=== PATIENT | female | born 1985 | race Caucasian/White ===

== ENCOUNTER 2020-02-23 22:53 | Emergency (ER) | payer BC ==
--- OUTSIDE RECORDS SUMMARY | 2020-02-23 22:55 | XMS REPORT | Clinical Summary ---
:1985 Author Organization [facility] Address [address] [place] [address] Care Team Providers Name Role Phone Angelita Gilbert MD Primary Care Provider Allergies Active Allergy Reactions Severity Noted Date Comments No Known Drug Allergies Other (See Comments) 6 Medications Medication Sig Dispensed Refills Start Date End Date Status acyclovir (ZOVIRAX) 400 TAKE ONE TABLET 60 tablet 1 03/21/2016 Active MG tablet BY MOUTH TWICE A DAY levomefolate calcium Take 7.5 mg by 30 tablet 2 10/12/2016 Active (L-METHYLFOLATE) 7.5 mg mouth daily. tabletIndications: Dysthymia Active Problems Problem Noted Date Anxiety 06/10/2015 Generalized anxiety disorder 06/10/2015 Herpes simplex virus (HSV) infection 06/10/2015 Irregular menstrual cycle 06/10/2015 Paresthesia 06/10/2015 Medical History Medical History Date Comments Anxiety Skin abnormality Family History Medical History Relation Name Comments Anxiety disorder Father Depression Father Diabetes Father Anxiety disorder Mother Depression Mother Relation Name Status Comments Father Mother Social History Tobacco Use Types Packs/Day Years Used Date Current Every Day Smoker Cigarettes Tobacco Cessation: Ready to Quit: No; Co unseling Given: Yes Comments: The patient started smoking at age 18 Alcohol Use Drinks/Week oz/Week Comments Yes Social Drinker Sex Assigned at Date Recorded Not on file Last Filed Vital Signs Not on file Plan of Treatment Health Maintenance Due Date Last Done Comments CERVICAL CANCER SCREENING 11/19/2007 INFLUENZA VACCINE 11/30/2019 Results Not on fileafter 02/22/2019
[2020-02-23 23:41] LABS: Absolute Lymphocytes (CBC) 2.9 K/uL (0.7-4.9); Basophils % 0.6 % (0-1.3); Hematocrit 34.2 % (36.0-45.0); Lymphocytes % 31.6 % (15.3-44.8); MPV 9.3 fL (7.6-11.3); RBC Red Blood Cell Count 3.88 M/uL (3.86-4.86)
[2020-02-23] MEDS ORDERED: ONDANSETRON 4 MG/2 ML VIAL ONE (23:47)
[2020-02-23] MEDS ORDERED: MAGNES/ALUMIN/SIMET 30ML UCUP ONE (23:47)
[2020-02-23] MEDS ORDERED: PANTOPRAZOLE 40 MG INJ ONE (23:47)
[2020-02-23] MEDS ORDERED: LIDOCAINE VISCOUS 2% SOLN 15 ML UDC ONE (23:48)
[2020-02-23] MEDS ORDERED: NA CHLORIDE 0.9% 1,000 ML ONE (23:48)
[2020-02-23 23:59] LABS: ALT/SGPT 19 U/L (12-78); AST/SGOT 14 U/L (15-37); Albumin 3.6 g/dL (3.4-5.0); Alkaline Phosphatase 43 U/L (45-117); BUN Blood Urea Nitrogen 12 mg/dL (7-18); Bicarbonate 26 mmol/L (21-32); Bilirubin Direct < 0.1 mg/dL (0-0.2); Bilirubin Total 0.3 mg/dL (0.2-1.0); Glucose Level 90 mg/dL (74-106); Lipase 68 U/L (73-393); Potassium 3.4 mmol/L (3.5-5.1); Protein, Total 7.3 g/dL (6.4-8.2); Sodium Level 143 mmol/L (136-145)
[2020-02-24] MEDS ORDERED: MORPHINE 2 MG/ML SYR ONE ×2 (00:26→01:00)
[2020-02-24 00:36] LABS: Urine Blood 2+ (NEG); Urine Glucose NEGATIVE (NEG); Urine Protein NEGATIVE (NEG); Urine Specific Gravity 1.015 (1.005-1.030)
[2020-02-24 01:21] LABS: Barbiturates NEGATIVE (NEGATIVE); Benzodiazepines NEGATIVE (NEGATIVE); Cocaine NEGATIVE (NEGATIVE); METHAMPHETAM NEGATIVE (NEGATIVE); Methadone NEGATIVE (NEGATIVE); Opiates NEGATIVE (NEGATIVE); Phencyclidine NEGATIVE (NEGATIVE); THC Cannibis NEGATIVE (NEGATIVE)
--- NOTE | 2020-02-24 01:59 | EDPHYS ---
Physician Documentation [facility] Name: Debra Elizondo Age: 34 yrs Sex: Female : 1985 Arrival Date: 02/23/2020 Time: 22:54 Bed 13 Private MD: ED Physician Abdoulaye Verde HPI: 02/22 23:10 This 34 yrs old Female presents to ER via Ambulatory with complaints of cp Abdominal Pain. 23:10 The patient presents with abdominal pain mid abdomen. Onset: The symptoms/episode cp began/occurred 2 day(s) ago. The symptoms radiate to chest. Associated signs and symptoms: Pertinent positives: nausea, Pertinent negatives: diarrhea, dysuria, fever, vomiting, vomiting blood. The symptoms are described as burning. Severity of pain: in the emergency department the pain is unchanged despite home interventions. The patient has experienced a previous episode, last month, seen at [facility]. Historical: - Allergies: 23:03 No Known Allergies; sg - Home Meds: 23:03 None [Active]; sg - PMHx: 23:03 None; sg - PSHx: 23:03 LEEP (oop electrosurgical excision); sg - Immunization history:: Adult Immunizations up to date. - Social history:: Smoking status: Patient reports the use of cigarette tobacco products. ROS: 23:15 Constitutional: Negative for body aches, chills, fever, poor PO intake. cp 23:15 Eyes: Negative for injury, pain, redness, and discharge. cp 23:15 ENT: Negative for ear pain, sore throat, difficulty swallowing, difficulty handling secretions. 23:15 Cardiovascular: Positive for radiating pain from abdomen, Negative for palpitations. 23:15 Respiratory: Negative for cough, shortness of breath, wheezing. 23:15 Abdomen/GI: Positive for abdominal pain, nausea, Negative for vomiting, diarrhea, constipation, anorexia, hematemesis. 23:15 Back: Negative for radiated pain. 23:15 : Negative for urinary symptoms. 23:15 Neuro: Negative for altered mental status, headache, weakness. 23:15 All other systems are negative. Exam: 23:20 Constitutional: The patient appears in no acute distress, alert, awake, non-toxic, well cp developed, well nourished, uncomfortable. 23:20 Head/Face: Normocephalic, atraumatic. cp 23:20 Eyes: Periorbital structures: appear normal, Conjunctiva: normal, no exudate, no injection, Sclera: no appreciated abnormality, Lids and lashes: appear normal, bilaterally. 23:20 ENT: External ear(s): are unremarkable, Nose: is normal, Mouth: Lips: moist, Oral mucosa: moist, Posterior pharynx: Airway: no evidence of obstruction, patent. 23:20 Chest/axilla: Inspection: normal. 23:20 Cardiovascular: Rate: tachycardic, Rhythm: regular. 23:20 Respiratory: the patient does not display signs of respiratory distress, Respirations: normal, no use of accessory muscles, no retractions, labored breathing, is not present, Breath sounds: are clear throughout, no decreased breath sounds. 23:20 Abdomen/GI: Inspection: abdomen appears normal, Bowel sounds: active, all quadrants, Palpation: soft, in all quadrants, mild abdominal tenderness, in all quadrants, rebound tenderness, is not appreciated, voluntary guarding, is not appreciated, involuntary guarding, is not appreciated. 23:20 Back: CVA tenderness, is absent. Vital Signs: 22:59 Pulse 108; Resp 20; Pulse Ox 98% ; Weight 63.5 kg (R); Height 5 ft. 4 in. (162.56 cm) sg (R); Pain 10/10; 02/23 00:07 BP 141 / 100; Pulse 79; Resp 16; Pulse Ox 100% on R/A; jb4 01:00 BP 125 / 98; Pulse 66; Resp 16; Pulse Ox 100% on R/A; jb4 01:45 BP 126 / 97; Pulse 65; Resp 16; Pulse Ox 100% on R/A; Pain 2/10; jb4 02/22 22:59 Body Mass Index 24.03 (63.50 kg, 162.56 cm) sg MDM: 02/22 23:02 Patient medically screened. cp 02/23 00:00 Differential diagnosis: cholecystitis, Cholelithiasis, gastritis, pancreatitis, Peptic cp Ulcer Disease, Perf. Duodenal Ulcer, Perf. Gastric Ulcer, Ureterolithiasis, urinary tract infection. 00:46 Data reviewed: vital signs, nurses notes, lab test result(s). Transition of care: After cp a detail discussion of the patient's case, care is transferred to Abdoulaye Verde MD. 02/22 23:06 Order name: Basic Metabolic Panel; Complete Time: 00:02 cp 02/23 00:40 Interpretation: Normal except: K 3.4; CL 111. cp 02/22 23:06 Order name: CBC with Diff; Complete Time: 00:02 cp 02/23 00:41 Interpretation: Normal except: HGB 11.5; HCT 34.2. cp 02/22 23:06 Order name: Hepatic Function; Complete Time: 00:02 cp 02/22 23:06 Order name: Lipase; Complete Time: 00:02 cp 02/23 00:40 Interpretation: LIP 68; Reviewed. cp 02/23 00:24 Order name: Urine Dipstick--Ancillary (enter results); Complete Time: 00:40 mw2 02/23 00:40 Interpretation: Normal except: UBLD 2+. cp 02/23 00:24 Order name: Urine --Ancillary (enter results); Complete Time: 00:40 mw2 02/23 00:08 Order name: CT Abd/Pelvis - IV Contrast Only cp 02/23 00:46 Order name: UDS; Complete Time: 01:23 cp 02/22 22:56 Order name: Urine Dipstick-Ancillary (obtain specimen); Complete Time: 23:30 cp 02/22 22:56 Order name: Urine Test (obtain specimen); Complete Time: 23:30 cp 02/22 23:06 Order name: IV Saline Lock; Complete Time: 23:31 cp 02/22 23:06 Order name: Labs collected and sent; Complete Time: 23:31 cp 02/23 00:46 Order name: EKG - Nurse/Tech; Complete Time: 01:08 cp Administered Medications: Discontinued: NS 0.9% 1000 ml IV at 1 bolus Per protocol; 1000 mL bolus 02/22 23:50 Drug: NS 0.9% 1000 ml Route: IV; Rate: 1 bolus; Site: right antecubital; [facility] 02/23 02:10 Follow up: Response: No adverse reaction; IV Status: Order to discontinue infusion 02/22 23:50 Drug: Zofran (Ondansetron) 4 mg Route: IVP; Site: right antecubital; 02/23 00:20 Follow up: Response: No adverse reaction [facility] 02/22 23:54 Drug: ProTONIX 40 mg Route: IVP; Site: right antecubital; jb4 02/23 00:20 Follow up: Response: No adverse reaction jb4 02/22 23:55 Drug: GI Cocktail without - (Maalox Suspension 30 ml, Lidocaine Liquid 2 % 15 jb4 ml) Route: PO; 02/23 00:25 Follow up: Response: No adverse reaction; No change in condition jb4 00:22 Drug: morphine 2 mg Route: IVP; Site: right antecubital; jb4 00:50 Drug: morphine 2 mg Route: IVP; Site: right antecubital; jb4 01:08 Follow up: Response: No adverse reaction; Pain is decreased; RASS: Alert and Calm (0) 4 Disposition: 04:20 Co-signature as Attending Physician, Abdoulaye Verde MD. mh7 Disposition: 02/24/20 01:59 Discharged to Home. Impression: Abdominal Pain, Vomiting. - Condition is Stable. - Discharge Instructions: Nausea and Vomiting, Adult, [id number], Abdominal Pain, Adult, Morm-[id number]-[id number], Clear Liquid Diet, [id number]-[id number]. - Prescriptions for Zofran ODT 4 mg Oral tablet,disintegrating - place 1 tablet by TRANSLINGUAL route every 8 hours As needed; 10 tablet. Bentyl 20 mg Oral Tablet - take 1 tablet by ORAL route every 6 hours As needed; 20 tablet. Pepcid 20 mg Oral Tablet - take 1 tablet by ORAL route every 12 hours for 5 days; 10 tablet. - Medication Reconciliation Form, Thank You Letter, Antibiotic Education, Prescription Opioid Use form. - Follow up: Private Physician; When: 1 - 2 days; Reason: Worsening of condition, Recheck today's complaints, Continuance of care, Re-evaluation by your physician. - Problem is new. - Symptoms have improved. Signatures: Dispatcher [employer] EDMS Andrés Cantu RN RN sg Page, Corey, PA PA cp Bryson, James, RN RN [facility] Abdoulaye Verde MD MD mh7 Corrections: (The following items were deleted from the chart) 02:10 01:59 02/24/2020 01:59 Discharged to Home. Impression: Abdominal Pain; Vomiting. jb4 Condition is Stable. Forms are Medication Reconciliation Form, Thank You Letter, Antibiotic Education, Prescription Opioid Use. Follow up: Private Physician; When: 1 - 2 days; Reason: Worsening of condition, Recheck today's complaints, Continuance of care, Re-evaluation by your physician. Problem is new. Symptoms have improved. mh7
--- NOTE | 2020-02-24 01:59 | ER ---
Nurse's Notes [facility] Name: Debra Elizondo Age: 34 yrs Sex: Female : 1985 Arrival Date: 02/23/2020 Time: 22:54 Bed 13 Private MD: Diagnosis: Abdominal Pain;Vomiting Presentation: 02/22 22:59 Chief complaint: Patient states: Reports epigastric pain described as pressure and sg burning sensation that radiates into the lower chest. pt states had similar episode several weeks ago, was seen at [place] [facility], obs overnight and improved was dc to home. pt states trying several OTC medications such as xantac,pepto/and gas x with no relief. pt denies N/V/D/Fever, states pain worsens with standing upright, nothing has relieved the pain. Coronavirus screen: Client denies travel out of the [place] in the last 14 days. At this time, the client does not indicate any symptoms associated with coronavirus-19. Ebola Screen: Patient negative for fever greater than or equal to 101.5 degrees Fahrenheit, and additional compatible Ebola Virus Disease symptoms Patient denies exposure to infectious person. Patient denies travel to an Ebola-affected area in the 21 days before illness onset. No symptoms or risks identified at this time. Initial Sepsis Screen: Does the patient meet any 2 criteria? No. Patient's initial sepsis screen is negative. Does the patient have a suspected source of infection? No. Patient's initial sepsis screen is negative. Risk Assessment: Do you want to hurt yourself or someone else? Patient reports no desire to harm self or others. Onset of symptoms was February 22, 2020. Care prior to arrival: None. Transition of care: patient was not received from another setting of care. 22:59 Acuity: FREDA 3 sg 22:59 Method Of Arrival: Ambulatory sg Historical: - Allergies: 23:03 No Known Allergies; sg - Home Meds: 23:03 None [Active]; sg - PMHx: 23:03 None; sg - PSHx: 23:03 LEEP (oop electrosurgical excision); sg - Immunization history:: Adult Immunizations up to date. - Social history:: Smoking status: Patient reports the use of cigarette tobacco products. Screenin:00 Abuse screen: Denies threats or abuse. Nutritional screening: No deficits noted. jb4 Tuberculosis screening: No symptoms or risk factors identified. Fall Risk None identified. Assessment: 23:00 General: Appears in no apparent distress. uncomfortable, Behavior is calm, cooperative, jb4 appropriate for age. Pain: Complains of pain in epigastric area Pain radiates to chest and neck Pain currently is 10 out of 10 on a pain scale. Quality of pain is described as burning. Neuro: Level of Consciousness is awake, alert, obeys commands, Oriented to person, place, time, situation. Cardiovascular: Patient's skin is warm and dry. Respiratory: Airway is patent Respiratory effort is even, unlabored, Respiratory pattern is regular, symmetrical. GI: Abdomen is flat, non-distended. : No signs and/or symptoms were reported regarding the genitourinary system. EENT: No signs and/or symptoms were reported regarding the EENT system. Derm: Skin is intact, Skin is pink, warm \T\ dry. Musculoskeletal: Circulation, motion, and sensation intact. Range of motion: intact in all extremities. 02/23 00:00 Reassessment: Patient appears in no apparent distress at this time. Patient and/or jb4 family updated on plan of care and expected duration. Pain level reassessed. Patient is alert, oriented x 3, equal unlabored respirations, skin warm/dry/pink. 01:00 Reassessment: Patient appears in no apparent distress at this time. Patient and/or jb4 family updated on plan of care and expected duration. Pain level reassessed. Patient is alert, oriented x 3, equal unlabored respirations, skin warm/dry/pink. 01:51 Reassessment: Patient appears in no apparent distress at this time. Patient and/or jb4 family updated on plan of care and expected duration. Pain level reassessed. Patient is alert, oriented x 3, equal unlabored respirations, skin warm/dry/pink. Vital Signs: 02/22 22:59 Pulse 108; Resp 20; Pulse Ox 98% ; Weight 63.5 kg (R); Height 5 ft. 4 in. (162.56 cm) sg (R); Pain 02/07; 02/23 00:07 BP 141 / 100; Pulse 79; Resp 16; Pulse Ox 100% on R/A; jb4 01:00 BP 125 / 98; Pulse 66; Resp 16; Pulse Ox 100% on R/A; jb4 01:45 BP 126 / 97; Pulse 65; Resp 16; Pulse Ox 100% on R/A; Pain 2/10; jb4 02/22 22:59 Body Mass Index 24.03 (63.50 kg, 162.56 cm) ED Course: 02/22 22:54 Patient arrived in ED. cl3 22:56 Raúl Escamilla PA is PHCP. cp 22:56 Abdoulaye Verde MD is Attending Physician. cp 22:59 Arm band placed on. sg 23:01 Triage completed. sg 23:13 Lane Lora, ARELI is Primary Nurse. jb4 23:28 Inserted saline lock: 20 gauge in right antecubital area, using aseptic technique. jp3 Blood collected. 23:28 Initial lab(s) drawn, by me, sent to lab. Patient maintains SpO2 saturation greater jp3 than 95% on room air. 23:31 Bed in low position. Call light in reach. Side rails up X 1. Warm blanket given. Verbal jp3 reassurance given. Pulse ox on. NIBP on. 02/23 00:51 CT Abd/Pelvis - IV Contrast Only In Process Unspecified. EDMS 02:09 No provider procedures requiring assistance completed. Patient did not have IV access jb4 during this emergency room visit. Administered Medications: Discontinued: NS 0.9% 1000 ml IV at 1 bolus Per protocol; 1000 mL bolus 02/22 23:50 Drug: NS 0.9% 1000 ml Route: IV; Rate: 1 bolus; Site: right antecubital; jb4 02/23 02:10 Follow up: Response: No adverse reaction; IV Status: Order to discontinue infusion jb4 02/22 23:50 Drug: Zofran (Ondansetron) 4 mg Route: IVP; Site: right antecubital; jb4 02/23 00:20 Follow up: Response: No adverse reaction jb4 02/22 23:54 Drug: ProTONIX 40 mg Route: IVP; Site: right antecubital; jb4 02/23 00:20 Follow up: Response: No adverse reaction jb4 02/22 23:55 Drug: GI Cocktail without - (Maalox Suspension 30 ml, Lidocaine Liquid 2 % 15 jb4 ml) Route: PO; 02/23 00:25 Follow up: Response: No adverse reaction; No change in condition jb4 00:22 Drug: morphine 2 mg Route: IVP; Site: right antecubital; jb4 00:50 Drug: morphine 2 mg Route: IVP; Site: right antecubital; jb4 01:08 Follow up: Response: No adverse reaction; Pain is decreased; RASS: Alert and Calm (0) jb4 Outcome: 01:59 Discharge ordered by . carrol 02:09 Discharged to home ambulatory, with family. jb4 02:09 Condition: stable 02:09 Discharge instructions given to patient, Instructed on discharge instructions, follow up and referral plans. medication usage, Demonstrated understanding of instructions, follow-up care, medications, Prescriptions given X 3. 02:10 Patient left the ED. jb4 Signatures: Dispatcher [employer] EDMS Andrés Cantu, RN RN Raúl Love PA PA cp Bryson, James, RN RN jb4 Deny Escobar jp3 Prieto Davison cl3 Abdoulaye Verde MD MD mh7
[2020-02-24 02:19] VITALS: O2SAT 100
[2020-02-24 02:22] VITALS: BP 126/97
--- NOTE | 2020-02-24 12:22 | RAD REPORT ---
EXAM DESCRIPTION: CT Abdomen and Pelvis With Intravenous Contrast CLINICAL HISTORY: The patient is 34 years old and is Female; ABD PAIN TECHNIQUE: Axial computed tomography images of the abdomen and pelvis with intravenous contrast. S agittal and coronal reformatted images were created and reviewed. This CT exam was performed using one or more of the following dose reduction techniques: automated exposure control, adjustment of t he mA and/or kV according to patient size, and/or use of iterative reconstruction technique. COMPARISON: No relevant prior studies available. FINDINGS: LUNG BASES: Unremarkable. No mass. No consolidation. ABDOMEN: LIVER: The liver is diffusely fatty. GALLBLADDER AND BILE DUCTS: The gallbladder is contracted. PANCREAS: No ductal dilation. No mass. SPLEEN: Unremarkable. ADRENALS: Unremarkable. No mass. KIDNEYS AND URETERS: Unremarkable. The kidneys enhance symmetrically. No obstructing renal or ur eteral calculus is seen. No hydronephrosis or hydroureter. No perinephric fluid or stranding. STOMACH AND BOWEL: The stomach is not well distended. The small bowel is normal in caliber. Stoo l is present throughout the colon. There is no mucosal thickening or evidence of bowel obstruction. PELVIS: APPENDIX: The appendix is normal in caliber without surrounding inflammation. BLADDER: Unremarkable. No mass. REPRODUCTIVE: Unremarkable as visualized. A tampon is in place. ABDOMEN and PELVIS: INTRAPERITONEAL SPACE: Unremarkable. No free air. No significant fluid collection. BONES/JOINTS: No acute fracture. SOFT TISSUES: The soft tissues are normal. VASCULATURE: Unremarkable. No abdominal aortic aneurysm. LYMPH NODES: Unremarkable. No enlarged lymph nodes. IMPRESSION: No acute findings on this contrasted CT of the abdomen and pelvis to explain the patient 's symptoms. Electronically signed by: Heike Alaniz MD 02/24/2020 1:08 AM CDT Due to temporary technical issues with the PACS/Fluency reporting system, reports are being signed by the in house radiologist without review as a courtesy to ensure prompt reporting. The interpreting r adiologist is fully responsible for the content of the report.
--- NOTE | 2020-02-25 10:10 | EKG ---
Test Date: 2020-02-24 Test Time: 00:57:38 Pick Up Operator: DANI MEASUREMENT RESULTS: Intervals: Rate: 62 NE: 170 QRSD: 84 QT: 400 QTc: 406 [place]: P: 55 NE: 170 QRS: 77 T: 62 INTERPRETIVE STATEMENTS: Normal sinus rhythm Normal ECG Compared to ECG 05/21/2015 19:50:07 Sinus arrhythmia no longer present Electronically Signed On 02-25-20 10:06:55 CDT by Steve Heart
== END 2020-02-24 02:10 | disposition home or self-care (01) ==
LOC: ER 22:53
DX: R11.10 Vomiting, unspecified (principal); F17.210 Nicotine dependence, cigarettes, uncomplicated
CPT/HCPCS: 96361; 93005; 85025; 80048; 36415; 81025; 80076; 80307 ×8; 81003; 83690; 74177; 96375; 96374; 99284; Q9967; C9113; J2270 ×2; J7030; J2405

== ENCOUNTER 2021-01-28 19:10 | Emergency (ER) | payer BC ==
[2021-01-28 20:01] LABS: Urine Blood 1+ (Negative); Urine Glucose Negative (Negative); Urine Protein Negative (Negative); Urine Specific Gravity 1.015 (1.005-1.030); Urine pH 5.5 (5.0-7.0)
[2021-01-28 20:25] LABS: Urine Specific Gravity/Preg 1.015 (1.005-1.030)
[2021-01-28 20:36] LABS: Absolute Lymphocytes (CBC) 2.8 K/uL (0.7-4.9); Basophils % 0.6 % (0-1.3); Hematocrit 37.4 % (36.0-45.0); Lymphocytes % 26.1 % (15.3-44.8); MPV 8.7 fL (7.6-11.3); RBC Red Blood Cell Count 4.04 M/uL (3.86-4.86)
[2021-01-28] MEDS ORDERED: ONDANSETRON 4 MG/2 ML VIAL ONE (20:43)
[2021-01-28] MEDS ORDERED: MORPHINE 4 MG/ML SYR ONE (20:43)
[2021-01-28] MEDS ORDERED: NA CHLORIDE 0.9% 1,000 ML ONE (20:43)
[2021-01-28] MEDS ORDERED: MAGNES/ALUMIN/SIMET 30ML UCUP ONE (20:43)
[2021-01-28] MEDS ORDERED: LIDOCAINE VISCOUS 2% SOLN 15 ML UDC ONE (20:44)
[2021-01-28] MEDS ORDERED: FAMOTIDINE 20 MG/2 ML VIAL IV ONE (20:44)
--- NOTE | 2021-01-28 20:47 | RAD REPORT ---
EXAM DESCRIPTION: US - Abdomen Exam Limited - 01/28/2021 8:32 pm CLINICAL HISTORY: Abdominal pain. COMPARISON: None. FINDINGS: The gallbladder wall is not thickened. A gallstone is not seen. The biliary tree is normal caliber. Mild fatty liver IMPRESSION: Unremarkable gallbladder ultrasound. Mild fatty liver
--- NOTE | 2021-01-28 20:54 | RAD REPORT ---
EXAM DESCRIPTION: CT - Abdomen Pelvis W Contrast - 01/28/2021 8:41 pm CLINICAL HISTORY: Abdominal pain COMPARISON: 2019 TECHNIQUE: Computed axial tomography of the abdomen pelvis was obtained. 100 cc Isovue-300 was admin istered intravenously. Oral contrast was not requested which limits evaluation of bowel. All CT scans are performed using dose optimization technique as appropriate and may include automated exposure control or mA/KV adjustment according to patient size. FINDINGS: Mild fatty liver. Low-density area within the left lobe is too small to characterize but p robably is benign Spleen, pancreas, adrenal and kidneys appear unremarkable. There is no evidence of diverticulitis. Normal appendix Tampon within the vagina IMPRESSION: No acute abnormality is displayed.
[2021-01-28 21:03] LABS: ALT/SGPT 33 U/L (12-78); AST/SGOT 19 U/L (15-37); Albumin 3.8 g/dL (3.4-5.0); Alkaline Phosphatase 42 U/L (45-117); BUN Blood Urea Nitrogen 12 mg/dL (7-18); Bicarbonate 27 mmol/L (21-32); Bilirubin Direct < 0.1 mg/dL (0-0.2); Bilirubin Total 0.2 mg/dL (0.2-1.0); Glucose Level 91 mg/dL (74-106); Lipase 101 U/L (73-393); Protein, Total 7.5 g/dL (6.4-8.2); Sodium Level 142 mmol/L (136-145)
--- NOTE | 2021-01-28 22:00 | ER ---
Nurse's Notes [facility] Name: Debra Elizondo Age: 35 yrs Sex: Female : 1985 Arrival Date: 01/28/2021 Time: 19:20 Bed DIS2 Private MD: Diagnosis: Upper abdominal pain, unspecified Presentation: 01/28 19:23 Chief complaint: Patient states: Pain in Abdomen, back and chest began yesterday. Pt vg1 denies NVD. Pt PCP, Dr Castro office, prescribed Pantoprazole and Famotidine today. Pt states medication is not working. Coronavirus screen: Vaccine status: Patient reports being unvaccinated. Ebola Screen: Patient negative for fever greater than or equal to 101.5 degrees Fahrenheit, and additional compatible Ebola Virus Disease symptoms. Initial Sepsis Screen: Does the patient meet any 2 criteria? No. Patient's initial sepsis screen is negative. Does the patient have a suspected source of infection? No. Patient's initial sepsis screen is negative. Risk Assessment: Do you want to hurt yourself or someone else? Patient reports no desire to harm self or others. Onset of symptoms was January 27, 2021. 19:23 Method Of Arrival: Ambulatory vg1 19:23 Acuity: FREDA 3 vg1 Triage Assessment: 19:29 General: Appears in no apparent distress. uncomfortable, Behavior is calm, cooperative. vg1 Pain: Complains of pain in epigastric area, right upper quadrant and left upper quadrant and back. 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 - Social history:: Smoking status: Patient reports the use of cigarette tobacco products, smokes one-half pack cigarettes per day. - Family history:: not pertinent. Screenin:16 Abuse screen: Denies threats or abuse. Denies injuries from another. Nutritional kg screening: No deficits noted. Tuberculosis screening: No symptoms or risk factors identified. Fall Risk None identified. Assessment: 19:40 General: Appears uncomfortable, Behavior is calm, cooperative, appropriate for age, kg quiet. Pain: Complains of pain in epigastric area, right upper quadrant and left upper quadrant Pain currently is 10 out of 10 on a pain scale. at worst was 10 out of 10 on a pain scale. level that patient reports is acceptable is 5 out of 10 on a pain scale. Quality of pain is described as aching, crampy, sharp, squeezing. Neuro: No deficits noted. Cardiovascular: No deficits noted. Respiratory: No deficits noted. GI: Reports upper abdominal pain, nausea. : No deficits noted. EENT: No deficits noted. Derm: No deficits noted. Musculoskeletal: No deficits noted. Vital Signs: 19:23 BP 146 / 91; Pulse 65; Resp 16; Temp 97.3; Pulse Ox 100% ; Weight 72.57 kg; Height 5 vg1 ft. 4 in. (162.56 cm); Pain 6/10; 22:28 BP 137 / 83; Pulse 79; Resp 20; Pulse Ox 98% on R/A; kg 19:23 Body Mass Index 27.46 (72.57 kg, 162.56 cm) vg1 ED Course: 19:20 Patient arrived in ED. cf2 19:26 Triage completed. vg1 19:29 Arm band placed on. vg1 19:32 Marnie Dougherty MD is Attending Physician. ma2 20:10 Inserted saline lock: 20 gauge in left antecubital area, using aseptic technique. Blood kg collected. 20:13 Stacy Ruelas, RN is Primary Nurse. kg 20:14 Basic Metabolic Panel Sent. kg 20:14 CBC with Diff Sent. kg 20:14 Hepatic Function Sent. kg 20:14 Lipase Sent. kg 20:14 Urine --Ancillary (enter results) Sent. kg 20:29 US Abdomen Limited In Process Unspecified. EDMS 20:40 CT Abd/Pelvis - IV Contrast Only In Process Unspecified. EDMS 21:16 Patient has correct armband on for positive identification. kg 21:59 Nataliya Neville MD is Referral Physician. ma2 22:28 IV discontinued, intact, bleeding controlled, No redness/swelling at site. Pressure kg dressing applied. 22:29 No provider procedures requiring assistance completed. kg Administered Medications: 20:31 Drug: morphine 4 mg Route: IVP; Site: left antecubital; kg 22:17 Follow up: Response: No adverse reaction; Marked relief of symptoms kg 20:32 Drug: NS 0.9% 1000 ml Route: IV; Rate: 1 bolus; Site: left antecubital; kg 22:30 Follow up: IV Status: Completed infusion; IV Intake: 1000ml kg 22:30 Follow up: Response: No adverse reaction kg 20:32 Drug: GI Cocktail without - (Maalox Suspension 30 ml, Lidocaine Liquid 2 % 15 kg ml) Route: PO; 22:18 Follow up: Response: No adverse reaction kg 20:35 Drug: Zofran (Ondansetron) 4 mg Route: IVP; Site: left antecubital; kg 22:18 Follow up: Response: No adverse reaction kg 20:37 Drug: Pepcid (famotidine) 20 mg Route: IVP; Site: left antecubital; kg 22:18 Follow up: Response: No adverse reaction kg 21:42 Drug: Dilaudid (HYDROmorphone) 1 mg Route: IVP; Site: left antecubital; kg 22:18 Follow up: Response: No adverse reaction; Marked relief of symptoms kg Intake: 22:30 IV: 1000ml; Total: 1000ml. kg Outcome: 21:59 Discharge ordered by . arash 22:29 Discharged to home ambulatory. kg 22:29 Condition: improved 22:29 Discharge instructions given to patient, Instructed on discharge instructions, follow up and referral plans. Demonstrated understanding of instructions, Prescriptions given X 1. 22:30 Patient left the ED. kg Signatures: Dispatcher [employer] EDMS Marnie Dougherty MD MD ma2 Lo Leyva 2 Cherelle Bruce, RN RN vg1 Stacy Ruelas RN RN kg Corrections: (The following items were deleted from the chart) 21:16 20:10 Inserted saline lock: 20 gauge in left antecubital area, using aseptic technique. kg kg
--- NOTE | 2021-01-28 22:00 | EDPHYS ---
Physician Documentation [facility] Name: Debra Elizondo Age: 35 yrs Sex: Female : 1985 Arrival Date: 01/28/2021 Time: 19:20 Bed DIS2 Private MD: ED Physician Marnie Dougherty HPI: 01/28 21:58 This 35 yrs old Female presents to ER via Ambulatory with complaints of ma2 Abdominal Pain. 21:58 The patient presents with abdominal pain in the epigastric area. Onset: The ma2 symptoms/episode began/occurred gradually, 1 week(s) ago. The symptoms do not radiate. Associated signs and symptoms: Pertinent negatives: blood in stools, constipation, dysuria, fever, vaginal discharge, vomiting blood. The symptoms are described as burning. Severity of pain: At its worst the pain was moderate in the emergency department the pain has improved. The patient has experienced similar episodes in the past, a few times. 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 - Social history:: Smoking status: Patient reports the use of cigarette tobacco products, smokes one-half pack cigarettes per day. - Family history:: not pertinent. ROS: 21:58 Constitutional: Negative for fever, chills, and weight loss. ma2 21:58 All other systems are negative. Exam: 21:58 Constitutional: This is a well developed, well nourished patient who is awake, alert, ma2 and in no acute distress. Head/Face: Normocephalic, atraumatic. Eyes: Pupils equal round and reactive to light, extra-ocular motions intact. Lids and lashes normal. Conjunctiva and sclera are non-icteric and not injected. Cornea within normal limits. Periorbital areas with no swelling, redness, or edema. ENT: Nares patent. No nasal discharge, no septal abnormalities noted. Tympanic membranes are normal and external auditory canals are clear. Oropharynx with no redness, swelling, or masses, exudates, or evidence of obstruction, uvula midline. Mucous membranes moist. Neck: Trachea midline, no thyromegaly or masses palpated, and no cervical lymphadenopathy. Supple, full range of motion without nuchal rigidity, or vertebral point tenderness. No Meningismus. Chest/axilla: Normal chest wall appearance and motion. Nontender with no deformity. No lesions are appreciated. Cardiovascular: Regular rate and rhythm with a normal S1 and S2. No gallops, murmurs, or rubs. Normal PMI, no JVD. No pulse deficits. Respiratory: Lungs have equal breath sounds bilaterally, clear to auscultation and percussion. No rales, rhonchi or wheezes noted. No increased work of breathing, no retractions or nasal flaring. Abdomen/GI: Soft, non-tender, with normal bowel sounds. No distension or tympany. No guarding or rebound. No evidence of tenderness throughout. Back: No spinal tenderness. No costovertebral tenderness. Full range of motion. Skin: Warm, dry with normal turgor. Normal color with no rashes, no lesions, and no evidence of cellulitis. MS/ Extremity: Pulses equal, no cyanosis. Neurovascular intact. Full, normal range of motion. Neuro: Awake and alert, GCS 15, oriented to person, place, time, and situation. Cranial nerves II-XII grossly intact. Motor strength 5/5 in all extremities. Sensory grossly intact. Cerebellar exam normal. Normal gait. Vital Signs: 19:23 BP 146 / 91; Pulse 65; Resp 16; Temp 97.3; Pulse Ox 100% ; Weight 72.57 kg; Height 5 vg1 ft. 4 in. (162.56 cm); Pain 6/10; 22:28 BP 137 / 83; Pulse 79; Resp 20; Pulse Ox 98% on R/A; kg 19:23 Body Mass Index 27.46 (72.57 kg, 162.56 cm) vg1 MDM: 19:33 Patient medically screened. ma2 21:58 Differential diagnosis: gastritis, gastroesophageal reflux disease, Hepatitis, Herpes ma2 Zoster, Irritable bowel syndrome. Data reviewed: vital signs, nurses notes. Counseling: I had a detailed discussion with the patient and/or guardian regarding: the historical points, exam findings, and any diagnostic results supporting the discharge/admit diagnosis, the presence of at least one elevated blood pressure reading (>120/80) during this emergency department visit, the need for outpatient follow up. Response to treatment: the patient's symptoms have resolved after treatment. 01/28 19:34 Order name: Basic Metabolic Panel [facility] 01/28 19:34 Order name: CBC with Diff [facility] 01/28 19:34 Order name: Hepatic Function [facility] 01/28 19:34 Order name: Lipase [facility] 01/28 19:35 Order name: Basic Metabolic Panel; Complete Time: 21:32 [facility] 01/28 19:35 Order name: CBC with Automated Diff; Complete Time: 21:32 [facility] 01/28 19:35 Order name: Liver (Hepatic) Function; Complete Time: 21:32 [facility] 01/28 19:35 Order name: Lipase; Complete Time: 21:32 [facility] 01/28 20:01 Order name: Urine Dipstick-Ancillary; Complete Time: 21:32 [facility] 01/28 20:03 Order name: Urine --Ancillary (enter results); Complete Time: 21:32 [facility] 01/28 20:07 Order name: CT Abd/Pelvis - IV Contrast Only; Complete Time: 21:32 [facility] 01/28 20:07 Order name: US Abdomen Limited; Complete Time: 21:32 [facility] 01/28 19:34 Order name: IV Saline Lock; Complete Time: 20:14 [facility] 01/28 19:34 Order name: Labs collected and sent; Complete Time: 20:14 [facility] 01/28 19:34 Order name: Urine Dipstick-Ancillary (obtain specimen); Complete Time: 20:13 [facility] 01/28 19:34 Order name: Urine Test (obtain specimen); Complete Time: 20:13 ma2 Administered Medications: 20:31 Drug: morphine 4 mg Route: IVP; Site: left antecubital; kg 22:17 Follow up: Response: No adverse reaction; Marked relief of symptoms kg 20:32 Drug: NS 0.9% 1000 ml Route: IV; Rate: 1 bolus; Site: left antecubital; kg 22:30 Follow up: IV Status: Completed infusion; IV Intake: 1000ml kg 22:30 Follow up: Response: No adverse reaction kg 20:32 Drug: GI Cocktail without - (Maalox Suspension 30 ml, Lidocaine Liquid 2 % 15 kg ml) Route: PO; 22:18 Follow up: Response: No adverse reaction kg 20:35 Drug: Zofran (Ondansetron) 4 mg Route: IVP; Site: left antecubital; kg 22:18 Follow up: Response: No adverse reaction kg 20:37 Drug: Pepcid (famotidine) 20 mg Route: IVP; Site: left antecubital; kg 22:18 Follow up: Response: No adverse reaction kg 21:42 Drug: Dilaudid (HYDROmorphone) 1 mg Route: IVP; Site: left antecubital; kg 22:18 Follow up: Response: No adverse reaction; Marked relief of symptoms kg Disposition Summary: 01/28/21 21:59 Discharge Ordered Location: Home ma2 Condition: Stable ma2 Diagnosis - Upper abdominal pain, unspecified ma2 Followup: ma2 - With: Nataliya Neville MD - When: Tomorrow - Reason: Continuance of care Discharge Instructions: - Discharge Summary Sheet ma2 - Abdominal Pain, Adult ma2 Forms: - Medication Reconciliation Form ma2 - Thank You Letter ma2 - Antibiotic Education ma2 - Prescription Opioid Use ma2 Prescriptions: - Diclofenac Sodium 75 mg Oral Tablet Sustained Release - take 1 tablet by ORAL route 2 times per day; 30 tablet; Refills: 0, Product ma2 Selection Permitted Signatures: Dispatcher [employer] Marnie Eugene MD MD ma2 Cherelle Bruce, RN RN vg1 Stacy Ruelas RN RN kg
[2021-01-28] MEDS ORDERED: HYDROMORPHONE HCL 1 MG/ML INJ ONE (22:10)
[2021-01-28 22:34] VITALS: TEMP 97.3
[2021-01-28 22:35] VITALS: BP 137/83; O2SAT 98
== END 2021-01-28 22:30 | disposition home or self-care (01) ==
LOC: ER 19:10
DX: R10.13 Epigastric pain (principal); K21.9 Gastro-esophageal reflux disease without esophagitis; F17.210 Nicotine dependence, cigarettes, uncomplicated
CPT/HCPCS: 96361; 85025; 80048; 36415; 81025; 82565; 80076; 81003; 83690; 74177; 76705; 96375; 96374; 99284; Q9967; J1170; J7030; J2405

== ENCOUNTER 2021-07-20 21:22 | Emergency (ER) | payer BC ==
--- OUTSIDE RECORDS SUMMARY | 2021-07-20 21:26 | XMS REPORT | Continuity of Care Document ---
:1985 Author Organization [facility] t Address [address] [place] [address] Care Team Providers Name Role Phone RADIOLOGY Attending Clinician Unavailable Physician, Primary or Family Admitting Clinician Unavailabl e Payers Payer Name Policy Type Policy Number Effective Date Expiration Date S ource Problems This patient has no known problems. Allergies, Adverse Reactions, Alerts Allergy Allergy Status Severity Reaction(s) Onset Inactive Treating Comm ents Source Name Type Date Date Clinician No Known DA [facility] No Known DA Active [facility] NO KNOWN Drug Active [facility] Medications This patient has no known medications. Procedures This patient has no known procedures. Encounters Start End Encounter Admission Attending Care Care Encounter Source Date/Time Date/Time Type Type Clinicians Facility Department ID 2020-07-13 Inpatient [facility] [id number] [facility] 12:37:00 [id number] [facility] 2020-05-11 2020-05-11 Outpatient R RADIOLOGY [facility] [id number] [facility] 00:00:00 00:00:00 [id number] [facility] 2020-05-06 2020-05-06 Outpatient R RADIOLOGY [facility] [id number] [facility] 09:00:00 09:00:00 [id number] [facility] Results Test Description Test Time Test Comments Results Result [facility] e Comments - XR CHEST 1 V 2020-07-13 13:34:00 [facility] 1985 Sex: F Name: MIKE GREGORIO [facility] : 1985 Age/S: 34 / F [id number] Unit #: [id number] Loc: [place] [address] Phys: Baldemar Diaz MD Acct: [id number] Dis Date: Status: REG ER PHONE #: [phone] Exam Date: 07/13/2020 1320 FAX #: Reason: CHEST PAIN EXAMS: CPT: [id number] XR CHEST 1 V 48546 Fluoro Time: DAP (Gy m2): Air Kerma (mGy): EXAM: - XR CHEST 1 V Location code:C3 HISTORY: Chest pain COMPARISON: None available time of interpretation. FINDINGS: Frontal view of the chest is submitted. Heart size and vascularity are within normal limits. The lungs are clear of focal consolidation. No effusion or evidence of pneumothorax.. No acute osseous pathology. IMPRESSION 1. No radiographic evidence of acute cardiopulmonary process. at 1334 Reported and signed by: Suzette Iverson M.D. CC: Baldemar Diaz MD PAGE 1 Signed Report Name: MIKE GREGORIO [facility] : 1985 Age/S: 34 / F [id number] Unit #: [id number] Loc: [place] [address] Phys: Baldemar Diaz MD Acct: [id number] Dis Date: Status: REG ER PHONE #: [phone] Exam Date: 07/13/2020 1320 FAX #: Reason: CHEST PAIN EXAMS: CPT: [id number] XR CHEST 1 V 50905 Fluoro Time: DAP (Gy m2): Air Kerma (mGy): <Continued> Technologist: Bobo Pulliam RT(R)(CT) Trnscb Date/Time: 07/13/2020 (1313) [id number] Orig Print D/T: S: 07/13/2020 (1844) PAGE 2 Signed Report
[2021-07-20 22:08] LABS: Urine Blood 3+ (Negative); Urine Glucose Negative (Negative); Urine Protein Negative (Negative); Urine Specific Gravity >=1.030 (1.005-1.030); Urine pH 5.5 (5.0-7.0)
[2021-07-20 22:22] LABS: Urine Specific Gravity/Preg >1.030 (1.005-1.030)
--- NOTE | 2021-07-20 23:48 | ER ---
Nurse's Notes [facility] Name: Debra Elizondo Age: 35 yrs Sex: Female : 1985 Arrival Date: 07/20/2021 Time: 21:27 Bed 20 Private MD: Diagnosis: Abnormal uterine and vaginal bleeding, unspecified Presentation: 07/20 21:41 Chief complaint: Patient states: "I've been on my period for 3 days, its very heavy to ab2 the point I have to wear a super tampon and a pad at the same time. For the past 2 days I have had this feeling that I cant even get the tampon in fully as if something is in there stopping it. I did a self exam and there is something hard in there." Pt c/o low back pain, abdominal pain and nausea as well. Coronavirus screen: Vaccine status: Patient reports being unvaccinated. Client denies travel out of the [place] in the last 14 days. At this time, the client does not indicate any symptoms associated with coronavirus-19. Ebola Screen: Patient negative for fever greater than or equal to 101.5 degrees Fahrenheit, and additional compatible Ebola Virus Disease symptoms Patient denies exposure to infectious person. Patient denies travel to an Ebola-affected area in the 21 days before illness onset. No symptoms or risks identified at this time. Initial Sepsis Screen: Does the patient meet any 2 criteria? No. Patient's initial sepsis screen is negative. Does the patient have a suspected source of infection? No. Patient's initial sepsis screen is negative. Risk Assessment: Do you want to hurt yourself or someone else? Patient reports no desire to harm self or others. Onset of symptoms is unknown. 21:41 Method Of Arrival: Ambulatory ab2 21:41 Acuity: FREDA 3 ab2 Triage Assessment: 21:46 General: Appears in no apparent distress. uncomfortable, Behavior is calm, cooperative, ab2 appropriate for age. Pain: Complains of pain in back, abdomen and pelvis. : Reports vaginal bleeding that is with clots, heavy flow. 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 - Social history:: Smoking status: Patient reports the use of cigarette tobacco products, smokes one-half pack cigarettes per day. Screenin:22 Abuse screen: Denies threats or abuse. Denies injuries from another. Nutritional kd3 screening: No deficits noted. Tuberculosis screening: No symptoms or risk factors identified. Fall Risk None identified. Assessment: 22:21 General: Appears in no apparent distress. Behavior is calm, cooperative, appropriate kd3 for age. Pain: Complains of pain in pelvis and abdomen and back. Respiratory: Airway is patent Trachea midline Respiratory effort is even, unlabored. : Genitalia appear normal. Vital Signs: 21:41 BP 142 / 96; Pulse 88; Resp 16; Temp 97.2(TE); Pulse Ox 98% on R/A; Weight 74.84 kg; ab2 Height 5 ft. 4 in. (162.56 cm); Pain 5/10; 22:21 BP 117 / 76; Pulse 84; Resp 16; Pulse Ox 98% on R/A; kd3 21:41 Body Mass Index 28.32 (74.84 kg, 162.56 cm) ab2 ED Course: 21:27 Patient arrived in ED. ja2 21:45 Triage completed. ab2 21:46 Arm band placed on left wrist. ab2 22:03 Praneeth Underwood PA is PHCP. jr8 22:03 Raúl Cervantes MD is Attending Physician. jr8 22:20 Mirta De La Rosa, ARELI is Primary Nurse. kd3 22:23 Patient has correct armband on for positive identification. Placed in gown. kd3 23:39 US Transvaginal Study (Probe) In Process Unspecified. EDMS 23:45 Fariba King MD is Referral Physician. jr8 07/21 00:43 No provider procedures requiring assistance completed. IV discontinued. kd3 Administered Medications: No medications were administered Outcome: 07/20 23:47 Discharge ordered by . jr8 07/21 00:43 Discharged to home ambulatory. kd3 Condition: stable Discharge instructions given to patient, Instructed on discharge instructions, follow up and referral plans. Demonstrated understanding of instructions, follow-up care. 00:44 Patient left the ED. kd3 Signatures: Dispatcher [employer] EDMT Praneeth Underwood PA PA jr8 Laura Yusuf Kyli, RN RN kd3 Felipe Horan2 Corrections: (The following items were deleted from the chart) 07/20 22:24 22:21 BP 177 / 76; Pulse 84bpm; Resp 16bpm; Pulse Ox 98% RA; kd3 kd3
--- NOTE | 2021-07-20 23:48 | EDPHYS ---
Physician Documentation [facility] Name: Debra Elizondo Age: 35 yrs Sex: Female : 1985 Arrival Date: 07/20/2021 Time: 21:27 Bed 20 Private MD: ED Physician Raúl Cervantes HPI: 07/20 23:38 This 35 yrs old Female presents to ER via Ambulatory with complaints of Vaginal jr8 Bleeding, Low Back Pain. 23:38 The patient has not experienced similar symptoms in the past. The patient has not jr8 recently seen a physician. This is a 35-year-old female that presented to the emergency room with complaints of increased vaginal bleeding and sensation of protruding anatomy to the vaginal vault. Patient stated that her menstrual cycle has been heavier than normal and when she tried to insert a tampon the other day felt that she was having resistance that she had never felt before. Did a digital exam on herself and felt that something was protruding downward. Came to the emergency room for further evaluation at that time.. 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 - Social history:: Smoking status: Patient reports the use of cigarette tobacco products, smokes one-half pack cigarettes per day. ROS: 23:38 Eyes: Negative for injury, pain, redness, and discharge, ENT: Negative for injury, jr8 pain, and discharge, Neck: Negative for injury, pain, and swelling, Cardiovascular: Negative for chest pain, palpitations, and edema, Respiratory: Negative for shortness of breath, cough, wheezing, and pleuritic chest pain, Abdomen/GI: Negative for abdominal pain, nausea, vomiting, diarrhea, and constipation, Back: Negative for injury and pain, MS/Extremity: Negative for injury and deformity, Skin: Negative for injury, rash, and discoloration, Neuro: Negative for headache, weakness, numbness, tingling, and seizure. 23:38 : Positive for vaginal bleeding. Exam: 23:38 Constitutional: This is a well developed, well nourished patient who is awake, alert, jr8 and in no acute distress. Cardiovascular: Regular rate and rhythm with a normal S1 and S2. No gallops, murmurs, or rubs. Normal PMI, no JVD. No pulse deficits. Respiratory: Lungs have equal breath sounds bilaterally, clear to auscultation and percussion. No rales, rhonchi or wheezes noted. No increased work of breathing, no retractions or nasal flaring. Abdomen/GI: Soft, non-tender, with normal bowel sounds. No distension or tympany. No guarding or rebound. No evidence of tenderness throughout. Back: No spinal tenderness. No costovertebral tenderness. Full range of motion. Skin: Warm, dry with normal turgor. Normal color with no rashes, no lesions, and no evidence of cellulitis. MS/ Extremity: Pulses equal, no cyanosis. Neurovascular intact. Full, normal range of motion. Neuro: Awake and alert, GCS 15, oriented to person, place, time, and situation. Cranial nerves II-XII grossly intact. Motor strength 5/5 in all extremities. Sensory grossly intact. 23:38 : Pelvic Exam: External exam: is normal, Speculum exam: scant bleeding, os that is closed, bimanual exam reveals no cervical motion tenderness, no protrusion of bladder or cervix noted , the nurse was present for the exam. Vital Signs: 21:41 BP 142 / 96; Pulse 88; Resp 16; Temp 97.2(TE); Pulse Ox 98% on R/A; Weight 74.84 kg; ab2 Height 5 ft. 4 in. (162.56 cm); Pain 5/10; 22:21 BP 117 / 76; Pulse 84; Resp 16; Pulse Ox 98% on R/A; kd3 21:41 Body Mass Index 28.32 (74.84 kg, 162.56 cm) ab2 MDM: 22:03 Patient medically screened. [facility] 23:38 Data reviewed: vital signs, nurses notes, lab test result(s), radiologic studies, jr8 ultrasound. Data interpreted: Pulse oximetry: on room air is 98 %. Interpretation: normal. Counseling: I had a detailed discussion with the patient and/or guardian regarding: the historical points, exam findings, and any diagnostic results supporting the discharge/admit diagnosis, lab results, radiology results, the need for outpatient follow up, an OB/Gyne specialist, to return to the emergency department if symptoms worsen or persist or if there are any questions or concerns that arise at home. 23:47 ED course: Discussed with patient that she only has scant vaginal bleeding at this jr8 time. Would not put her on any control to help cydney vaginal bleeding at this time. Also discussed with her that there was no direct visualization or feeling of a protruding bladder, vaginal vault or cervix or rectum into the vaginal canal. Would recommend further evaluation by cancellation clerk which she has been referred to. If she were to acutely get worse come back for further evaluation. Patient good plan at this time.. 07/20 22:08 Order name: Urine Dipstick-Ancillary; Complete Time: 22:20 EDMS 07/20 22:10 Order name: Urine --Ancillary (enter results); Complete Time: 22:56 mw2 07/20 22:04 Order name: Pelvic Exam Setup; Complete Time: 22:20 jr8 07/20 22:10 Order name: Urine Dipstick-Ancillary (obtain specimen); Complete Time: 22:10 mw2 07/20 22:10 Order name: Urine Test (obtain specimen); Complete Time: 22:10 mw2 07/20 22:19 Order name: US Transvaginal Study (Probe) jr8 Administered Medications: No medications were administered Disposition: 07/21 07:11 Co-signature as Attending Physician, Raúl Cervantes MD I agree with the assessment and trisha plan of care. Disposition Summary: 07/20/21 23:47 Discharge Ordered Location: Home jr8 Problem: new jr8 Symptoms: have improved jr8 Condition: Stable jr8 Diagnosis - Abnormal uterine and vaginal bleeding, unspecified jr8 Followup: jr8 - With: Fariba King MD - When: 5 - 6 days - Reason: Recheck today's complaints, Continuance of care, Re-evaluation by your physician Discharge Instructions: - Discharge Summary Sheet jr8 - Abnormal Uterine Bleeding jr8 Forms: - Medication Reconciliation Form jr8 - Thank You Letter jr8 - Antibiotic Education jr8 - Prescription Opioid Use jr8 Signatures: Dispatcher [employer] Raúl Spence MD MD cha Roszak, Josh, PA PA jr8 Cassie Arellano mw2 Mirta De La Rosa, ARELI RN kd3 Felipe Horan 2
[2021-07-21 02:59] VITALS: TEMP 97.2; O2SAT 98
[2021-07-21 03:04] VITALS: BP 117/76
--- NOTE | 2021-07-21 13:47 | RAD REPORT ---
EXAM DESCRIPTION: Transvaginal Study Probe RadLex: US PELVIS TRANSVAGINAL CLINICAL HISTORY: Pelvic pain. COMPARISON: None. TECHNIQUE: Real-time grayscale and color Doppler images of the pelvis were obtained utilizing transv aginal technique. FINDINGS: Uterus: 4.1 x 5.6 x 7.5 cm. Endometrium measures 0.6 cm in thickness. Unremarkable appea maribeth of the cervix. Right ovary: 3 x 3.3 x 2 cm (volume 10.3 mL). Normal arterial flow. No concerning lesions. Left ovary: 2.9 x 2 x 2 cm (volume 6.1 mL). Normal arterial flow. No concerning lesions. Left ovari an dominant follicle measures 1.7 cm (No follow-up imaging is recommended. Reference: Radiology 2019 Nov;293(2):[id number]). Cul-de-sac: No free fluid identified. IMPRESSION: Normal pelvic ultrasound. Electronically signed by: Prabha Magana MD 07/20/2021 11:59 PM CDT Due to temporary technical issues with the PACS/Fluency reporting system, reports are being signed by the in house radiologist without review as a courtesy to ensure prompt reporting. The interpreting r adiologist is fully responsible for the content of the report.
== END 2021-07-21 00:44 | disposition home or self-care (01) ==
LOC: ER 21:22
DX: N93.9 Abnormal uterine and vaginal bleeding, unspecified (principal); M54.50 Low back pain, unspecified; F17.210 Nicotine dependence, cigarettes, uncomplicated
CPT/HCPCS: 76830; 81003; 81025; 99283

== ENCOUNTER 2021-11-26 16:35 | Emergency (ER) | payer BC ==
[2021-11-26 17:17] LABS: Urine Blood 3+ (Negative); Urine Glucose Negative (Negative); Urine Protein Negative (Negative); Urine pH 5.5 (5.0-7.0)
[2021-11-26 18:21] LABS: Absolute Lymphocytes (CBC) 2.8 K/uL (0.7-4.9); Hematocrit 37.5 % (36.0-45.0); Lymphocytes % 22.8 % (15.3-44.8); MPV 8.8 fL (7.6-11.3); RBC Red Blood Cell Count 4.08 M/uL (3.86-4.86)
--- NOTE | 2021-11-26 18:40 | RAD REPORT ---
EXAM DESCRIPTION: US - Transvaginal OB - 11/26/2021 5:48 pm CLINICAL HISTORY: Abd cramping, COMPARISON: No comparisons FINDINGS: A single gestational sac is seen within the uterus. The shape of the sac is within normal limits for gestational age. Within the sac is a single pole with crown-rump length of 3.6 cm, c orrelating to estimated gestational age of 10 weeks 2 days. Estimated date of delivery is 06/22/2022. Heart rate is 164 BPM. The placenta is not yet developed due to early gestational age. The maternal adnexa and ovaries are within normal limits. Normal Doppler blood flow was demonstrated to both ovaries. IMPRESSION: Single live early intrauterine gestation with estimated gestational age of 10 weeks and 2 days, DEMARIO 06/22/2022.
[2021-11-26 19:02] LABS: Potassium 3.4 mmol/L (3.5-5.1)
--- NOTE | 2021-11-26 19:09 | ER ---
Nurse's Notes [facility] Name: Debra Elizondo Age: 36 yrs Sex: Female : 1985 Arrival Date: 11/26/2021 Time: 16:37 Bed DIS5 Private MD: Diagnosis: Threatened Presentation: 11/26 16:58 Chief complaint: Patient states: is approx 9 weeks and has been spotting and iw cramping all day today. Coronavirus screen: At this time, the client does not indicate any symptoms associated with coronavirus-19. Ebola Screen: Patient negative for fever greater than or equal to 101.5 degrees Fahrenheit, and additional compatible Ebola Virus Disease symptoms Patient denies exposure to infectious person. Patient denies travel to an Ebola-affected area in the 21 days before illness onset. No symptoms or risks identified at this time. Initial Sepsis Screen: Does the patient meet any 2 criteria? No. Patient's initial sepsis screen is negative. Does the patient have a suspected source of infection? No. Patient's initial sepsis screen is negative. Risk Assessment: Do you want to hurt yourself or someone else? Patient reports no desire to harm self or others. Onset of symptoms was November 26, 2021. 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 rg4 16:50 Shelby Anthony FNP-C is PHCP. kb 16:50 Raúl Cervantes MD is Attending Physician. kb 16:59 Triage completed. iw 16:59 Arm band placed on. iw 17:50 US Transvaginal Ob In Process Unspecified. EDMS 18:04 Karla Caro, ARELI is Primary Nurse. iw 18:21 Inserted saline lock: 20 gauge in right antecubital area, using aseptic technique. mb7 Blood collected. 18:24 Quantitative Hcg Sent. mb7 18:24 Abo/rh Typing Sent. mb7 18:24 Basic Metabolic Panel Sent. mb7 19:04 Primary Nurse role handed off by Karla Caro RN 19:04 Urine Microscopic Only Sent. mb7 19:14 Karla Caro, RN is Primary Nurse. iw Administered Medications: No medications were administered Outcome: 19:08 Discharge ordered by . kb 19:14 Patient left the ED. iw Signatures: Dispatcher [employer] EDMS Shelby Anthony, HEAD OF ENGLISH-C HEAD OF ENGLISH-Ckb Karla Caro, RN RN Kymberly Godinez rg4 Senait Polanco Mary mb7 Corrections: (The following items were deleted from the chart) 16:59 16:58 Pulse 81bpm; Resp 16bpm; Pulse Ox 100% RA; Temp 97.4F; iw iw
--- NOTE | 2021-11-26 19:09 | EDPHYS ---
Physician Documentation [facility] Name: Debra Elizondo Age: 36 yrs Sex: Female : 1985 Arrival Date: 11/26/2021 Time: 16:37 Bed DIS5 Private MD: OCTAVIO Physician Raúl Cervantes HPI: 11/26 17:53 This 36 yrs old Female presents to ER via Ambulatory with complaints of Vaginal kb Bleeding, + Preg <12wks. 17:53 The patient presents to the emergency department with abdominal pain, of the right kb lower quadrant and left lower quadrant, that started this morning, described as crampy, vaginal bleeding, described as spotting. The estimated gestational age is 9 weeks. course: care: none, Leakage of Fluid: none appreciated, Ultrasound: the patient has not had an ultrasound, Risk/complications: no obvious risks or complications are appreciated. Previous pregnancies: in previous pregnancies patient has had. Associated signs and symptoms: Pertinent positives: abdominal pain, dysuria, vaginal bleeding. The patient has not experienced similar symptoms in the past. The patient has not recently seen a physician. 18:20 Patient reports lower abdominal cramping and spotting that began this morning. Reports kb she is 9 weeks . Also reports burning with urination.. 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 kb 17:53 Abdomen/GI: Positive for abdominal cramps, Negative for abdominal pain, nausea, vomiting, and diarrhea. 17:53 : Positive for burning with urination, vaginal bleeding. 17:53 All other systems are negative. kb Exam: 17:53 Constitutional: This is a well developed, well nourished patient who is awake, alert, kb and in no acute distress. Head/Face: Normocephalic, atraumatic. ENT: Moist Mucous membranes Cardiovascular: Regular rate and rhythm with a normal S1 and S2. No gallops, murmurs, or rubs. No pulse deficits. Respiratory: Respirations even and unlabored. No increased work of breathing. Talking in full sentences Skin: Warm, dry with normal turgor. Normal color. MS/ Extremity: Pulses equal, no cyanosis. Neurovascular intact. Full, normal range of motion. Neuro: Awake and alert, GCS 15, oriented to person, place, time, and situation. Moves all extremities. Normal gait. Psych: Awake, alert, with orientation to person, place and time. Behavior, mood, and affect are within normal limits. 17:53 Abdomen/GI: Inspection: abdomen appears normal, Bowel sounds: normal, Palpation: soft, in all quadrants, mild abdominal tenderness, in the right lower quadrant and left lower quadrant. Vital Signs: 16:58 BP 125 / 81; Pulse 81; Resp 16; Temp 97.4; Pulse Ox 100% on R/A; iw MDM: 17:02 Patient medically screened. kb 17:54 Data reviewed: vital signs, nurses notes. Data interpreted: Pulse oximetry: on room air kb is 100 %. Interpretation: normal. 19:07 Counseling: I had a detailed discussion with the patient and/or guardian regarding: the kb historical points, exam findings, and any diagnostic results supporting the discharge/admit diagnosis, lab results, radiology results, the need for outpatient follow up, an OB/Gyne specialist, to return to the emergency department if symptoms worsen or persist or if there are any questions or concerns that arise at home. 11/26 17:02 Order name: Abo/rh Typing; Complete Time: 19:01 kb 11/26 17:02 Order name: Basic Metabolic Panel; Complete Time: 19:07 kb 11/26 17:02 Order name: CBC with Diff; Complete Time: 18:25 kb 11/26 17:02 Order name: Quantitative Hcg; Complete Time: 19:07 kb 11/26 17:02 Order name: Urine Microscopic Only kb 11/26 17:18 Order name: Urine Dipstick-Ancillary; Complete Time: 17:21 EDMS 11/26 17:02 Order name: IV Saline Lock; Complete Time: 18:05 kb 11/26 17:02 Order name: Labs collected and sent; Complete Time: 18:24 kb 11/26 17:02 Order name: NPO; Complete Time: 18:05 kb 11/26 17:02 Order name: Urine Dipstick-Ancillary (obtain specimen); Complete Time: 18:05 kb 11/26 17:02 Order name: Urine Test (obtain specimen); Complete Time: 18:05 kb 11/26 17:02 Order name: US Transvaginal Ob; Complete Time: 18:41 kb 11/26 17:24 Order name: Urine --Ancillary (enter results) eb Administered Medications: No medications were administered Disposition Summary: 11/26/21 19:08 Discharge Ordered Location: Home kb Condition: Stable kb Diagnosis - Threatened kb Followup: kb - With: Emergency Department - When: As needed - Reason: Worsening of condition Followup: kb - With: Private Physician - When: 2 - 3 days - Reason: Recheck today's complaints, Continuance of care, Re-evaluation by your physician Discharge Instructions: - Discharge Summary Sheet kb - Threatened Miscarriage, [id number] kb - Vaginal Bleeding During , First Trimester, [id number] kb Forms: - Medication Reconciliation Form kb - Thank You Letter kb - Antibiotic Education kb - Prescription Opioid Use kb Signatures: Dispatcher [employer] Shelby Cobb, ELIGIBILITY TECHNICIAN-C ELIGIBILITY TECHNICIAN-Karla Gar, RN RN iw
[2021-11-26 19:37] VITALS: BP 125/81; TEMP 97.4; O2SAT 100
[2021-11-26 20:05] LABS: Urine Bacteria <20 /HPF (<20)
== END 2021-11-26 19:14 | disposition home or self-care (01) ==
LOC: ER 16:35
DX: O20.0 Threatened abortion (principal); Z3A.09 9 weeks gestation of pregnancy
CPT/HCPCS: 36415; 76817; 80048; 81003; 81015; 81025; 84702; 85025; 86900; 86901; 99283

== ENCOUNTER 2021-12-12 16:22 | Emergency (ER) | payer BC ==
--- OUTSIDE RECORDS SUMMARY | 2021-12-12 16:26 | XMS REPORT | Continuity of Care Document ---
:[address] [facility] t Address [address] [place] [address] Care Team Providers Name Role Phone PCP, PATIENT DOES NOT HAVE A Primary Care Physician Unavaila MAGDA Garcia Attending Clinician Unavailable Pob, Adc Lab Main Attending Clinician Unavailable Magda Barbosa MD Attending Clinician Physician, No Primary or Family Admitting Clinician Unavaila nakul Payers Payer Name Policy Type Policy Number Effective Date Expiration Date S ource Problems Condition Condition Condition Status Onset Resolution Last Treating Co mments Source Name Details Category Date Date Treatment Clinician Date Fatigue, Fatigue, Disease Active 2016-05 Unive rs unspecifie unspecifie 0-23 it y of d type d type 00:00: [place] 00 Medical Branch Generalize Generalize Disease Active U nivers d anxiety d anxiety 9-16 ity of disorder disorder 00:00: [place] 00 Medical Branch Anxiety in Anxiety in Disease Active U nivers 9-16 ity of in first in first 00:00: [place] trimester, trimester, 00 Me dical antepartum antepartum Br anch 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:00: [place]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) 00 Medical infection infection Bran ch Smoker Smoker Disease Active Univers 8-03 ity of 00:00: [place] 00 [facility] Allergies, Adverse Reactions, Alerts Allergy Allergy Status Severity Reaction(s) Onset Inactive Treating Comm ents Source Name Type Date Date Clinician No Known DA Active U [facility] 3[facility]15 [place] [facility] No Known DA Active U [facility] 3-15 [place] 00:[facility]: d 00 [facility] NO KNOWN Drug Active Univers ALLERGIE Class ity of S [facility] Social History Social Habit Start Date Stop Date Quantity Comments Source ASSERTION 2021-10-02 University 00:00:00 [facility] Exposure to 2021-11-26 2021-12-06 Not sure [facility] SARS-CoV-2 (event) 00:00:00 11:01:00 [facility] Cigarettes smoked 2021-11-08 2021-11-08 Univers ity of current (pack per 00:00:00 00:00:00 ) - Reported [place] Cigarette 2021-11-08 2021-11-08 University of pack-years 00:00:00 00:00:00 [facility] Tobacco use and 2021-11-08 2021-11-08 Smokeless Universit y of exposure 00:00:00 00:00:00 tobacco [facility] intake 2021-11-08 2021-11-08 Ex-drinker [facility] 00:00:00 00:00:00 (finding) [facility] History of tobacco 2021-10-17 Cigarette Smoker University of use 00:00:00 [facility] Sex [birth year] At [birth year] Universit y of 00:00:00 00:00:00 [facility] Smoking Status Start Date Stop Date Source Ex-smoker 2021-11-08 00:00:00 2021-11-08 00:00:00 Universi ty [facility] Medications Ordered Filled Start Stop Current Ordering Indication Dosage Frequency Signature Comments Components Source Medication Medication Date Date Medication? Clinician (SIG) Name Name valACYclovi Yes Valtrex Uni vers r (VALTREX) 7-11 500 mg ity of 500 mg 10:04: tablet [place] tablet 02 Take 1 Medical tablet Branch every day by oral route. valACYclovi Yes Valtrex Uni vers r (VALTREX) 7-11 500 mg ity of 500 mg 10:04: tablet [place] tablet 02 Take 1 Medical tablet Branch every day by oral route. valACYclovi Yes Valtrex Uni vers r (VALTREX) 7-11 500 mg ity of 500 mg 10:04: tablet [place] tablet 02 Take 1 Medical tablet Branch every day by oral route. valACYclovi Yes Valtrex Uni vers r (VALTREX) 7-11 500 mg ity of 500 mg 10:04: tablet [place] tablet 02 Take 1 Medical tablet Branch every day by oral route. valACYclovi Yes Valtrex Uni vers r (VALTREX) 7-11 500 mg ity of 500 mg 10:04: tablet [place] tablet 02 Take 1 Medical tablet Branch every day by oral route. valACYclovi Yes Valtrex Uni vers r (VALTREX) 7-11 500 mg ity of 500 mg 10:04: tablet [place] tablet 02 Take 1 Medical tablet Branch every day by oral route. pyridoxine, Yes [id number] 25mg Take 1 Univers VITAMIN 7-11 tablet by ity of B-6, 25 mg 00:00: mouth in [place] as tablet 00 the Medical morning Branch and 1 tablet at noon and 1 tablet in the evening. doxylamine 0 Yes [id number] 25mg Take 1 U nivers 25 mg 7-11 tablet by ity of tablet 00:00: mouth at [place] 00 bedtime. Medical Branch pyridoxine, 0 Yes [id number] 25mg Take 1 Univers VITAMIN 7-11 tablet by ity of B-6, 25 mg 00:00: mouth in [place] as tablet 00 the Medical morning Branch and 1 tablet at noon and 1 tablet in the evening. doxylamine 0 Yes [id number] 25mg Take 1 U nivers 25 mg 7-11 tablet by ity of tablet 00:00: mouth at [place] 00 bedtime. Medical Branch pyridoxine, 0 Yes [id number] 25mg Take 1 Univers VITAMIN 7-11 tablet by ity of B-6, 25 mg 00:00: mouth in [place] tablet 00 the Medical morning Branch and 1 tablet at noon and 1 tablet in the evening. doxylamine 2022-0 Yes [id number] 25mg Take 1 U nivers 25 mg 7-11 tablet by ity of tablet 00:00: mouth at [place] 00 bedtime. Medical Branch pyridoxine, Yes [id number] 25mg Take 1 Univers VITAMIN 7-11 tablet by ity of B-6, 25 mg 00:00: mouth in [place] tablet 00 the Medical morning Branch and 1 tablet at noon and 1 tablet in the evening. doxylamine Yes [id number] 25mg Take 1 U nivers 25 mg 7-11 tablet by ity of tablet 00:00: mouth at [place] 00 bedtime. Medical Branch pyridoxine, Yes [id number] 25mg Take 1 Univers VITAMIN 7-11 tablet by ity of B-6, 25 mg 00:00: mouth in [place] tablet 00 the Medical morning Branch and 1 tablet at noon and 1 tablet in the evening. doxylamine Yes [id number] 25mg Take 1 U nivers 25 mg 7-11 tablet by ity of tablet 00:00: mouth at [place] 00 bedtime. Medical Branch pyridoxine, Yes [id number] 25mg Take 1 Univers VITAMIN 7-11 tablet by ity of B-6, 25 mg 00:00: mouth in [place] tablet 00 the Medical morning Branch and 1 tablet at noon and 1 tablet in the evening. doxylamine Yes [id number] 25mg Take 1 U nivers 25 mg 7-11 tablet by ity of tablet 00:00: mouth at [place] 00 bedtime. Medical Branch valACYclovi 0 2021- Yes [id number] 500mg Take 1 Univers r (VALTREX) 7-11 11-19 tablet by it y of 500 mg 00:00: 04:59 mouth in [place] tablet 00 :00 the Medical morning Branch and 1 tablet in the evening. Do all this for 10 days. valACYclovi 0 2021- Yes [id number] 500mg Take 1 Univers r (VALTREX) 7-11 - tablet by it y of 500 mg 00:00: 04:59 mouth in [place] tablet 00 :00 the Medical morning Branch and 1 tablet in the evening. Do all this for 10 days. Yes Take by Univer s vit,loreto 10-20 mouth. ity of 74/iron/fol 11:34: [place] ic 19 Medical ( Branch VITAMIN 1+1 ORAL) Yes Take by Univer s vit,olreto 6-22 mouth. ity of 74/iron/fol 11:34: [place] ic 19 Medical ( Branch VITAMIN 1+1 ORAL) Yes Take by Univer s vit,loreto 6-22 mouth. ity of 74/iron/fol 11:34: [place] ic 19 Medical ( Branch VITAMIN 1+1 ORAL) Yes Take by Univer s vit,loreto 6-22 mouth. ity of 74/iron/fol 11:34: [place] ic 19 Medical ( Branch VITAMIN 1+1 ORAL) Yes Take by Univer s vit,loreto 6-22 mouth. ity of 74/iron/fol 11:34: [place] ic 19 Medical ( Branch VITAMIN 1+1 ORAL) Yes Take by Univer s vit,loreto 6-22 mouth. ity of 74/iron/fol 11:34: [place] ic 19 Medical ( Branch VITAMIN 1+1 ORAL) Immunizations Ordered Filled Immunization Date Status Comments [facility] e Immunization Name Name TDAP 2013-01-14 Completed University of 00:00:00 [facility] TDAP 2013-01-14 Completed University of 00:00:00 [facility] TDAP 2013-01-14 Completed University of 00:00:00 [facility] TDAP 2013-01-14 Completed University of 00:00:00 [facility] TDAP 2013-01-14 Completed University of 00:00:00 [facility] TDAP 2013-01-14 Completed University of 00:00:00 [facility] HPV 2011-01-25 Completed University of 00:00:00 [facility] HPV 2011-01-25 Completed University of 00:00:00 [facility] Branch HPV 2011-01-25 Completed University of 00:00:00 [facility] HPV 2011-01-25 Completed University of 00:00:00 [facility] HPV 2011-01-25 Completed University of 00:00:00 [facility] HPV 2011-01-25 Completed University of 00:00:00 [facility] Influenza Virus 2010-04-28 Completed Universit y of Vaccine 00:00:00 [facility] Rubella 2010-04-28 Completed University of 00:00:00 [facility] Varicella 2010-04-28 Completed University of (varivax)(chicken 00:00:00 [place] M edical pox) Branch Influenza Virus 2010-04-28 Completed Universit y of Vaccine 00:00:00 [facility] Rubella 2010-04-28 Completed University of 00:00:00 [facility] Varicella 2010-04-28 Completed University of (varivax)(chicken 00:00:00 [place] M edical pox) Branch Influenza Virus 2010-04-28 Completed Universit y of Vaccine 00:00:00 [facility] Rubella 2010-04-28 Completed University of 00:00:00 [facility] Varicella 2010-04-28 Completed University of (varivax)(chicken 00:00:00 [place] M edical pox) [place] Influenza Virus 2010-04-28 Completed Universit y of Vaccine 00:00:00 [facility] Rubella 2010-04-28 Completed University of 00:00:00 [facility] Varicella 2010-04-28 Completed University of (varivax)(chicken 00:00:00 [place] M edical pox) Branch Influenza Virus 2010-04-28 Completed Universit y of Vaccine 00:00:00 [facility] Rubella 2010-04-28 Completed University of 00:00:00 [facility] Varicella 2010-04-28 Completed University of (varivax)(chicken 00:00:00 [facility] edical pox) Branch Influenza Virus 2010-04-28 Completed Universit y of Vaccine 00:00:00 [facility] Rubella 2010-04-28 Completed University of 00:00:00 [facility] Varicella 2010-04-28 Completed University of (varivax)(chicken 00:00:00 [place] M edical pox) Branch Td 2003-01-03 Completed University of 00:00:00 [facility] Td 2003-01-03 Completed University of 00:00:00 [facility] Td 2003-01-03 Completed University of 00:00:00 [facility] Td 2003-01-03 Completed University of 00:00:00 [facility] Td 2003-01-03 Completed University of 00:00:00 [facility] Td 2003-01-03 Completed University of 00:00:00 [facility] Vital Signs Vital Name Observation Time Observation Value Comments Source Systolic blood 2021-12-06 16:35:00 125 mm[Hg] Univer sity of pressure [facility] Diastolic blood 2021-12-06 16:35:00 79 mm[Hg] Unive rsity of pressure [facility] Heart rate 2021-12-06 16:35:00 92 /min Universi ty of [facility] Body temperature 2021-12-06 16:35:00 36.72 [facility] Respiratory rate 2021-12-06 16:35:00 17 /min [facility] Body height 2021-12-06 16:35:00 162.6 cm Universi ty of [place] [facility] [place] Body weight 2021-12-06 16:35:00 75.66 kg Universi ty of [facility] Branch BMI 2021-12-06 16:35:00 28.63 kg/m2 Universi ty of [facility] Body height 2021-11-08 14:49:00 162.6 cm Universi ty of [place] [facility] [place] Body weight 2021-11-08 14:49:00 73.936 kg Universi ty of [facility] BMI 2021-11-08 14:49:00 27.98 kg/m2 Universi ty of [facility] Oxygen saturation in 2021-11-08 14:49:00 99 /min [facility] Arterial blood by [facility] Pulse oximetry Branch Systolic blood 2021-11-08 14:49:00 118 mm[Hg] Univer sity of [facility] Diastolic blood 2021-11-08 14:49:00 83 mm[Hg] [facility] Heart rate 2021-11-08 14:49:00 80 /min Universi ty of [facility] Respiratory rate 2021-11-08 14:49:00 18 /min [facility] Procedures Procedure Date / Time Performed Performing Clinician Sourc e CBC WITH DIFF 2021-12-06 19:19:00 Magda Barbosa o f [facility] POCT URINALYSIS W/O 2021-12-06 16:36:00 Magda Barbosa [facility] of [place] SPECIFIC GRAVITY [facility] <14 WEEKS US 2021-11-08 16:14:25 Magda Barbosa [facility] POCT URINALYSIS 2021-11-08 14:59:00 Magda Barbosa o f [facility] Encounters Start End Encounter Admission Attending Care Care Encounter Source Date/Time Date/Time Type Type Clinicians Facility Department ID 2020-07-13 Inpatient [facility] CL [id number] [facility] 12:37:00 [id number] [facility] 2022-01-04 2022-01-04 Outpatient R MAGDA BARBOSA [facility] [id number] Univers 11:15:00 11:15:00 [id number] ity [facility] 2021-12-06 2021-12-06 Oracle Developer Eliot Adamson Lab Main [facility] 1.2.8 40.114 [id number] Univers 13:15:00 13:30:00 Visit Magda Barbosa [id number] ity of [place] 4[place]2.[place] [id number] [address] 2021-12-06 2021-12-06 Outpatient R [facility] [id number] Univers 12:30:00 12:30:00 [id number] ity of [facility] 2021-12-06 2021-12-06 Outpatient R MAGDA BARBOSA [facility] [id number] Univers 11:15:00 12:05:35 ity [facility] 2021-12-06 2021-12-06 Routine Magda Barbosa [facility] [place] [id number] Univers 11:15:00 12:05:35 [place] [id number] i ty of Visit [place]2.[place] [id number] [address] 2021-11-26 2021-11-26 Outpatient R MAGDA BARBOSA [facility] [id number] Univers 15:00:00 15:00:00 [id number] ity [facility] 2021-11-26 2021-11-26 Telephone Magda Barbosa [facility] [place] 1.2.840.11 [id number] Univers 00:00:00 00:00:00 [place] [id number] it y of [place] [id number] [address] 2021-11-262021-11-26 Telephone Magda Barbosa 1.2.840.114 [id number] Univers 00:00:00 00:00:00 [place] [id number] i ty of [facility] 4.2.[place].2.[place] [id number] Vt dical [address] 2021-11-15 2021-11-15 Telephone Magda Barbosa 1.2.840.11 [id number] Univers 00:00:00 00:00:00 [place] [id number] it y of [place] [id number] [address] 2021-11-08 2021-11-08 Routine Magda Barbosa 1.2.840.114 [id number] Univers 09:30:00 10:17:52 [place] [id number] i ty of Visit [place] [id number] [address] Results Test Description Test Time Test Comments Results Result Comments Source CBC WITH DIFF 2021-12-06 19:44:21 Test Item Value Reference Range Interpretation Comme nts WBC (test code = 6690-2) See_Comment [A utomated message] The system which ge nerated this result transmit eduarda reference range: 4.30 - 1 1.10 10*3/?L. The reference r tra was not used to interpr et this result as normal/abnor mal. RBC (test code = 789-8) See_Comment [Au tomated message] The system which ge nerated this result transmit eduarda reference range: 3.93 - 5 .25 10*6/?L. The reference r tra was not used to interpr et this result as normal/abnor mal. HGB (test code = 718-7) 12.5 g/dL 11.6-15 HCT (test code = 4544-3) 38.5 % 35.7-45.2 MCV (test code = 787-2) 94.8 fL 80.6-95.5 MCH (test code = 785-6) 30.8 pg 25.9-32.8 MCHC (test code = 786-4) 32.5 g/dL 31.6-35.1 RDW-SD (test code = 84541-4) 41.6 fL 39-49.9 RDW-CV (test code = 788-0) 11.9 % 12-15.5 L PLT (test code = 777-3) See_Comment [Au tomated message] The system which ge nerated this result transmit eduarda reference range: 166 - 35 8 10*3/?L. The reference range was not used to interpret th is result as normal/abnormal . MPV (test code = 57604-0) 10.6 fL 9.5-12.9 NRBC/100 WBC (test code = See_Comment [ Automated message] The [id number]) system which ge nerated this result transmit eduarda reference range: 0.0 - 10 .0 /100 WBCs. The reference r tra was not used to interpr et this result as normal/abnor mal. NRBC x10^3 (test code = See_Comment [Au tomated message] The [id number]) system which ge nerated this result transmit eduarda reference range: 10*3/?L. The reference range was not u sed to interpret this result as normal/abnormal . GRAN MAT (NEUT) % (test code 71.4 % = 770-8) IMM GRAN % (test code = 1.10 % 1291999039) LYMPH % (test code = 736-9) 19.1 % MONO % (test code = 5905-5) 7.9 % EOS % (test code = 713-8) 0.1 % BASO % (test code = 706-2) 0.4 % GRAN MAT x10^3(ANC) (test 7.54 10*3/uL 1.88-7.09 H code = 6061250141) IMM GRAN x10^3 (test code = 0.12 10*3/uL 0-0.06 H [id number]) LYMPH x10^3 (test code = 2.02 10*3/uL 1.32-3.29 731-0) MONO x10^3 (test code = 0.84 10*3/uL 0.33-0.92 742-7) EOS x10^3 (test code = 0.03-0.39 L 711-2) BASO x10^3 (test code = 0.04 10*3/uL 0.01-0.07 704-7) Lab Interpretation (test Abnormal code = 17539-3) [facility] URINALYSIS W/O SPECIFIC [id number] 16:36:00 Test Item Value Reference Range Interpretation Comments POCT PH U (test code = 3254) n/a 5-8 POCT U LEUK EST (test code = n/a Negative - Negative 3263) POCT U NIT (test code = 3262) n/a Negative - Negative POCT U PROT (test code = 3259) negative Negative - Negative POCT U GLU (test code = 3256) normal Negative - Negative POCT U KETONE (test code = 3258) n/a Negative - Negative POCT U BLD (test code = 3257) n/a Negative - Negative [facility] URINALYSIS W SPECIFIC [id number] 15:00:00 Test Item Value Reference Range Interpretation Comments POCT U SP GRAV (test code = N/A 1.005-1.025 3255) POCT PH U (test code = N/A 5-8 3254) POCT U LEUK EST (test code N/A Negative - Negative = 3263) POCT U NIT (test code = N/A Negative - Negative 3262) POCT U PROT (test code = Negtaive Negative - Negative 3259) POCT U GLU (test code = Negtaive Negative - Negative 3256) POCT U KETONE (test code = N/A Negative - Negative 3258) POCT U UROBILI (test code = N/A 0.2-1 3260) POCT U BILI (test code = N/A Negative - Negative 3261) POCT U BLD (test code = N/A Negative - Negative 3257) POCT U COLOR (test code = Light Yelllow 3266) POCT U APPEAR (test code = Clear 7) [facility]- XR CHEST 1 [id number] 13:34:00 [facility] 1985 Sex: F Name: MIKE GREGORIO [facility] : 1985 Age/S: 34 / F [id number] Unit #: [id number] Loc: [place] [address] Phys: Baldemar Diaz MD Acct: [id number] Dis Date: Status: REG ER PHONE #: [phone] Exam Date: 07/13/2020 1320 FAX #: Reason: CHEST PAIN EXAMS: CPT: [id number] XR CHEST 1 V 87244 Fluoro Time: DAP (Gy m2): Air Kerma (mGy): EXAM: - XR CHEST 1 V Location code:C3 HISTORY: Chest pain COMPARISON: None available time of interpretation. FINDINGS: Frontal view of the chest is submitted. Heart size and vascularity are within normal limits. The lungs are clear of focal consolidation. No effusion or evidence of pneumothorax.. No acute osseous pathology. IMPRESSION 1. No rad iographic evidence of acute cardiopulmonary process. at 1334 Reported and signed by: Suzette Iverson M.D. CC: Baldemar Diaz MD PAGE 1 Signed Report Name: MIKE GREGORIO [facility] : 1985 Age/S: 34/ F [id number] Unit #: [id number] Loc: [place] [address] Phys: Baldemar Diaz MD Acct:[id number] Dis Date: Status: REG ER PHONE #: [phone] Exam Date: 07/13/2020 1320 FAX #: Reason: CHEST PAIN EXAMS: CPT: [id number] XR CHEST 1 V 32077 Fluoro Time: DAP (Gy m2): Air Kerma (mGy): <Continued> Technologist: Bobo Pulliam RT(R)(CT) Trnflb Date/Time: 07/13/2020 (1869) [id number] Print D/T: S: 07/13/2020 (5190) PAGE 2 Signed Report
[2021-12-12 18:45] LABS: Absolute Lymphocytes (CBC) 2.5 K/uL (0.7-4.9); Hematocrit 38.6 % (36.0-45.0); Lymphocytes % 19.8 % (15.3-44.8); MPV 8.5 fL (7.6-11.3); RBC Red Blood Cell Count 4.24 M/uL (3.86-4.86)
[2021-12-12 18:50] LABS: Urine Blood Trace-intact (Negative); Urine Glucose Negative (Negative); Urine Protein Negative (Negative); Urine pH 5.5 (5.0-7.0)
[2021-12-12 19:11] LABS: Urine Bacteria <20 /HPF (<20); Urine RBC None Seen /HPF (None Seen)
[2021-12-12] MEDS ORDERED: NA CHLORIDE 0.9% 1,000 ML ONE (19:17)
[2021-12-12 19:19] LABS: ALT/SGPT 20 U/L (12-78); AST/SGOT 9 U/L (15-37); Albumin 3.5 g/dL (3.4-5.0); Alkaline Phosphatase 46 U/L (45-117); BUN Blood Urea Nitrogen 9 mg/dL (7-18); Bicarbonate 25 mmol/L (21-32); Bilirubin Total 0.2 mg/dL (0.2-1.0); Glomerular Filtration Rate 128 ml/min (=/>90); Glucose Level 89 mg/dL (74-106); HCG, Quantitative 41564 mIU/mL (1-3); Potassium 3.8 mmol/L (3.5-5.1); Protein, Total 7.8 g/dL (6.4-8.2); Sodium Level 136 mmol/L (136-145)
[2021-12-12 19:20] LABS: Bilirubin Direct < 0.1 mg/dL (0-0.2)
--- NOTE | 2021-12-12 20:51 | ER ---
Nurse's Notes [facility] Name: Debra Elizondo Age: 36 yrs Sex: Female : 1985 Arrival Date: 12/12/2021 Time: 16:24 Bed 15 Private MD: Diagnosis: Headache;Volume depletion, unspecified;12 weeks gestation of Presentation: 12/12 17:38 Chief complaint: Patient states: right-sided headache with photophobia and nausea x2 kb3 days. Coronavirus screen: Vaccine status: Patient reports being unvaccinated. Client denies travel out of the [place] in the last 14 days. At this time, the client does not indicate any symptoms associated with coronavirus-19. Ebola Screen: Patient negative for fever greater than or equal to 101.5 degrees Fahrenheit, and additional compatible Ebola Virus Disease symptoms Patient denies exposure to infectious person. Patient denies travel to an Ebola-affected area in the 21 days before illness onset. No symptoms or risks identified at this time. Initial Sepsis Screen: Does the patient meet any 2 criteria? No. Patient's initial sepsis screen is negative. Does the patient have a suspected source of infection? No. Patient's initial sepsis screen is negative. Risk Assessment: Do you want to hurt yourself or someone else? Patient reports no desire to harm self or others. Onset of symptoms was December 10, 2021 at 15:00. 17:38 Method Of Arrival: Ambulatory kb3 17:38 Acuity: FREDA 3 kb3 Triage Assessment: 17:40 General: Appears in no apparent distress. uncomfortable, Behavior is calm, cooperative. kb3 Pain: Complains of pain in head Pain does not radiate. Pain currently is 8 out of 10 on a pain scale. Quality of pain is described as aching, throbbing, Pain began 2-3 days ago. Is continuous. 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 Last tetanus immunization: unknown. - Social history:: Smoking status: Patient denies any tobacco usage or history of. Patient/guardian denies using alcohol, street drugs. Screenin:31 Abuse screen: Denies threats or abuse. Denies injuries from another. Nutritional hb screening: No deficits noted. Tuberculosis screening: No symptoms or risk factors identified. Fall Risk None identified. Assessment: 18:31 General: Appears in no apparent distress. uncomfortable, Behavior is cooperative, hb crying. Pain: Pain currently is 10 out of 10 on a pain scale. Neuro: Level of Consciousness is awake, alert, obeys commands, Oriented to person, place, time, situation, Reports headache. Cardiovascular: Patient's skin is warm and dry. Respiratory: Respiratory effort is even, unlabored, Respiratory pattern is regular, symmetrical. GI: No signs and/or symptoms were reported involving the gastrointestinal system. : No signs and/or symptoms were reported regarding the genitourinary system. EENT: No signs and/or symptoms were reported regarding the EENT system. Derm: Skin is pink, warm \T\ dry. Musculoskeletal: No signs and/or symptoms reported regarding the musculoskeletal system. 19:12 Reassessment: Patient appears in no apparent distress at this time. Patient and/or hb family updated on plan of care and expected duration. Pain level reassessed. Patient is alert, oriented x 3, equal unlabored respirations, skin warm/dry/pink. 21:00 Reassessment: Patient appears in no apparent distress at this time. Patient and/or hb family updated on plan of care and expected duration. Pain level reassessed. Patient is alert, oriented x 3, equal unlabored respirations, skin warm/dry/pink. Vital Signs: 17:38 BP 133 / 87; Pulse 78; Resp 20; Temp 97.8; Pulse Ox 100% ; Weight 75.3 kg; Height 5 ft. kb3 4 in. (162.56 cm); Pain 8/10; 21:21 BP 128 / 88; Pulse 76; Resp 15; Pulse Ox 99% on R/A; hb 17:38 Body Mass Index 28.49 (75.30 kg, 162.56 cm) kb3 ED Course: 16:24 Patient arrived in ED. rg4 16:48 Bety Barajas FNP-C is [facility]. snw 16:48 Raúl Cervantes MD is Attending Physician. snw 17:40 Triage completed. kb3 17:40 Arm band placed on left wrist. kb3 18:07 Sade Del Castillo, RN is Primary Nurse. hb 18:31 Patient has correct armband on for positive identification. hb 18:34 Initial lab(s) drawn, by me, sent to lab. Inserted saline lock: 20 gauge in right dh3 antecubital area, using aseptic technique. Blood collected. 18:38 Flu Sent. dh3 21:21 No provider procedures requiring assistance completed. IV discontinued, intact, hb bleeding controlled, No redness/swelling at site. Administered Medications: 19:12 Drug: NS 0.9% 1000 ml Route: IV; Rate: 1 bolus; Site: right antecubital; hb Medication: 18:31 VIS not applicable for this client. hb Outcome: 20:51 Discharge ordered by . snw 21:21 Discharged to home ambulatory. hb 21:21 Condition: stable 21:21 Discharge instructions given to patient, Instructed on discharge instructions, follow up and referral plans. medication usage, Demonstrated understanding of instructions, follow-up care, medications. 21:22 Patient left the ED. hb Signatures: Bety Barajas FNP-C DIVISION ORDER ANALYST-Csnw Sade Del Castillo, RN RN Kymberly Arias rg4 Andria Alvarez [facility] Belinda Whaley RN RN kb3
--- NOTE | 2021-12-12 20:51 | EDPHYS ---
Physician Documentation [facility] Name: Debra Elizondo Age: 36 yrs Sex: Female : 1985 Arrival Date: 12/12/2021 Time: 16:24 Bed 15 Private MD: OCTAVIO Physician Raúl Cervantes HPI: 12/12 18:27 This 36 yrs old Female presents to ER via Ambulatory with complaints of Flu Symptoms. snw 18:27 The patient complains of pain to the right eye and right yarsanism. The patient describes snw the headache as pounding. Onset: The symptoms/episode began/occurred last night, while watching a movie, pt states she lost right peripheral vision and then began seeing strobe lights and had headache necessitating sleep. Pt awoke and needed to take tylenol for improvement. Associated signs and symptoms: Pertinent positives: nausea, Photophobia visual field changes. The patient has not experienced similar symptoms in the past. It is unknown whether or not the patient has recently seen a physician. 12 weeks . CHAINER: 17:40 2, Full Term 1, Premature 0, 0, Living 1, LMP 09/12/2021, kb3 Verified, EDC 06/19/2022, Gestational age from LMP: 13 weeks 0 days Historical: - Allergies: 17:40 No Known Allergies; kb3 - Home Meds: 17:40 None [Active]; kb3 - PMHx: 17:40 GERD; kb3 - PSHx: 17:40 None; kb3 - Immunization history:: Adult Immunizations up to date, Client reports having NOT received the Covid vaccine. Last tetanus immunization: unknown. - Social history:: Smoking status: Patient denies any tobacco usage or history of. Patient/guardian denies using alcohol, street drugs. ROS: 18:24 Constitutional: Negative for fever, chills, and weight loss, ENT: Negative for injury, snw pain, and discharge, Neck: Negative for injury, pain, and swelling, Cardiovascular: Negative for chest pain, palpitations, and edema, Respiratory: Negative for shortness of breath, cough, wheezing, and pleuritic chest pain, Abdomen/GI: Negative for abdominal pain, nausea, vomiting, diarrhea, and constipation, Back: Negative for injury and pain, : Negative for injury, bleeding, discharge, and swelling, + 12 weeks MS/Extremity: Negative for injury and deformity, Skin: Negative for injury, rash, and discoloration, Neuro: Negative for weakness, numbness, tingling, and seizure, + headache Psych: Negative for depression, anxiety, suicide ideation, homicidal ideation, and hallucinations. 18:24 Eyes: Positive for blurry vision, visual disturbance, yesterday from right peripheral vision and then pt experienced LINO. Exam: 18:06 Constitutional: This is a well developed, well nourished patient who is awake, alert, snw and in no acute distress. Head/Face: Normocephalic, atraumatic. Eyes: Pupils equal round and reactive to light, extra-ocular motions intact. Lids and lashes normal. Conjunctiva and sclera are non-icteric and not injected. Cornea within normal limits. Periorbital areas with no swelling, redness, or edema. ENT: Nares patent. No nasal discharge, no septal abnormalities noted. Tympanic membranes are normal and external auditory canals are clear. Oropharynx with no redness, swelling, or masses, exudates, or evidence of obstruction, uvula midline. Mucous membranes moist. Neck: Trachea midline, no thyromegaly or masses palpated, and no cervical lymphadenopathy. Supple, full range of motion without nuchal rigidity, or vertebral point tenderness. No Meningismus. Chest/axilla: Normal chest wall appearance and motion. Nontender with no deformity. No lesions are appreciated. Cardiovascular: Regular rate and rhythm with a normal S1 and S2. No gallops, murmurs, or rubs. Normal PMI, no JVD. No pulse deficits. Respiratory: Lungs have equal breath sounds bilaterally, clear to auscultation and percussion. No rales, rhonchi or wheezes noted. No increased work of breathing, no retractions or nasal flaring. Abdomen/GI: Soft, non-tender, with normal bowel sounds. No distension or tympany. No guarding or rebound. No evidence of tenderness throughout. Back: No spinal tenderness. No costovertebral tenderness. Full range of motion. Skin: Warm, dry with normal turgor. Normal color with no rashes, no lesions, and no evidence of cellulitis. MS/ Extremity: Pulses equal, no cyanosis. Neurovascular intact. Full, normal range of motion. Neuro: Awake and alert, GCS 15, oriented to person, place, time, and situation. Cranial nerves II-XII grossly intact. Motor strength 5/5 in all extremities. Sensory grossly intact. Cerebellar exam normal. Normal gait. Psych: Awake, alert, with orientation to person, place and time. Behavior, mood, and affect are within normal limits. Vital Signs: 17:38 BP 133 / 87; Pulse 78; Resp 20; Temp 97.8; Pulse Ox 100% ; Weight 75.3 kg; Height 5 ft. kb3 4 in. (162.56 cm); Pain 8/10; 21:21 BP 128 / 88; Pulse 76; Resp 15; Pulse Ox 99% on R/A; hb 17:38 Body Mass Index 28.49 (75.30 kg, 162.56 cm) kb3 MDM: 17:59 Patient medically screened. trisha 20:21 Data reviewed: vital signs, nurses notes, lab test result(s). Data interpreted: Pulse snw oximetry: on room air is 100 %. Interpretation: normal. Counseling: I had a detailed discussion with the patient and/or guardian regarding: the historical points, exam findings, and any diagnostic results supporting the discharge/admit diagnosis, the presence of at least one elevated blood pressure reading (>120/80) during this emergency department visit, the need for outpatient follow up, to return to the emergency department if symptoms worsen or persist or if there are any questions or concerns that arise at home. Medication response: IVF. Response to treatment: the patient's symptoms have markedly improved after treatment, pain down from 8 to 4. Special discussion: I have referred the patient to see his PCP for further evaluation of high blood pressure. Based on the history and exam findings, there is no indication for further emergent testing or inpatient evaluation. I discussed with the patient/guardian the need to see the OB Gyne specialist for further evaluation of the symptoms. I discussed with the patient/guardian the need to see the primary care provider for further evaluation of the symptoms. 12/12 18:06 Order name: CBC with Diff; Complete Time: 19:00 snw 12/12 18:06 Order name: CMP; Complete Time: 19:28 snw 12/12 18:06 Order name: Urine Microscopic Only; Complete Time: 19:11 snw 12/12 18:06 Order name: HCG-Quantitative; Complete Time: 19:28 snw 12/12 18:06 Order name: SARS-COV-2 RT PCR (Document "Date of Onset" if Symptomatic); Complete Time: snw 19:48 12/12 18:06 Order name: LFT's; Complete Time: 19:28 snw 12/12 18:06 Order name: IV Saline Lock; Complete Time: 18:39 snw 12/12 18:06 Order name: Labs collected and sent; Complete Time: 18:39 snw 12/12 18:06 Order name: Urine Dipstick-Ancillary (obtain specimen); Complete Time: 19:08 snw 12/12 18:11 Order name: Strep; Complete Time: 19:10 ss 12/12 18:11 Order name: Flu; Complete Time: 19:04 ss 12/12 18:50 Order name: Urine Dipstick-Ancillary; Complete Time: 19:00 EDMS 12/12 19:13 Order name: Throat Culture EDMS Administered Medications: 19:12 Drug: NS 0.9% 1000 ml Route: IV; Rate: 1 bolus; Site: right antecubital; hb Disposition Summary: 12/12/21 20:51 Discharge Ordered Location: Home snw Condition: Stable snw Diagnosis - Headache snw - Volume depletion, unspecified snw - 12 weeks gestation of snw Followup: snw - With: Emergency Department - When: As needed - Reason: Worsening of condition Followup: snw - With: Private Physician - When: 1 - 2 days - Reason: Recheck today's complaints, Continuance of care, Re-evaluation by your physician Discharge Instructions: - Discharge Summary Sheet snw - Dehydration, Adult snw - General Headache Without Cause snw - Care snw - Rehydration, Adult snw Forms: - Medication Reconciliation Form snw - Thank You Letter snw - Antibiotic Education snw - Prescription Opioid Use snw Signatures: Dispatcher [employer] EDMS Raúl Cervantes MD MD cha Waters, Shelly, FNP-C WIRE COILER-Csnw Sade Del Castillo, RN RN Belinda Whaley RN RN kb3
[2021-12-12 23:40] VITALS: TEMP 97.8
[2021-12-12 23:42] VITALS: BP 128/88; O2SAT 99
== END 2021-12-12 21:22 | disposition home or self-care (01) ==
LOC: ER 16:22
DX: O99.281 Endocrine, nutritional and metabolic diseases complicating pregnancy, first trimester (principal); E86.9 Volume depletion, unspecified; O26.891 Other specified pregnancy related conditions, first trimester; Z3A.13 13 weeks gestation of pregnancy; Z20.822 Contact with and (suspected) exposure to COVID-19
CPT/HCPCS: 87070; 85025; 36415; 87081; 84702; 82248; 80053; 87804 ×2; U0003; J7030; 81003; 81015; 99283

== ENCOUNTER 2022-04-29 13:50 | Emergency (ER) | payer BC ==
--- OUTSIDE RECORDS SUMMARY | 2022-04-29 14:06 | XMS REPORT | Continuity of Care Document ---
:1985 Author Organization [facility] t Address [address] [place] [address] Care Team Providers Name Role Phone JUJU JOANNE Primary Care Physician Unavailable CAMILA JOY Attending Clinician Unavailable Camila Joy MD Attending Clinician Clinic, [facility] Neurology Resident Attending Clinician Unava ilable Pob, [facility] Main Attending Clinician Unavailable 2, [facility] Attending Clinician Unavailable Natacha Leo MD Attending Clinician Ultrasound, Ang-Mfm Attending Clinician Unavailable Balta Womack MD Attending Clinician [phone] BALTA WOMACK Attending Clinician Unavailable Annie Herrera PA-C Attending Clinician Magda Walton MD Attending Clinician ANNIE HERRERA Attending Clinician Unavailable Pro KELSEY Attending Clinician Unavailable Pro Beebe Attending Clinician MAGDA WALTON Attending Clinician Unavailable Doctor Unassigned, [place] Attending Clinician Unavailable CAMILA JOY Admitting Clinician Unavailable Physician, No Primary or Family Admitting Clinician Unavaila nakul Joy MD, Camila Prieto Admitting Clinician Payers Payer Name Policy Type Policy Number Effective Date Expiration Date Halina bhatt BCBS [facility] - [id number] 2020 00:00:00 OUT OF STATE Problems Condition Condition Condition Status Onset Resolution Last Treating Co mments Source Name Details Category Date Date Treatment Clinician Date Obesity Obesity Disease Active 2021-05 Univers (BMI (BMI 2-02 ity of 30-39.9) 30-39.9) 00:00: [address] High-risk High-risk Disease Active 2021-05 Uni vers , , 0-28 it y of second second 00:00: [place] trimester trimester 00 [facility] Multigravi Multigravi Disease Active 2021-05 U nivers da of da of 0-28 ity of advanced advanced 00:00: [place] maternal maternal 00 Medica l age in age in Branch second second trimester trimester 22 weeks 22 weeks Disease Active 2021-05 Unive rs gestation gestation 0-28 ity of of of 00:00: [place] 00 [facility] Depression Depression Disease Active U nivers affecting affecting 9-07 [place] 00 [facility] trimester, trimester, Br anch antepartum antepartum Fatigue, Fatigue, Disease Active 2016-05 Unive rs unspecifie unspecifie 0-23 it y of d type d type 00:00: [place] [facility] Anxiety Anxiety Disease Active Methodi 2 st 00:00: Hospita 00 l Generalize Generalize Disease Active M ethodi d anxiety d anxiety 2-10 st disorder disorder 00:00: Hospit a 00 l Herpes Herpes Disease Active Methodi simplex simplex 2 st virus virus 00:00: Hospita (HSV) (HSV) 00 l infection infection Irregular Irregular Disease Active Met hodi menstrual menstrual 2-10 st cycle cycle 00:00: Hospita 00 l Paresthesi Paresthesi Disease Active M ethodi a a 2-10 st 00:00: Hospita 00 l Generalize Generalize Disease Active U nivers d anxiety d anxiety 9-16 ity of disorder disorder 00:00: [address] Anxiety in Anxiety in Disease Active U nivers , , 9-16 it y of antepartum antepartum [place] , third 00 Medical trimester trimester Bran ch 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:00: [place]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) 00 Medical infection infection Bran ch Smoker Smoker Disease Active Univers 8-03 ity of 00:00: [address] [place] [address] Allergies, Adverse Reactions, Alerts Allergy Allergy Status Severity Reaction(s) Onset Inactive Treating Comm ents Source Name Type Date Date Clinician No Known DA Active [facility] [place] [facility] No Known DA Active [facility] [place] [facility] No Known Propensi Active Other (See [place] thodi Drug ty to Comments) 2-10 st Allergie adverse 00:00: Hospita s reaction 00 l s to drug NO KNOWN Drug Active Univers ALLERGIE Class ity of S [facility] Family History Family Member Diagnosis Comments Start Date Stop Date Source Natural father Anxiety disorder [facility] Natural father Depression [facility] Natural father Diabetes [facility] Natural mother Anxiety disorder [facility] Natural mother Depression [facility] Social History Social Habit Start Date Stop Date Quantity Comments Source ASSERTION 2021-10-02 University of 00:00:00 [facility] Exposure to 2022-04-05 2022-04-15 Not sure [facility] SARS-CoV-2 (event) 00:00:00 09:19:00 [facility] Cigarettes smoked 2021-11-08 2021-11-08 Univers ity of current (pack per 00:00:00 00:00:00 [facility] ) - Reported Branch Cigarette 2021-11-08 2021-11-08 University of pack-years 00:00:00 00:00:00 [facility] Tobacco use and 2021-11-08 2021-11-08 Smokeless Universit y of exposure 00:00:00 00:00:00 tobacco non-user [facility] dical Tina History of tobacco 2021-10-17 Cigarette Smoker University of use 00:00:00 [facility] Alcohol intake 2016-10-12 2016-10-12 Current drinker [facility] 00:00:00 00:00:00 of alcohol Hospital (finding) Tobacco Comment 2015-08-03 2015-08-03 The patient Jose Enrique sommers 00:00:00 00:00:00 started smoking Hospital at age 18 Alcohol Comment 2015-08-03 2015-08-03 Social Drinker [facility] 00:00:00 00:00:00 Hospital Sex Assigned At [birth year] [facility] 00:00:00 00:00:00 Hospital Smoking Status Start Date Stop Date Source Ex-smoker 2021-11-08 00:00:00 2021-11-08 00:00:00 [facility] Smokes tobacco daily 2016-10-12 00:00:00 [facility] Medications Ordered Filled Start Stop Current Ordering Indication Dosage Frequency Signature Comments Components Source Medication Medication Date Date Medication? Clinician (SIG) Name Name ALPRAZolam 2021-05- No 1 tablet Un dolores 0.25 mg 2-30 12-30 ity of tablet 01:40: 00:00 [place] 29 :00 Medical Branch glyBURIDE 2021-05 Yes [id number] 1.25mg Take 1 Univers 1.25 mg 2-29 tablet by ity of tablet 00:00: mouth in [place] 00 the Medical morning Branch and 1 tablet in the evening. Take with meals. fluconazole 2021-05- No [id number] 150mg Take 1 Univers 150 mg 2-29 12-30 tablet by ity of tablet 00:00: 05:59 [place] 00 :00 now for 1 Medical dose. Branch Blood-Gluco 2021-05 Yes [id number] Use as Univers se Meter 2-16 directed ity of (ACCU-CHEK 00:00: [place] GUIDE 00 Medical GLUCOSE Branch METER) Misc lancets 33 2021-05 Yes [id number] Use as U nivers gauge Misc 2-16 directed ity o f 00:00: [place] 00 Medical Branch blood sugar 2021-05 Yes [id number] Use as Univers diagnostic 2-16 directed ity o f (ACCU-CHEK 00:00: [place] GUIDE TEST 00 Medical STRIPS) Branch strip Blood-Gluco 2021-05 Yes [id number] Use as Univers se Meter 2-16 directed ity of (ACCU-CHEK 00:00: [place] GUIDE 00 Medical GLUCOSE Branch METER) Misc lancets 33 2021-05 Yes [id number] Use as U nivers gauge Misc 2-16 directed ity o f 00:00: [place] 00 Medical Branch blood sugar 2021-05 Yes [id number] Use as Univers diagnostic 2-16 directed ity o f (ACCU-CHEK 00:00: [place] GUIDE TEST 00 Medical STRIPS) Branch strip Blood-Gluco 2021-05 Yes [id number] Use as Univers se Meter 2-16 directed ity of (ACCU-CHEK 00:00: [place] GUIDE 00 Medical GLUCOSE Branch METER) Misc lancets 33 2021-05 Yes [id number] Use as U nivers gauge Misc 2-16 directed ity o f 00:00: [place] 00 Medical Branch blood sugar 2021-05 Yes [id number] Use as Univers diagnostic 2-16 directed ity o f (ACCU-CHEK 00:00: [place] GUIDE TEST 00 Medical STRIPS) Branch strip Blood-Gluco 2021-05 Yes [id number] Use as Univers se Meter 2-16 directed ity of (ACCU-CHEK 00:00: [place] GUIDE 00 Medical GLUCOSE Branch METER) Misc lancets 2021-05 Yes [id number] Use as U nivers gauge Misc 2-16 directed ity o f 00:00: [place] 00 Medical Branch blood sugar 2021-05 Yes [id number] Use as Univers diagnostic 2-16 directed ity o f (ACCU-CHEK 00:00: [place] GUIDE TEST 00 Medical STRIPS) Branch strip Blood-Gluco 2021-05 Yes [id number] Use as Univers se Meter 2-16 directed ity of (ACCU-CHEK 00:00: [place] GUIDE 00 Medical GLUCOSE Branch METER) Misc lancets 33 2021-05 Yes [id number] Use as U nivers gauge Misc 2-16 directed ity o f 00:00: [place] 00 Medical Branch blood sugar 2021-05 Yes [id number] Use as Univers diagnostic 2-16 directed ity o f (ACCU-CHEK 00:00: [place] GUIDE TEST 00 Medical STRIPS) Branch strip butalbital- 2021-05 Yes 1{tbl} 1 tablet, Univers acetaminoph 2-07 Oral, ity of en-caff 23:43: Q4HPRN, [place] (ESGIC) 27 Starting Medical 50-325-40 on Wed Branch mg tablet 1 04/06/22 at tablet 1743, Until Discontinu ed, Routine, Pain (scale 1-3), Pain (scale 4-6) 2021-05 Yes Take by Univer s vit,loreto 2-07 mouth. ity of 74/iron/fol 18:57: [place] [address] Medical ( Branch VITAMIN 1+1 ORAL) ALPRAZolam 2021-05 Yes 1 tablet Uni vers 0.25 mg 2-07 ity of tablet 18:57: [address] 2021-05 Yes Take by Univer s vit,loreto 2-07 mouth. ity of 74/iron/fol 18:57: [place] [address] Medical ( Branch VITAMIN 1+1 ORAL) ALPRAZolam 2021-05 Yes 1 tablet Uni vers 0.25 mg 2-07 ity of tablet 18:57: [address] 2021-05 Yes Take by [employer] vit,loreto 2-07 mouth. ity of 74/iron/fol 18:57: [place] [address] Medical ( Branch VITAMIN 1+1 ORAL) ALPRAZolam 2021-05 Yes 1 tablet Uni vers 0.25 mg 2-07 ity of tablet 18:57: [address] 2021-05 Yes Take by [employer] vit,loreto 2-07 mouth. ity of 74/iron/fol 18:57: [place] [address] Medical ( Branch VITAMIN 1+1 ORAL) 2021-05 Yes Take by [employer] vit,loreto 2-07 mouth. ity of 74/iron/fol 18:57: [place] [address] Medical ( Branch VITAMIN 1+1 ORAL) ALPRAZolam 2021-05 Yes 1 tablet Uni vers 0.25 mg 2-07 ity of tablet 18:57: [address] 2021-05 Yes Take by [employer] vit,loreto 2-07 mouth. ity of 74/iron/fol 18:57: [place] [address] Medical ( Branch VITAMIN 1+1 ORAL) ALPRAZolam 2021-05 Yes 1 tablet Uni vers 0.25 mg 2-07 ity of tablet 18:57: [address] 2021-05 Yes Take by Univer s vit,loreto 2-07 mouth. ity of 74/iron/fol 18:57: [place] ic 21 Medical ( Branch VITAMIN 1+1 ORAL) ALPRAZolam 2021-05 Yes 1 tablet Uni vers 0.25 mg 2-07 ity of tablet 18:57: [address] Branch fluconazole 2021-05- No 150mg 150 mg, U nivers (DIFLUCAN) 05-30 Oral, ity of tablet 150 23:15: 22:48 ONCE, 1 [place] as mg 00 :00 dose, On [facility] 03/30/22 at 1715, JUICE
Re ason for Anti-Infec tive: Documented Infection< br>Documen eduarda Infection Site: Other
O ther site: Vaginal
Duration of Therapy: Other (see Comments) metroNIDAZO 2021-05- No 500mg 500 mg, U nivers LE (FLAGYL) 05-30 Oral, ity of tablet 500 23:15: 22:39 ONCE, 1 [place] as mg 00 :00 dose, On [facility] 03/30/22 at 1715, Routine
Reason for Anti-Infec tive: Documented Infection< br>Documen eduarda Infection Site: Other
O ther site: Vagina
Duration of Therapy: 7 days iopamidol 2021-05- No [id number] 70mL 70 mL, U nivers (ISOVUE 05-30 Intravenou ity o f 370-500 mL) 21:45: 21:45 s, ONCE, 1 [place] injection 00 :00 dose, On Medica l 70 mL [facility] 03/30/22 at 1545, Routine 2021-05 Yes Take by [employer] vit,loreto 1-30 mouth. ity of 74/iron/fol 17:00: [address] ( Branch VITAMIN 1+1 ORAL) ALPRAZolam 2021-05 Yes 1 tablet Uni vers 0.25 mg -30 ity of tablet 17:00: [address] 2021-05 Yes Take by [employer] vit,loreto 1-30 mouth. ity of 74/iron/fol 17:00: [address] ( Branch VITAMIN 1+1 ORAL) ALPRAZolam 2021-05 Yes 1 tablet Uni vers 0.25 mg -30 ity of tablet 17:00: [address] 2021-05 Yes Take by Univer s vit,loreto 1-30 mouth. ity of 74/iron/fol 17:00: [place] [address] Medical ( Branch VITAMIN 1+1 ORAL) ALPRAZolam 2021-05 Yes 1 tablet Uni vers 0.25 mg 1-30 ity of tablet 17:00: [address] 2021-05 Yes Take by Univer s vit,loreto 1-30 mouth. ity of 74/iron/fol 17:00: [place] [address] Medical ( Branch VITAMIN 1+1 ORAL) ALPRAZolam 2021-05 Yes 1 tablet Uni vers 0.25 mg 1-30 ity of tablet 17:00: [address] 2021-05 Yes Take by Univer s vit,loreto 1-30 mouth. ity of 74/iron/fol 17:00: [place] [address] Medical ( Branch VITAMIN 1+1 ORAL) ALPRAZolam 2021-05 Yes 1 tablet Uni vers 0.25 mg 1-30 ity of tablet 17:00: [address] 2021-05 Yes Take by Univer s vit,loreto 1-30 mouth. ity of 74/iron/fol 17:00: [place] [address] Medical ( Branch VITAMIN 1+1 ORAL) ALPRAZolam 2021-05 Yes 1 tablet Uni vers 0.25 mg 1-30 ity of tablet 17:00: [address] 2021-05 Yes Take by Univer s vit,loreto 1-30 mouth. ity of 74/iron/fol 17:00: [address] ( Branch VITAMIN 1+1 ORAL) ALPRAZolam 2021-05 Yes 1 tablet Uni vers 0.25 mg 1-30 ity of tablet 17:00: [address] 2021-05 Yes Take by Univer s vit,loreto 1-30 mouth. ity of 74/iron/fol 17:00: [place] [address] Medical ( Branch VITAMIN 1+1 ORAL) ALPRAZolam 2021-05 Yes 1 tablet Uni vers 0.25 mg 1-30 ity of tablet 17:00: [address] 2021-05 Yes Take by Univer s vit,loreto 1-30 mouth. ity of 74/iron/fol 17:00: [place] [address] Medical ( Branch VITAMIN 1+1 ORAL) ALPRAZolam 2021-05 Yes 1 tablet Uni vers 0.25 mg 1-30 ity of tablet 17:00: [place] [address] Medical Branch 2021-05 Yes Take by [employer] vit,loreto 1-30 mouth. ity of 74/iron/fol 17:00: [facility] [place] [facility] 14 Medical ( Branch VITAMIN 1+1 ORAL) ALPRAZolam 2021-05 Yes 1 tablet Uni vers 0.25 mg 1-30 ity of tablet 17:00: [place] [address] Medical Branch metroNIDAZO 2021-05 Yes [id number] 500mg Take 1 Univers LE 500 mg 1-30 tablet by ity o f tablet 00:00: mouth [place] 00 every 12 Medical (twelve) Branch hours. metroNIDAZO 2021-05 Yes [id number] 500mg Take 1 Univers LE 500 mg 1-30 tablet by ity o f tablet 00:00: mouth [place] 00 every 12 Medical (twelve) Branch hours. metroNIDAZO 2021-05 Yes [id number] 500mg Take 1 Univers LE 500 mg 1-30 tablet by ity o f tablet 00:00: mouth [place] 00 every 12 Medical (twelve) Branch hours. metroNIDAZO 2021-05 Yes [id number] 500mg Take 1 Univers LE 500 mg 1-30 tablet by ity o f tablet 00:00: mouth [place] 00 every 12 Medical (twelve) Branch hours. metroNIDAZO 2021-05 Yes [id number] 500mg Take 1 Univers LE 500 mg 1-30 tablet by ity o f tablet 00:00: mouth [place] 00 every 12 Medical (twelve) Branch hours. metroNIDAZO 2021-05 Yes [id number] 500mg Take 1 Univers LE 500 mg 1-30 tablet by ity o f tablet 00:00: mouth [place] 00 every 12 Medical (twelve) Branch hours. metroNIDAZO 2021-05 Yes [id number] 500mg Take 1 Univers LE 500 mg 1-30 tablet by ity o f tablet 00:00: mouth [place] 00 every 12 Medical (twelve) Branch hours. metroNIDAZO 2021-05 Yes [id number] 500mg Take 1 Univers LE 500 mg 1-30 tablet by ity o f tablet 00:00: mouth [place] 00 every 12 Medical (twelve) Branch hours. metroNIDAZO 2021-05 Yes [id number] 500mg Take 1 Univers LE 500 mg 1-30 tablet by ity o f tablet 00:00: mouth [place] 00 every 12 Medical (twelve) Branch hours. metroNIDAZO 2021-05 Yes [id number] 500mg Take 1 Univers LE 500 mg 1-30 tablet by ity o f tablet 00:00: mouth [place] 00 every 12 Medical (twelve) Branch hours. metroNIDAZO 2021-05 Yes [id number] 500mg Take 1 Univers LE 500 mg 1-30 tablet by ity o f tablet 00:00: mouth [place] 00 every 12 Medical (twelve) Branch hours. metroNIDAZO 2021-05 Yes [id number] 500mg Take 1 Univers LE 500 mg 1-30 tablet by ity o f tablet 00:00: mouth [place] 00 every 12 Medical (twelve) Branch hours. metroNIDAZO 2021-05 Yes [id number] 500mg Take 1 Univers LE 500 mg 1-30 tablet by ity o f tablet 00:00: mouth [place] 00 every 12 Medical (twelve) Branch hours. metroNIDAZO 2021-05 Yes [id number] 500mg Take 1 Univers LE 500 mg 1-30 tablet by ity o f tablet 00:00: mouth [place] 00 every 12 Medical (twelve) Branch hours. metroNIDAZO 2021-05 Yes [id number] 500mg Take 1 Univers LE 500 mg 1-30 tablet by ity o f tablet 00:00: mouth [place] 00 every 12 Medical (twelve) Branch hours. metroNIDAZO 2021-05 Yes [id number] 500mg Take 1 Univers LE 500 mg 1-30 tablet by ity o f tablet 00:00: mouth [place] 00 every 12 Medical (twelve) Branch hours. metroNIDAZO 2021-05- No [id number] 500mg Take 1 Univers LE 500 mg 1-30 12-29 tablet by ity of tablet 00:00: 00:00 mouth [place] 00 :00 every 12 Medical (twelve) Branch hours. butalbital- 2021-05- No 1{tbl} 1 tablet, Univers acetaminoph 0-18 10-18 Oral, ity of en-caff 23:45: 22:57 ONCE, 1 [place] (ESGIC) 00 :00 dose, On Medical 50-325-40 Tue Branch mg tablet 1 02/15/22 tablet at 1845, Routine 2021-05 Yes Take by Univer s vit,loreto 0-18 mouth. ity of 74/iron/fol 18:40: [place] [address] Medical ( Branch VITAMIN 1+1 ORAL) ALPRAZolam 2021-05 Yes 1 tablet Uni vers 0.25 mg 0-18 ity of tablet 18:40: [address] 2021-05 Yes Take by Univer s vit,loreto 0-18 mouth. ity of 74/iron/fol 18:40: [place] [address] Medical ( Branch VITAMIN 1+1 ORAL) ALPRAZolam 2021-05 Yes 1 tablet Uni vers 0.25 mg 0-18 ity of tablet 18:40: [address] 2021-05 Yes [facility] mouth. ity of 74/iron/fol 18:40: [place] [address] Medical ( Branch VITAMIN 1+1 ORAL) ALPRAZolam 2021-05 Yes 1 tablet Uni vers 0.25 mg 0-18 ity of tablet 18:40: [address] 2021-05 Yes [facility] 0-18 mouth. ity of 74/iron/fol 18:40: [place] [address] Medical ( Branch VITAMIN 1+1 ORAL) ALPRAZolam 2021-05 Yes 1 tablet Uni vers 0.25 mg 0-18 ity of tablet 18:40: [address] 2021-05 Yes [facility] 0-18 mouth. ity of 74/iron/fol 15:47: [place] [address] Medical ( Branch VITAMIN 1+1 ORAL) ALPRAZolam 2021-05 Yes 1 tablet Uni vers 0.25 mg 0-18 ity of tablet 15:47: [address] 2021-05 Yes [facility] 0-18 mouth. ity of 74/iron/fol 15:47: [place] [address] Medical ( Branch VITAMIN 1+1 ORAL) ALPRAZolam 2021-05 Yes 1 tablet Uni vers 0.25 mg 0-18 ity of tablet 15:47: [address] valACYclovi 2021-05- No Valtrex Un dolores r 500 mg 0-05 10-05 500 mg ity of tablet 10:47: 00:00 tablet [place] 09 :00 Take 1 Medical tablet Branch every day by oral route. valACYclovi 2021- No [id number] 1g Take 1 Univers r (VALTREX) 01-13 tablet by it y of 1 gram 00:00: 04:59 mouth in [place] tablet 00 :00 the Medical morning Branch and 1 tablet at noon and 1 tablet in the evening. Do all this for 7 days. valACYclovi 2021- No [id number] 1g Take 1 Univers r (VALTREX) 01-13 tablet by it y of 1 gram 00:00: 04:59 mouth in [place] tablet 00 :00 the Medical morning Branch and 1 tablet at noon and 1 tablet in the evening. Do all this for 7 days. oxyCODONE-a 2021- No [id number] 1{tbl} Take 1 U nivers cetaminophe 01-13 tablet by it y of n 00:00: 04:59 mouth [place] (PERCOCET) 00 :00 every 6 Medica l 5-325 mg (six) Branch per tablet hours as needed for Pain (scale 7-10) for up to 7 days. Indication s: acute pain valACYclovi 2021- No [id number] 1g Take 1 Univers r (VALTREX) 01-13 tablet by it y of 1 gram 00:00: 04:59 mouth in [place] tablet 00 :00 the Medical morning Branch and 1 tablet at noon and 1 tablet in the evening. Do all this for 7 days. oxyCODONE-a 2021- No [id number] 1{tbl} Take 1 U nivers cetaminophe 01-13 tablet by it y of n 00:00: 04:59 mouth [place] (PERCOCET) 00 :00 every 6 Medica l 5-325 mg (six) Branch per tablet hours as needed for Pain (scale 7-10) for up to 7 days. Indication s: acute pain ondansetron No 4mg 4 mg, Slow Univers (ZOFRAN 01-05 IV Push, ity of (PF)) 22:45: 22:04 ONCE, 1 [place] injection 4 00 :00 dose, On Medi loreto mg 01/05/22 Branch at 1745, JUICE NaCl 0.9% No 1000mL at 999 Uni vers (NS) bolus 01-05 09-07 mL/hr, ity of infusion 21:30: 21:38 1,000 mL, Power as 1,000 mL 00 :00 IV Medical Infusion, Branch ONCE, 1 dose, On Mon01/05/22 at 1630, STAT ondansetron 2021-0 Yes [id number] 4mg Take 1 Univers 4 mg 9-07 tablet by ity of disintegrat 00:00: mouth [place] ing tablet 00 every 8 Medica l (eight) Branch hours as needed for Nausea and Vomiting (N/V). ondansetron 2021-0 Yes [id number] 4mg Take 1 Univers 4 mg 9-07 tablet by ity of disintegrat 00:00: mouth [place] ing tablet 00 every 8 Medica l (eight) Branch hours as needed for Nausea and Vomiting (N/V). ondansetron 2021-0 Yes [id number] 4mg Take 1 Univers 4 mg 9-07 tablet by ity of disintegrat 00:00: mouth [place] ing tablet 00 every 8 Medica l (eight) Branch hours as needed for Nausea and Vomiting (N/V). ondansetron 2021-0 Yes [id number] 4mg Take 1 Univers 4 mg 9-07 tablet by ity of disintegrat 00:00: mouth [place] ing tablet 00 every 8 Medica l (eight) Branch hours as needed for Nausea and Vomiting (N/V). ondansetron 2021-0 Yes [id number] 4mg Take 1 Univers 4 mg 9-07 tablet by ity of disintegrat 00:00: mouth [place] ing tablet 00 every 8 Medica l (eight) Branch hours as needed for Nausea and Vomiting (N/V). ondansetron 2021-0 Yes [id number] 4mg Take 1 Univers 4 mg 9-07 tablet by ity of disintegrat 00:00: mouth [place] ing tablet 00 every 8 Medica l (eight) Branch hours as needed for Nausea and Vomiting (N/V). ondansetron 2021-0 Yes [id number] 4mg Take 1 Univers 4 mg 9-07 tablet by ity of disintegrat 00:00: mouth [place] ing tablet 00 every 8 Medica l (eight) Branch hours as needed for Nausea and Vomiting (N/V). ondansetron 2-0 Yes [id number] 4mg Take 1 Univers 4 mg 9-07 tablet by ity of disintegrat 00:00: mouth [place] ing tablet 00 every 8 Medica l (eight) Branch hours as needed for Nausea and Vomiting (N/V). ondansetron 2-0 Yes [id number] 4mg Take 1 Univers 4 mg 9-07 tablet by ity of disintegrat 00:00: mouth [place] ing tablet 00 every 8 Medica l (eight) Branch hours as needed for Nausea and Vomiting (N/V). ondansetron 2021-0 Yes [id number] 4mg Take 1 Univers 4 mg 9-07 tablet by ity of disintegrat 00:00: mouth [place] ing tablet 00 every 8 Medica l (eight) Branch hours as needed for Nausea and Vomiting (N/V). ondansetron 2021-0 Yes [id number] 4mg Take 1 Univers 4 mg 9-07 tablet by ity of disintegrat 00:00: mouth [place] ing tablet 00 every 8 Medica l (eight) Branch hours as needed for Nausea and Vomiting (N/V). ondansetron 2021-0 Yes [id number] 4mg Take 1 Univers 4 mg 9-07 tablet by ity of disintegrat 00:00: mouth [place] ing tablet 00 every 8 Medica l (eight) Branch hours as needed for Nausea and Vomiting (N/V). ondansetron 2021-0 Yes [id number] 4mg Take 1 Univers 4 mg 9-07 tablet by ity of disintegrat 00:00: mouth [place] ing tablet 00 every 8 Medica l (eight) Branch hours as needed for Nausea and Vomiting (N/V). ondansetron 2-0 Yes [id number] 4mg Take 1 Univers 4 mg 9-07 tablet by ity of disintegrat 00:00: mouth [place] ing tablet 00 every 8 Medica l (eight) Branch hours as needed for Nausea and Vomiting (N/V). ondansetron 2-0 Yes [id number] 4mg Take 1 Univers 4 mg 9-07 tablet by ity of disintegrat 00:00: mouth [place] ing tablet 00 every 8 Medica l (eight) Branch hours as needed for Nausea and Vomiting (N/V). ondansetron 2-0 Yes [id number] 4mg Take 1 Univers 4 mg 9-07 tablet by ity of disintegrat 00:00: mouth [place] ing tablet 00 every 8 Medica l (eight) Branch hours as needed for Nausea and Vomiting (N/V). ondansetron 2-0 Yes [id number] 4mg Take 1 Univers 4 mg 9-07 tablet by ity of disintegrat 00:00: mouth [place] ing tablet 00 every 8 Medica l (eight) Branch hours as needed for Nausea and Vomiting (N/V). ondansetron 2021-0 Yes [id number] 4mg Take 1 Univers 4 mg 9-07 tablet by ity of disintegrat 00:00: mouth [place] ing tablet 00 every 8 Medica l (eight) Branch hours as needed for Nausea and Vomiting (N/V). ondansetron 2021-0 Yes [id number] 4mg Take 1 Univers 4 mg 9-07 tablet by ity of disintegrat 00:00: mouth [place] ing tablet 00 every 8 Medica l (eight) Branch hours as needed for Nausea and Vomiting (N/V). ondansetron 2021-0 Yes [id number] 4mg Take 1 Univers 4 mg 9-07 tablet by ity of disintegrat 00:00: mouth [place] ing tablet 00 every 8 Medica l (eight) Branch hours as needed for Nausea and Vomiting (N/V). ondansetron 2021-0 Yes [id number] 4mg Take 1 Univers 4 mg 9-07 tablet by ity of disintegrat 00:00: mouth [place] ing tablet 00 every 8 Medica l (eight) Branch hours as needed for Nausea and Vomiting (N/V). ondansetron 2021-0 Yes [id number] 4mg Take 1 Univers 4 mg 9-07 tablet by ity of disintegrat 00:00: mouth [place] ing tablet 00 every 8 Medica l (eight) Branch hours as needed for Nausea and Vomiting (N/V). ondansetron 2-0 Yes [id number] 4mg Take 1 Univers 4 mg 9-07 tablet by ity of disintegrat 00:00: mouth [place] ing tablet 00 every 8 Medica l (eight) Branch hours as needed for Nausea and Vomiting (N/V). ondansetron 2-0 Yes [id number] 4mg Take 1 [facility] 4 mg 9-07 tablet by ity of disintegrat 00:00: mouth [place] ing tablet 00 every 8 Medica l (eight) Branch hours as needed for Nausea and Vomiting (N/V). ondansetron 2-0 Yes [id number] 4mg Take 1 [facility] 4 mg 9-07 tablet by ity of disintegrat 00:00: mouth [place] ing tablet 00 every 8 Medica l (eight) Branch hours as needed for Nausea and Vomiting (N/V). ondansetron 2-0 Yes [id number] 4mg Take 1 [facility] 4 mg 9-07 tablet by ity of disintegrat 00:00: mouth [place] ing tablet 00 every 8 Medica l (eight) Branch hours as needed for Nausea and Vomiting (N/V). ondansetron 2021-0 Yes [id number] 4mg Take 1 [facility] 4 mg 9-07 tablet by ity of disintegrat 00:00: mouth [place] ing tablet 00 every 8 Medica l (eight) Branch hours as needed for Nausea and Vomiting (N/V). ondansetron 2021-0 Yes [id number] 4mg Take 1 [facility] 4 mg 9-07 tablet by ity of disintegrat 00:00: mouth [place] ing tablet 00 every 8 Medica l (eight) Branch hours as needed for Nausea and Vomiting (N/V). ondansetron 2021-0 Yes [id number] 4mg Take 1 [facility] 4 mg 9-07 tablet by ity of disintegrat 00:00: mouth [place] ing tablet 00 every 8 Medica l (eight) Branch hours as needed for Nausea and Vomiting (N/V). ondansetron 2021-0 Yes [id number] 4mg Take 1 [facility] 4 mg 9-07 tablet by ity of disintegrat 00:00: mouth [place] ing tablet 00 every 8 Medica l (eight) Branch hours as needed for Nausea and Vomiting (N/V). ondansetron 2-0 Yes [id number] 4mg Take 1 [facility] 4 mg 9-07 tablet by ity of disintegrat 00:00: mouth [place] ing tablet 00 every 8 Medica l (eight) Branch hours as needed for Nausea and Vomiting (N/V). ondansetron 2-0 Yes [id number] 4mg Take 1 [facility] 4 mg 9-07 tablet by ity of disintegrat 00:00: mouth [place] ing tablet 00 every 8 Medica l (eight) Branch hours as needed for Nausea and Vomiting (N/V). ondansetron 2021- No [id number] 4mg Take 1 [facility] 4 mg 9-07 12-30 tablet by ity of disintegrat 00:00: 00:00 [place] tablet 00 :00 every 8 Medica l (eight) Branch hours as needed for Nausea and Vomiting (N/V). valACYclovi Yes Valtrex [facility] vers r 500 mg 9-06 500 mg ity of tablet 11:53: tablet [place] 37 Take 1 Medical tablet Branch every day by oral route. valACYclovi Yes Valtrex [facility] vers r 500 mg 9-06 500 mg ity of tablet 11:53: tablet [place] 37 Take 1 Medical tablet Branch every day by oral route. ALPRAZolam Yes 1 tablet Uni vers 0.25 mg 9-06 ity of tablet 11:53: [address] valACYclovi Yes Valtrex [facility] vers r 500 mg 9-06 500 mg ity of tablet 11:53: tablet [place] 37 Take 1 Medical tablet Branch every day by oral route. ALPRAZolam Yes 1 tablet Uni vers 0.25 mg 9-06 ity of tablet 11:53: [address] valACYclovi Yes Valtrex [facility] vers r 500 mg 9-06 500 mg ity of tablet 11:53: tablet [place] 37 Take 1 Medical tablet Branch every day by oral route. ALPRAZolam Yes 1 tablet Uni vers 0.25 mg 9-06 ity of tablet 11:53: [address] valACYclovi Yes Valtrex [facility] vers r 500 mg 9-06 500 mg ity of tablet 11:53: tablet [place] 37 Take 1 Medical tablet Branch every day by oral route. ALPRAZolam Yes 1 tablet Uni vers 0.25 mg 9-06 ity of tablet 11:53: [address] valACYclovi Yes Valtrex [facility] vers r 500 mg 9-06 500 mg ity of tablet 11:53: tablet [place] 37 Take 1 Medical tablet Branch every day by oral route. ALPRAZolam Yes 1 tablet Uni vers 0.25 mg 9-06 ity of tablet 11:53: [address] valACYclovi Yes Valtrex [facility] vers r 500 mg 9-06 500 mg ity of tablet 11:53: tablet [place] 37 Take 1 Medical tablet Branch every day by oral route. ALPRAZolam Yes 1 tablet Uni vers 0.25 mg 9-06 ity of tablet 11:53: [address] valACYclovi Yes Valtrex [facility] vers r 500 mg 9-06 500 mg ity of tablet 11:53: tablet [place] 37 Take 1 Medical tablet Branch every day by oral route. ALPRAZolam Yes 1 tablet Uni vers 0.25 mg 9-06 ity of tablet 11:53: [address] valACYclovi Yes Valtrex [facility] vers r 500 mg 9-06 500 mg ity of tablet 11:53: tablet [place] 37 Take 1 Medical tablet Branch every day by oral route. ALPRAZolam Yes 1 tablet Uni vers 0.25 mg 9-06 ity of tablet 11:53: [address] valACYclovi Yes Valtrex [facility] vers r 500 mg 9-06 500 mg ity of tablet 11:53: tablet [place] 37 Take 1 Medical tablet Branch every day by oral route. ALPRAZolam Yes 1 tablet [facility] vers 0.25 mg 9-06 ity of tablet 11:53: [address] ALPRAZolam Yes 1 tablet Uni vers 0.25 mg 9-06 ity of tablet 11:53: [address] ALPRAZolam Yes 1 tablet [facility] vers 0.25 mg 9-06 ity of tablet 11:53: [address] ALPRAZolam 2021- Yes 1 tablet Uni vers 0.25 mg 9-06 ity of tablet 11:53: [address] metoclopram 2021-0 Yes [id number] 5mg Take 1 [facility] nick HCl 5 8-15 tablet by ity o f mg tablet 00:00: mouth [place] 00 every 6 Medical (six) Branch hours as needed (headache) . diphenhydrA 2021-0 Yes [id number] 25mg Take 1 [facility] MINE 25 mg 8-15 tablet by ity of tablet 00:00: mouth [place] 00 every 6 Medical (six) Branch hours as needed (take with reglan for headache). metoclopram 2022-0 Yes [id number] 5mg Take 1 [facility] nick HCl 5 8-15 tablet by ity o f mg tablet 00:00: mouth [place] 00 every 6 Medical (six) Branch hours as needed (headache) . diphenhydrA 2022-0 Yes [id number] 25mg Take 1 [facility] MINE 25 mg 8-15 tablet by ity of tablet 00:00: mouth [place] 00 every 6 Medical (six) Branch hours as needed (take with reglan for headache). metoclopram 2022-0 Yes [id number] 5mg Take 1 [facility] nick HCl 5 8-15 tablet by ity o f mg tablet 00:00: mouth [place] 00 every 6 Medical (six) Branch hours as needed (headache) . diphenhydrA 2022-0 Yes [id number] 25mg Take 1 [facility] MINE 25 mg 8-15 tablet by ity of tablet 00:00: mouth [place] 00 every 6 Medical (six) Branch hours as needed (take with reglan for headache). metoclopram 2022-0 Yes [id number] 5mg Take 1 [facility] nick HCl 5 8-15 tablet by ity o f mg tablet 00:00: mouth [place] 00 every 6 Medical (six) Branch hours as needed (headache) . diphenhydrA 2022-0 Yes [id number] 25mg Take 1 [facility] MINE 25 mg 8-15 tablet by ity of tablet 00:00: mouth [place] 00 every 6 Medical (six) Branch hours as needed (take with reglan for headache). metoclopram 2022-0 Yes [id number] 5mg Take 1 [facility] nick HCl 5 8-15 tablet by ity o f mg tablet 00:00: mouth [place] 00 every 6 Medical (six) Branch hours as needed (headache) . diphenhydrA 2022-0 Yes [id number] 25mg Take 1 [facility] MINE 25 mg 8-15 tablet by ity of tablet 00:00: mouth [place] 00 every 6 Medical (six) Branch hours as needed (take with reglan for headache). metoclopram 2022-0 Yes [id number] 5mg Take 1 [facility] nick HCl 5 8-15 tablet by ity o f mg tablet 00:00: mouth [place] 00 every 6 Medical (six) Branch hours as needed (headache) . diphenhydrA 2022-0 Yes [id number] 25mg Take 1 [facility] MINE 25 mg 8-15 tablet by ity of tablet 00:00: mouth [place] 00 every 6 Medical (six) Branch hours as needed (take with reglan for headache). metoclopram 2022-0 Yes [id number] 5mg Take 1 [facility] nick HCl 5 8-15 tablet by ity o f mg tablet 00:00: mouth [place] 00 every 6 Medical (six) Branch hours as needed (headache) . diphenhydrA 2022-0 Yes [id number] 25mg Take 1 [facility] MINE 25 mg 8-15 tablet by ity of tablet 00:00: mouth [place] 00 every 6 Medical (six) Branch hours as needed (take with reglan for headache). metoclopram 2022-0 Yes [id number] 5mg Take 1 [facility] nick HCl 5 8-15 tablet by ity o f mg tablet 00:00: mouth [place] 00 every 6 Medical (six) Branch hours as needed (headache) . diphenhydrA 2022-0 Yes [id number] 25mg Take 1 [facility] MINE 25 mg 8-15 tablet by ity of tablet 00:00: mouth [place] 00 every 6 Medical (six) Branch hours as needed (take with reglan for headache). metoclopram 2022-0 Yes [id number] 5mg Take 1 [facility] nick HCl 5 8-15 tablet by ity o f mg tablet 00:00: mouth [place] 00 every 6 Medical (six) Branch hours as needed (headache) . diphenhydrA 2022-0 Yes [id number] 25mg Take 1 [facility] MINE 25 mg 8-15 tablet by ity of tablet 00:00: mouth [place] 00 every 6 Medical (six) Branch hours as needed (take with reglan for headache). metoclopram 2022-0 Yes [id number] 5mg Take 1 [facility] nick HCl 5 8-15 tablet by ity o f mg tablet 00:00: mouth [place] 00 every 6 Medical (six) Branch hours as needed (headache) . diphenhydrA 2022-0 Yes [id number] 25mg Take 1 [facility] MINE 25 mg 8-15 tablet by ity of tablet 00:00: mouth [place] 00 every 6 Medical (six) Branch hours as needed (take with reglan for headache). metoclopram 2022-0 Yes [id number] 5mg Take 1 [facility] nick HCl 5 8-15 tablet by ity o f mg tablet 00:00: mouth [place] 00 every 6 Medical (six) Branch hours as needed (headache) . diphenhydrA 2022-0 Yes [id number] 25mg Take 1 [facility] MINE 25 mg 8-15 tablet by ity of tablet 00:00: mouth [place] 00 every 6 Medical (six) Branch hours as needed (take with reglan for headache). metoclopram 2022-0 Yes [id number] 5mg Take 1 [facility] nick HCl 5 8-15 tablet by ity o f mg tablet 00:00: mouth [place] 00 every 6 Medical (six) Branch hours as needed (headache) . diphenhydrA 2022-0 Yes [id number] 25mg Take 1 [facility] MINE 25 mg 8-15 tablet by ity of tablet 00:00: mouth [place] 00 every 6 Medical (six) Branch hours as needed (take with reglan for headache). metoclopram 2022-0 Yes [id number] 5mg Take 1 [facility] nick HCl 5 8-15 tablet by ity o f mg tablet 00:00: mouth [place] 00 every 6 Medical (six) Branch hours as needed (headache) . diphenhydrA 2022-0 Yes [id number] 25mg Take 1 [facility] MINE 25 mg 8-15 tablet by ity of tablet 00:00: mouth [place] 00 every 6 Medical (six) Branch hours as needed (take with reglan for headache). metoclopram 2022-0 Yes [id number] 5mg Take 1 [facility] nick HCl 5 8-15 tablet by ity o f mg tablet 00:00: mouth [place] 00 every 6 Medical (six) Branch hours as needed (headache) . diphenhydrA 2022-0 Yes [id number] 25mg Take 1 [facility] MINE 25 mg 8-15 tablet by ity of tablet 00:00: mouth [place] 00 every 6 Medical (six) Branch hours as needed (take with reglan for headache). metoclopram 2022-0 Yes [id number] 5mg Take 1 [facility] nick HCl 5 8-15 tablet by ity o f mg tablet 00:00: mouth [place] 00 every 6 Medical (six) Branch hours as needed (headache) . diphenhydrA 2022-0 Yes [id number] 25mg Take 1 [facility] MINE 25 mg 8-15 tablet by ity of tablet 00:00: mouth [place] 00 every 6 Medical (six) Branch hours as needed (take with reglan for headache). metoclopram 2022-0 Yes [id number] 5mg Take 1 [facility] nick HCl 5 8-15 tablet by ity o f mg tablet 00:00: mouth [place] 00 every 6 Medical (six) Branch hours as needed (headache) . diphenhydrA 2022-0 Yes [id number] 25mg Take 1 [facility] MINE 25 mg 8-15 tablet by ity of tablet 00:00: mouth [place] 00 every 6 Medical (six) Branch hours as needed (take with reglan for headache). metoclopram 2022-0 Yes [id number] 5mg Take 1 [facility] nick HCl 5 8-15 tablet by ity o f mg tablet 00:00: mouth [place] 00 every 6 Medical (six) Branch hours as needed (headache) . diphenhydrA 2022-0 Yes [id number] 25mg Take 1 [facility] MINE 25 mg 8-15 tablet by ity of tablet 00:00: mouth [place] 00 every 6 Medical (six) Branch hours as needed (take with reglan for headache). metoclopram 2022-0 Yes [id number] 5mg Take 1 [facility] nick HCl 5 8-15 tablet by ity o f mg tablet 00:00: mouth [place] 00 every 6 Medical (six) Branch hours as needed (headache) . diphenhydrA 2022-0 Yes [id number] 25mg Take 1 [facility] MINE 25 mg 8-15 tablet by ity of tablet 00:00: mouth [place] 00 every 6 Medical (six) Branch hours as needed (take with reglan for headache). metoclopram 2022-0 Yes [id number] 5mg Take 1 [facility] nick HCl 5 8-15 tablet by ity o f mg tablet 00:00: mouth [place] 00 every 6 Medical (six) Branch hours as needed (headache) . diphenhydrA 2022-0 Yes [id number] 25mg Take 1 [facility] MINE 25 mg 8-15 tablet by ity of tablet 00:00: mouth [place] 00 every 6 Medical (six) Branch hours as needed (take with reglan for headache). metoclopram 2022-0 Yes [id number] 5mg Take 1 [facility] nick HCl 5 8-15 tablet by ity o f mg tablet 00:00: mouth [place] 00 every 6 Medical (six) Branch hours as needed (headache) . diphenhydrA 2022-0 Yes [id number] 25mg Take 1 [facility] MINE 25 mg 8-15 tablet by ity of tablet 00:00: mouth [place] 00 every 6 Medical (six) Branch hours as needed (take with reglan for headache). metoclopram 2022-0 Yes [id number] 5mg Take 1 [facility] nick HCl 5 8-15 tablet by ity o f mg tablet 00:00: mouth [place] 00 every 6 Medical (six) Branch hours as needed (headache) . diphenhydrA 2022-0 Yes [id number] 25mg Take 1 [facility] MINE 25 mg 8-15 tablet by ity of tablet 00:00: mouth [place] 00 every 6 Medical (six) Branch hours as needed (take with reglan for headache). metoclopram 2022-0 Yes [id number] 5mg Take 1 [facility] nick HCl 5 8-15 tablet by ity o f mg tablet 00:00: mouth [place] 00 every 6 Medical (six) Branch hours as needed (headache) . diphenhydrA 2022-0 Yes [id number] 25mg Take 1 [facility] MINE 25 mg 8-15 tablet by ity of tablet 00:00: mouth [place] 00 every 6 Medical (six) Branch hours as needed (take with reglan for headache). metoclopram 2022-0 Yes [id number] 5mg Take 1 [facility] nick HCl 5 8-15 tablet by ity o f mg tablet 00:00: mouth [place] 00 every 6 Medical (six) Branch hours as needed (headache) . diphenhydrA 2022-0 Yes [id number] 25mg Take 1 [facility] MINE 25 mg 8-15 tablet by ity of tablet 00:00: mouth [place] 00 every 6 Medical (six) Branch hours as needed (take with reglan for headache). metoclopram 2022-0 Yes [id number] 5mg Take 1 [facility] nick HCl 5 8-15 tablet by ity o f mg tablet 00:00: mouth [place] 00 every 6 Medical (six) Branch hours as needed (headache) . diphenhydrA 2022-0 Yes [id number] 25mg Take 1 [facility] MINE 25 mg 8-15 tablet by ity of tablet 00:00: mouth [place] 00 every 6 Medical (six) Branch hours as needed (take with reglan for headache). metoclopram 2022-0 Yes [id number] 5mg Take 1 [facility] nick HCl 5 8-15 tablet by ity o f mg tablet 00:00: mouth [place] 00 every 6 Medical (six) Branch hours as needed (headache) . diphenhydrA 2022-0 Yes [id number] 25mg Take 1 [facility] MINE 25 mg 8-15 tablet by ity of tablet 00:00: mouth [place] 00 every 6 Medical (six) Branch hours as needed (take with reglan for headache). metoclopram 2022-0 Yes [id number] 5mg Take 1 [facility] nick HCl 5 8-15 tablet by ity o f mg tablet 00:00: mouth [place] 00 every 6 Medical (six) Branch hours as needed (headache) . diphenhydrA 2022-0 Yes [id number] 25mg Take 1 [facility] MINE 25 mg 8-15 tablet by ity of tablet 00:00: mouth [place] 00 every 6 Medical (six) Branch hours as needed (take with reglan for headache). metoclopram 2022-0 Yes [id number] 5mg Take 1 [facility] nick HCl 5 8-15 tablet by ity o f mg tablet 00:00: mouth [place] 00 every 6 Medical (six) Branch hours as needed (headache) . diphenhydrA 2022-0 Yes [id number] 25mg Take 1 [facility] MINE 25 mg 8-15 tablet by ity of tablet 00:00: mouth [place] 00 every 6 Medical (six) Branch hours as needed (take with reglan for headache). metoclopram 2022-0 Yes [id number] 5mg Take 1 [facility] nick HCl 5 8-15 tablet by ity o f mg tablet 00:00: mouth [place] 00 every 6 Medical (six) Branch hours as needed (headache) . diphenhydrA 2022-0 Yes [id number] 25mg Take 1 [facility] MINE 25 mg 8-15 tablet by ity of tablet 00:00: mouth [place] 00 every 6 Medical (six) Branch hours as needed (take with reglan for headache). metoclopram 2022-0 Yes [id number] 5mg Take 1 [facility] nick HCl 5 8-15 tablet by ity o f mg tablet 00:00: mouth [place] 00 every 6 Medical (six) Branch hours as needed (headache) . diphenhydrA 2022-0 Yes [id number] 25mg Take 1 [facility] MINE 25 mg 8-15 tablet by ity of tablet 00:00: mouth [place] 00 every 6 Medical (six) Branch hours as needed (take with reglan for headache). metoclopram 2022-0 Yes [id number] 5mg Take 1 [facility] nick HCl 5 8-15 tablet by ity o f mg tablet 00:00: mouth [place] 00 every 6 Medical (six) Branch hours as needed (headache) . diphenhydrA 2022-0 Yes [id number] 25mg Take 1 [facility] MINE 25 mg 8-15 tablet by ity of tablet 00:00: mouth [place] 00 every 6 Medical (six) Branch hours as needed (take with reglan for headache). metoclopram 2022-0 Yes [id number] 5mg Take 1 [facility] nick HCl 5 8-15 tablet by ity o f mg tablet 00:00: mouth [place] 00 every 6 Medical (six) Branch hours as needed (headache) . diphenhydrA 2022-0 Yes [id number] 25mg Take 1 [facility] MINE 25 mg 8-15 tablet by ity of tablet 00:00: mouth [place] 00 every 6 Medical (six) Branch hours as needed (take with reglan for headache). metoclopram 2022-0 Yes [id number] 5mg Take 1 [facility] nick HCl 5 8-15 tablet by ity o f mg tablet 00:00: mouth [place] 00 every 6 Medical (six) Branch hours as needed (headache) . diphenhydrA 2022-0 Yes [id number] 25mg Take 1 [facility] MINE 25 mg 8-15 tablet by ity of tablet 00:00: mouth [place] 00 every 6 Medical (six) Branch hours as needed (take with reglan for headache). metoclopram 2022-0 Yes [id number] 5mg Take 1 [facility] nick HCl 5 8-15 tablet by ity o f mg tablet 00:00: mouth [place] 00 every 6 Medical (six) Branch hours as needed (headache) . diphenhydrA 2022-0 Yes [id number] 25mg Take 1 [facility] MINE 25 mg 8-15 tablet by ity of tablet 00:00: mouth [place] 00 every 6 Medical (six) Branch hours as needed (take with reglan for headache). metoclopram 2022-0 Yes [id number] 5mg Take 1 [facility] nick HCl 5 8-15 tablet by ity o f mg tablet 00:00: mouth [place] 00 every 6 Medical (six) Branch hours as needed (headache) . diphenhydrA 2021-0 Yes [id number] 25mg Take 1 [facility] MINE 25 mg 8-15 tablet by ity of tablet 00:00: mouth [place] 00 every 6 Medical (six) Branch hours as needed (take with reglan for headache). metoclopram 2021-0 Yes [id number] 5mg Take 1 [facility] nick HCl 5 8-15 tablet by ity o f mg tablet 00:00: mouth [place] 00 every 6 Medical (six) Branch hours as needed (headache) . diphenhydrA 2021-0 Yes [id number] 25mg Take 1 [facility] MINE 25 mg 8-15 tablet by ity of tablet 00:00: mouth [place] 00 every 6 Medical (six) Branch hours as needed (take with reglan for headache). metoclopram 2021-0 2- No [id number] 5mg Take 1 [facility] nick HCl 5 8-15 12-30 tablet by ity of mg tablet 00:00: 00:00 mouth [place] 00 :00 every 6 Medical (six) Branch hours as needed (headache) . diphenhydrA 0 2- No [id number] 25mg Take 1 [facility] MINE 25 mg 8-15 12-30 tablet by ity of tablet 00:00: 00:00 mouth [place] 00 :00 every 6 Medical (six) Branch hours as needed (take with reglan for headache). valACYclovi Yes Valtrex Uni vers r (VALTREX) [...] Branch every day by oral route. valACYclovi 0 Yes Valtrex Uni vers r (VALTREX) 7-11 500 mg ity of 500 mg 10:04: tablet [place] tablet 02 Take 1 Medical tablet Branch every day by oral route. valACYclovi Yes Valtrex Uni vers r (VALTREX) 7-11 500 mg ity of 500 mg 10:04: tablet [place] tablet 02 Take 1 Medical tablet Branch every day by oral route. pyridoxine, Yes [id number] 25mg Take 1 [facility] VITAMIN 7-11 tablet by ity of B-6, 25 mg 00:00: mouth [place] tablet 00 the Medical morning Branch and 1 tablet at noon and 1 tablet in the evening. doxylamine Yes [id number] 25mg Take 1 U nivers 25 mg 7-11 tablet by ity of tablet 00:00: mouth at [place] 00 bedtime. Medical Branch pyridoxine, Yes [id number] 25mg Take 1 [facility] VITAMIN 7-11 tablet by ity of B-6, 25 mg 00:00: mouth [place] tablet 00 the Medical morning Branch and 1 tablet at noon and 1 tablet in the evening. doxylamine Yes [id number] 25mg Take 1 [facility] nivers 25 mg 7-11 tablet by ity of tablet 00:00: mouth at [place] 00 bedtime. Medical Branch pyridoxine, Yes [id number] 25mg Take 1 [facility] VITAMIN 7-11 tablet by ity of B-6, 25 mg 00:00: mouth [place] tablet 00 the Medical morning Branch and 1 tablet at noon and 1 tablet in the evening. doxylamine 0 Yes [id number] 25mg Take 1 [facility] nivers 25 mg 7-11 tablet by ity of tablet 00:00: mouth at [place] 00 bedtime. Medical Branch pyridoxine, Yes [id number] 25mg Take 1 [facility] VITAMIN 7-11 tablet by ity of B-6, 25 mg 00:00: mouth [place] tablet 00 the Medical morning Branch and 1 tablet at noon and 1 tablet in the evening. doxylamine 0 Yes [id number] 25mg Take 1 [facility] nivers 25 mg 7-11 tablet by ity of tablet 00:00: mouth at [place] 00 bedtime. Medical Branch pyridoxine, Yes [id number] 25mg Take 1 [facility] VITAMIN 7-11 tablet by ity of B-6, 25 mg 00:00: mouth [place] tablet 00 the Medical morning Branch and 1 tablet at noon and 1 tablet in the evening. doxylamine Yes [id number] 25mg Take 1 [facility] nivers 25 mg 7-11 tablet by ity of tablet 00:00: mouth at [place] 00 bedtime. Medical Branch pyridoxine, Yes [id number] 25mg Take 1 [facility] VITAMIN 7-11 tablet by ity of B-6, 25 mg 00:00: mouth [place] tablet 00 the Medical morning Branch and 1 tablet at noon and 1 tablet in the evening. doxylamine Yes [id number] 25mg Take 1 [facility] nivers 25 mg 7-11 tablet by ity of tablet 00:00: mouth at [place] 00 bedtime. Medical Branch pyridoxine, Yes [id number] 25mg Take 1 [facility] VITAMIN 7-11 tablet by ity of B-6, 25 mg 00:00: mouth [place] tablet 00 the Medical morning Branch and 1 tablet at noon and 1 tablet in the evening. doxylamine Yes [id number] 25mg Take 1 [facility] nivers 25 mg 7-11 tablet by ity of tablet 00:00: mouth at [place] 00 bedtime. Medical Branch pyridoxine, 2021- No [id number] 25mg Take 1 [facility] VITAMIN 7-11 - tablet by ity of B-6, 25 mg 00:00: 00:00 mouth in [place] tablet 00 :00 the Medical morning Branch and 1 tablet at noon and 1 tablet in the evening. doxylamine 2021- No [id number] 25mg Take 1 [facility] 25 mg 7-11 - tablet by ity of tablet 00:00: 00:00 mouth at [place] 00 :00 bedtime. Medical Branch valACYclovi 2021- No [id number] 500mg Take 1 [facility] r (VALTREX) 7-11 - tablet by it y of 500 mg 00:00: 04:59 mouth in [place] tablet 00 :00 the Medical morning Branch and 1 tablet in the evening. Do all this for 10 days. valACYclovi 0 2021- No [id number] 500mg Take 1 [facility] r (VALTREX) 11-08 tablet by it y of 500 mg 00:00: 04:59 mouth in [place] tablet 00 :00 the Medical morning Branch and 1 tablet in the evening. Do all this for 10 days. 0 Yes Take by [facility] s vit,[place] 6-22 mouth. ity of 74/iron/fol 11:34: [facility] [place] [facility] 19 Medical ( Branch VITAMIN 1+1 ORAL) Yes Take by Univer s vit,[place] 6-22 mouth. ity of 74/iron/fol 11:34: [facility] [place] [facility] 19 Medical ( Branch VITAMIN 1+1 ORAL) Yes Take by Univer s vit,[place] 6-22 mouth. ity of 74/iron/fol 11:34: [facility] [place] [facility] 19 Medical ( Branch VITAMIN 1+1 ORAL) Yes Take by Univer s vit,[place] 6-22 mouth. ity of 74/iron/fol 11:34: [place] [address] Medical ( Branch VITAMIN 1+1 ORAL) Yes Take by Univer s vit,[place] 6-22 mouth. ity of 74/iron/fol 11:34: [place] [address] Medical ( Branch VITAMIN 1+1 ORAL) Yes Take by Univer s vit,[place] 6-22 mouth. ity of 74/iron/fol 11:34: [facility] [place] [facility] 19 Medical ( Branch VITAMIN 1+1 ORAL) Yes Take by Univer s vit,[place] 6-22 mouth. ity of 74/iron/fol 11:34: [facility] [place] [facility] 19 Medical ( Branch VITAMIN 1+1 ORAL) Yes Take by Univer s vit,[place] 6-22 mouth. ity of 74/iron/fol 11:34: [facility] [place] [facility] 19 Medical ( Branch VITAMIN 1+1 ORAL) Yes Take by Univer s vit,[place] 6-22 mouth. ity of 74/iron/fol 11:34: [facility] [place] [facility] 19 Medical ( Branch VITAMIN 1+1 ORAL) 0 Yes Take by Univer s vit,[place] 6-22 mouth. ity of 74/iron/fol 11:34: [place] [address] Medical ( Branch VITAMIN 1+1 ORAL) Yes Take by Univer s vit,[place] 6-22 mouth. ity of 74/iron/fol 11:34: [place] [address] Medical ( Branch VITAMIN 1+1 ORAL) Yes Take by Univer s vit,[place] 6-22 mouth. ity of 74/iron/fol 11:34: [place] [address] Medical ( Branch VITAMIN 1+1 ORAL) Yes Take by [facility]iver s vit,[place] 6-22 mouth. ity of 74/iron/fol 11:34: [place] [address] Medical ( Branch VITAMIN 1+1 ORAL) Yes Take by Univer s vit,[place] 6-22 mouth. ity of 74/iron/fol 11:34: [place] [address] Medical ( Branch VITAMIN 1+1 ORAL) Yes Take by [facility]iver s vit,[place] 6-22 mouth. ity of 74/iron/fol 11:34: [place] [address] Medical ( Branch VITAMIN 1+1 ORAL) Yes Take by [facility] vit,[place] 6-22 mouth. ity of 74/iron/fol 11:34: [place] [address] Medical ( Branch VITAMIN 1+1 ORAL) Yes Take by [facility]iver s vit,[place] 6-22 mouth. ity of 74/iron/fol 11:34: [place] [address] Medical ( Branch VITAMIN 1+1 ORAL) Yes Take by [facility]iver [facility] vit,[place] 6-22 mouth. ity of 74/iron/fol 11:34: [place] [address] Medical ( Branch VITAMIN 1+1 ORAL) Yes Take by [facility]iver s vit,[place] 6-22 mouth. ity of 74/iron/fol 11:34: [place] [address] Medical ( Branch VITAMIN 1+1 ORAL) Yes Take by Univer s vit,[place] 6-22 mouth. ity of 74/iron/fol 11:34: [place] [id number] [facility] ( Branch VITAMIN 1+1 ORAL) levomefolat 2017-0 Yes [id number] 7.5mg QD Take 7.5 Methodi e calcium 6-[address] (L-METHYLFO 00:00: mouth Hospi ta LATE) 7.5 00 daily. l mg tablet acyclovir 2015-05 Yes TAKE ONE Meth manuel (ZOVIRAX) 1-[address] 400 MG 00:00: [facility] 00 TWICE A l DAY Immunizations Ordered Filled Immunization Date Status Comments Sourc e Immunization Name Name [facility] 2022-04-15 Completed [facility] 00:00:00 [facility] 2022-04-15 Completed [facility] 00:00:00 [facility] 2022-04-15 Completed [facility] 00:00:00 [facility] 2022-04-15 Completed [facility] 00:00:00 [facility] 2022-04-15 Completed [facility] 00:00:00 [facility] 2013-01-14 Completed [facility] 00:00:00 [facility] 2013-01-14 Completed [facility] 00:00:00 [facility] 2013-01-14 Completed [facility] 00:00:00 [facility] 2013-01-14 Completed [facility] 00:00:00 [facility] 2013-01-14 Completed [facility] 00:00:00 [facility] 2013-01-14 Completed [facility] 00:00:00 [facility] 2013-01-14 Completed [facility] 00:00:00 [facility] 2013-01-14 Completed [facility] 00:00:00 [facility] 2013-01-14 Completed [facility] 00:00:00 [facility] 2013-01-14 Completed [facility] 00:00:00 [facility] 2013-01-14 Completed [facility] 00:00:00 [facility] 2013-01-14 Completed [facility] 00:00:00 [facility] 2013-01-14 Completed [facility] 00:00:00 [facility] 2013-01-14 Completed [facility] 00:00:00 [facility] 2013-01-14 Completed [facility] 00:00:00 [facility] 2013-01-14 Completed [facility] 00:00:00 [facility] 2013-01-14 Completed [facility] 00:00:00 [facility] 2013-01-14 Completed [facility] 00:00:00 [facility] 2013-01-14 Completed [facility] 00:00:00 [facility] TDAP 2013-01-14 Completed [facility] 00:00:00 [facility] TDAP 2013-01-14 Completed [facility] 00:00:00 [facility] TDAP 2013-01-14 Completed [facility] 00:00:00 [facility] TDAP 2013-01-14 Completed [facility] 00:00:00 [facility] TDAP 2013-01-14 Completed [facility] 00:00:00 [facility] TDAP 2013-01-14 Completed [facility] 00:00:00 [facility] TDAP 2013-01-14 Completed [facility] 00:00:00 [facility] TDAP 2013-01-14 Completed [facility] 00:00:00 [facility] TDAP 2013-01-14 Completed [facility] 00:00:00 [facility] TDAP 2013-01-14 Completed [facility] 00:00:00 [facility] TDAP 2013-01-14 Completed [facility] 00:00:00 [facility] TDAP 2013-01-14 Completed [facility] 00:00:00 [facility] TDAP 2013-01-14 Completed [facility] 00:00:00 [facility] TDAP 2013-01-14 Completed [facility] 00:00:00 [facility] TDAP 2013-01-14 Completed [facility] 00:00:00 [facility] TDAP 2013-01-14 Completed [facility] 00:00:00 [facility] TDAP 2013-01-14 Completed [facility] 00:00:00 [facility] TDAP 2013-01-14 Completed [facility] 00:00:00 [facility] TDAP 2013-01-14 Completed [facility] 00:00:00 [facility] TDAP 2013-01-14 Completed [facility] 00:00:00 [facility] TDAP 2013-01-14 Completed [facility] 00:00:00 [facility] TDAP 2013-01-14 Completed [facility] 00:00:00 [facility] TDAP 2013-01-14 Completed [facility] 00:00:00 [facility] TDAP 2013-01-14 Completed [facility] 00:00:00 [facility] HPV 2011-01-25 Completed [facility] 00:00:00 [facility] HPV 2011-01-25 Completed [facility] 00:00:00 [facility] HPV 2011-01-25 Completed [facility] 00:00:00 [facility] HPV 2011-01-25 Completed [facility] 00:00:00 [facility] HPV 2011-01-25 Completed [facility] 00:00:00 [facility] HPV 2011-01-25 Completed [facility] 00:00:00 [facility] HPV 2011-01-25 Completed [facility] 00:00:00 [facility] HPV 2011-01-25 Completed [facility] 00:00:00 [facility] HPV 2011-01-25 Completed [facility] 00:00:00 [facility] HPV 2011-01-25 Completed [facility] 00:00:00 [facility] HPV 2011-01-25 Completed [facility] 00:00:00 [facility] HPV 2011-01-25 Completed [facility] 00:00:00 [facility] HPV 2011-01-25 Completed [facility] 00:00:00 [facility] HPV 2011-01-25 Completed [facility] 00:00:00 [facility] HPV 2011-01-25 Completed [facility] 00:00:00 [facility] HPV 2011-01-25 Completed [facility] 00:00:00 [facility] HPV 2011-01-25 Completed [facility] 00:00:00 [facility] HPV 2011-01-25 Completed [facility] 00:00:00 [facility] HPV 2011-01-25 Completed [facility] 00:00:00 [facility] HPV 2011-01-25 Completed [facility] 00:00:00 [facility] HPV 2011-01-25 Completed [facility] 00:00:00 [facility] HPV 2011-01-25 Completed [facility] 00:00:00 [facility] HPV 2011-01-25 Completed [facility] 00:00:00 [facility] HPV 2011-01-25 Completed [facility] 00:00:00 [facility] HPV 2011-01-25 Completed [facility] 00:00:00 [facility] HPV 2011-01-25 Completed [facility] 00:00:00 [facility] HPV 2011-01-25 Completed [facility] 00:00:00 [facility] HPV 2011-01-25 Completed [facility] 00:00:00 [facility] HPV 2011-01-25 Completed [facility] 00:00:00 [facility] HPV 2011-01-25 Completed [facility] 00:00:00 [facility] HPV 2011-01-25 Completed [facility] 00:00:00 [facility] HPV 2011-01-25 Completed [facility] 00:00:00 [facility] HPV 2011-01-25 Completed [facility] 00:00:00 [facility] HPV 2011-01-25 Completed [facility] of 00:00:00 [facility] HPV 2011-01-25 Completed [facility] 00:00:00 [facility] HPV 2011-01-25 Completed [facility] 00:00:00 [facility] HPV 2011-01-25 Completed [facility] 00:00:00 [facility] HPV 2011-01-25 Completed [facility] 00:00:00 [facility] HPV 2011-01-25 Completed [facility] 00:00:00 [facility] HPV 2011-01-25 Completed [facility] 00:00:00 [facility] HPV 2011-01-25 Completed [facility] 00:00:00 [facility] HPV 2011-01-25 Completed [facility] 00:00:00 [facility] HPV 2011-01-25 Completed [facility] 00:00:00 [facility] Varicella 2010-04-28 Completed [facility] of (varivax)(chicken 00:00:00 [place] [facility] pox[facility] [place] Influenza Virus 2010-04-28 Completed Universit y of Vaccine 00:00:00 [facility] Rubella 2010-04-28 Completed [facility] 00:00:00 [facility] Varicella 2010-04-28 Completed [facility] (varivax)(chicken 00:00:00 [place] [facility] pox[facility] Influenza Virus 2010-04-28 Completed Universit y of Vaccine 00:00:00 [facility] Rubella 2010-04-28 Completed [facility] 00:00:00 [facility] Varicella 2010-04-28 Completed [facility] (varivax)(chicken 00:00:00 [place] [facility] pox) [facility] Influenza Virus 2010-04-28 Completed Universit y of Vaccine 00:00:00 [facility] Rubella 2010-04-28 Completed [facility] of 00:00:00 [facility] Varicella 2010-04-28 Completed [facility] of (varivax)(chicken 00:00:00 [facility] edical pox) Branch Influenza Virus 2010-04-28 Completed Universit y of Vaccine 00:00:00 [facility] Rubella 2010-04-28 Completed [facility] 00:00:00 [facility] Varicella 2010-04-28 Completed [facility] (varivax)(chicken 00:00:00 [place] [facility] pox) Tina Influenza Virus 2010-04-28 Completed Universit y of Vaccine 00:00:00 [facility] Rubella 2010-04-28 Completed [facility] 00:00:00 [facility] Varicella 2010-04-28 Completed [facility] (varivax)(chicken 00:00:00 [place] [facility] pox) Tina Influenza Virus 2010-04-28 Completed Universit y of Vaccine 00:00:00 [facility] Rubella 2010-04-28 Completed [facility] 00:00:00 [facility] Varicella 2010-04-28 Completed [facility] (varivax)(chicken 00:00:00 [place] [facility] pox) Tina Influenza Virus 2010-04-28 Completed Universit y of Vaccine 00:00:00 [facility] Rubella 2010-04-28 Completed [facility] of 00:00:00 [facility] Varicella 2010-04-28 Completed [facility] of (varivax)(chicken 00:00:00 [facility] edical pox) Tina Influenza Virus 2010-04-28 Completed Universit y of Vaccine 00:00:00 [facility] Rubella 2010-04-28 Completed [facility] of 00:00:00 [facility] Varicella 2010-04-28 Completed [facility] of (varivax)(chicken 00:00:00 [facility] edical pox) Tina Influenza Virus 2010-04-28 Completed Universit y of Vaccine 00:00:00 [facility] Rubella 2010-04-28 Completed [facility] of 00:00:00 [facility] Varicella 2010-04-28 Completed [facility] of (varivax)(chicken 00:00:00 [facility] edical pox) Tina Influenza Virus 2010-04-28 Completed Universit y of Vaccine 00:00:00 [facility] Rubella 2010-04-28 Completed [facility] 00:00:00 [facility] Varicella 2010-04-28 Completed [facility] (varivax)(chicken 00:00:00 [place] [facility] pox[facility] Influenza Virus 2010-04-28 Completed Universit y of Vaccine 00:00:00 [facility] Rubella 2010-04-28 Completed [facility] of 00:00:00 [facility] Varicella 2010-04-28 Completed [facility] of (varivax)(chicken 00:00:00 [facility] edical pox) Tina Influenza Virus 2010-04-28 Completed Universit y of Vaccine 00:00:00 [facility] Rubella 2010-04-28 Completed [facility] 00:00:00 [facility] Varicella 2010-04-28 Completed [facility] (varivax)(chicken 00:00:00 [place] [facility] pox) Tina Influenza Virus 2010-04-28 Completed Universit y of Vaccine 00:00:00 [facility] Rubella 2010-04-28 Completed [facility] 00:00:00 [facility] Varicella 2010-04-28 Completed [facility] (varivax)(chicken 00:00:00 [place] [facility] pox) Tina Influenza Virus 2010-04-28 Completed Universit y of Vaccine 00:00:00 [facility] Rubella 2010-04-28 Completed [facility] 00:00:00 [facility] Varicella 2010-04-28 Completed [facility] (varivax)(chicken 00:00:00 [place] [facility] pox) Tina Influenza Virus 2010-04-28 Completed Universit y of Vaccine 00:00:00 [facility] Rubella 2010-04-28 Completed [facility] 00:00:00 [facility] Varicella 2010-04-28 Completed [facility] (varivax)(chicken 00:00:00 [place] [facility] pox) Tina Influenza Virus 2010-04-28 Completed Universit y of Vaccine 00:00:00 [facility] Rubella 2010-04-28 Completed [facility] 00:00:00 [facility] Varicella 2010-04-28 Completed [facility] (varivax)(chicken 00:00:00 [place] [facility] pox) Tina Influenza Virus 2010-04-28 Completed Universit y of Vaccine 00:00:00 [facility] Rubella 2010-04-28 Completed [facility] 00:00:00 [facility] Varicella 2010-04-28 Completed [facility] (varivax)(chicken 00:00:00 [place] [facility] pox) Tina Influenza Virus 2010-04-28 Completed Universit y of Vaccine 00:00:00 [facility] Rubella 2010-04-28 Completed [facility] of 00:00:00 [facility] Varicella 2010-04-28 Completed [facility] of (varivax)(chicken 00:00:00 [facility] edical pox) Tina Influenza Virus 2010-04-28 Completed Universit y of Vaccine 00:00:00 [facility] Rubella 2010-04-28 Completed [facility] 00:00:00 [facility] Varicella 2010-04-28 Completed [facility] (varivax)(chicken 00:00:00 [place] [facility] pox) Tina Influenza Virus 2010-04-28 Completed Universit y of Vaccine 00:00:00 [facility] Rubella 2010-04-28 Completed [facility] 00:00:00 [facility] Varicella 2010-04-28 Completed [facility] (varivax)(chicken 00:00:00 [place] [facility] pox) [facility] Influenza Virus 2010-04-28 Completed Universit y of Vaccine 00:00:00 [facility] Rubella 2010-04-28 Completed [facility] 00:00:00 [facility] Varicella 2010-04-28 Completed [facility] (varivax)(chicken 00:00:00 [place] [facility] pox) Tina Influenza Virus 2010-04-28 Completed Universit y of Vaccine 00:00:00 [facility] Rubella 2010-04-28 Completed [facility] of 00:00:00 [facility] Varicella 2010-04-28 Completed [facility] of (varivax)(chicken 00:00:00 [facility] edical pox) Tina Influenza Virus 2010-04-28 Completed Universit y of Vaccine 00:00:00 [facility] Rubella 2010-04-28 Completed [facility] 00:00:00 [facility] Varicella 2010-04-28 Completed [facility] (varivax)(chicken 00:00:00 [place] [facility] pox[facility] Influenza Virus 2010-04-28 Completed Universit y of Vaccine 00:00:00 [facility] Rubella 2010-04-28 Completed [facility] 00:00:00 [facility] Varicella 2010-04-28 Completed [facility] (varivax)(chicken 00:00:00 [place] [facility] pox) [facility] Influenza Virus 2010-04-28 Completed Universit y of Vaccine 00:00:00 [facility] Rubella 2010-04-28 Completed [facility] 00:00:00 [facility] Varicella 2010-04-28 Completed [facility] (varivax)(chicken 00:00:00 [place] [facility] pox) [facility] Influenza Virus 2010-04-28 Completed Universit y of Vaccine 00:00:00 [facility] Rubella 2010-04-28 Completed [facility] of 00:00:00 [facility] Varicella 2010-04-28 Completed [facility] of (varivax)(chicken 00:00:00 [facility] edical pox) Tina Influenza Virus 2010-04-28 Completed Universit y of Vaccine 00:00:00 [facility] Rubella 2010-04-28 Completed [facility] 00:00:00 [facility] Varicella 2010-04-28 Completed [facility] (varivax)(chicken 00:00:00 [place] [facility] pox) Tina Influenza Virus 2010-04-28 Completed Universit y of Vaccine 00:00:00 [facility] Rubella 2010-04-28 Completed [facility] 00:00:00 [facility] Varicella 2010-04-28 Completed [facility] (varivax)(chicken 00:00:00 [place] [facility] pox) Tina Influenza Virus 2010-04-28 Completed Universit y of Vaccine 00:00:00 [facility] Rubella 2010-04-28 Completed [facility] of 00:00:00 [facility] Varicella 2010-04-28 Completed [facility] of (varivax)(chicken 00:00:00 [facility] edical pox) Tina Influenza Virus 2010-04-28 Completed Universit y of Vaccine 00:00:00 [facility] Rubella 2010-04-28 Completed [facility] of 00:00:00 [facility] Varicella 2010-04-28 Completed [facility] of (varivax)(chicken 00:00:00 [facility] edical pox) Tina Influenza Virus 2010-04-28 Completed Universit y of Vaccine 00:00:00 [facility] Rubella 2010-04-28 Completed [facility] of 00:00:00 [facility] Varicella 2010-04-28 Completed [facility] of (varivax)(chicken 00:00:00 [facility] edical pox) Tina Influenza Virus 2010-04-28 Completed Universit y of Vaccine 00:00:00 [facility] Rubella 2010-04-28 Completed [facility] 00:00:00 [facility] Varicella 2010-04-28 Completed [facility] (varivax)(chicken 00:00:00 [place] [facility] pox) Tina Influenza Virus 2010-04-28 Completed [facility]it y of Vaccine 00:00:00 [facility] Rubella 2010-04-28 Completed [facility] of 00:00:00 [facility] Varicella 2010-04-28 Completed [facility] of (varivax)(chicken 00:00:00 [facility] edical pox) Tina Influenza Virus 2010-04-28 Completed Universit y of Vaccine 00:00:00 [facility] Rubella 2010-04-28 Completed [facility] 00:00:00 [facility] Varicella 2010-04-28 Completed [facility] (varivax)(chicken 00:00:00 [place] [facility] pox) Tina Influenza Virus 2010-04-28 Completed Universit y of Vaccine 00:00:00 [facility] Rubella 2010-04-28 Completed [facility] of 00:00:00 [facility] Varicella 2010-04-28 Completed [facility] (varivax)(chicken 00:00:00 [place] [facility] pox) [facility] Influenza Virus 2010-04-28 Completed Universit y of Vaccine 00:00:00 [facility] Rubella 2010-04-28 Completed [facility] of 00:00:00 [facility] Varicella 2010-04-28 Completed [facility] (varivax)(chicken 00:00:00 [place] [facility] pox) Branch Influenza Virus 2010-04-28 Completed Universit y of Vaccine 00:00:00 [facility] Rubella 2010-04-28 Completed [facility] 00:00:00 [facility] Varicella 2010-04-28 Completed [facility] (varivax)(chicken 00:00:00 [place] [facility] pox) Tina Influenza Virus 2010-04-28 Completed Universit y of Vaccine 00:00:00 [facility] Rubella 2010-04-28 Completed [facility] of 00:00:00 [facility] Varicella 2010-04-28 Completed [facility] (varivax)(chicken 00:00:00 [place] [facility] pox) [facility] Influenza Virus 2010-04-28 Completed Universit y of Vaccine 00:00:00 [facility] Rubella 2010-04-28 Completed [facility] of 00:00:00 [facility] Varicella 2010-04-28 Completed [facility] of (varivax)(chicken 00:00:00 [facility] edical pox) Branch Influenza Virus 2010-04-28 Completed Universit y of Vaccine 00:00:00 [facility] Rubella 2010-04-28 Completed [facility] of 00:00:00 [facility] Varicella 2010-04-28 Completed [facility] (varivax)(chicken 00:00:00 [place] [facility] pox) [facility] Influenza Virus 2010-04-28 Completed Universit y of Vaccine 00:00:00 [facility] Rubella 2010-04-28 Completed [facility] of 00:00:00 [facility] Varicella 2010-04-28 Completed [facility] of (varivax)(chicken 00:00:00 [facility] edical pox) Tina Influenza Virus 2010-04-28 Completed Universit y of Vaccine 00:00:00 [facility] Rubella 2010-04-28 Completed [facility] of 00:00:00 [facility] Varicella 2010-04-28 Completed [facility] of (varivax)(chicken 00:00:00 [facility] edical pox) Branch Influenza Virus 2010-04-28 Completed Universit y of Vaccine 00:00:00 [facility] Rubella 2010-04-28 Completed [facility] of 00:00:00 [facility] Td 2003-01-03 Completed [facility] of 00:00:00 [facility] Td 2003-01-03 Completed [facility] of 00:00:00 [facility] TD, NOS 2003-01-03 Completed [facility] 00:00:00 [facility] TD, NOS 2003-01-03 Completed [facility] of 00:00:00 [facility] TD, NOS 2003-01-03 Completed [facility] of 00:00:00 [facility] Td 2003-01-03 Completed [facility] of 00:00:00 [facility] Td 2003-01-03 Completed [facility] of 00:00:00 [facility] Td 2003-01-03 Completed [facility] of 00:00:00 [facility] Td 2003-01-03 Completed [facility] of 00:00:00 [facility] Td 2003-01-03 Completed [facility] of 00:00:00 [facility] Td 2003-01-03 Completed [facility] of 00:00:00 [facility] Td 2003-01-03 Completed [facility] of 00:00:00 [facility] Td 2003-01-03 Completed [facility] 00:00:00 [facility] Td 2003-01-03 Completed [facility] 00:00:00 [facility] Td 2003-01-03 Completed [facility] of 00:00:00 [facility] Td 2003-01-03 Completed [facility] of 00:00:00 [facility] Td 2003-01-03 Completed [facility] 00:00:00 [facility] Td 2003-01-03 Completed [facility] 00:00:00 [facility] Td 2003-01-03 Completed [facility] 00:00:00 [facility] Td 2003-01-03 Completed [facility] of 00:00:00 [facility] Td 2003-01-03 Completed [facility] 00:00:00 [facility] Td 2003-01-03 Completed [facility] 00:00:00 [facility] Td 2003-01-03 Completed [facility] 00:00:00 [facility] Td 2003-01-03 Completed [facility] 00:00:00 [facility] Td 2003-01-03 Completed [facility] 00:00:00 [facility] Td 2003-01-03 Completed [facility] 00:00:00 [facility] Td 2003-01-03 Completed [facility] 00:00:00 [facility] Td 2003-01-03 Completed [facility] 00:00:00 [facility] Td 2003-01-03 Completed [facility] 00:00:00 [facility] Td 2003-01-03 Completed [facility] 00:00:00 [facility] Td 2003-01-03 Completed [facility] 00:00:00 [facility] Td 2003-01-03 Completed [facility] 00:00:00 [facility] Td 2003-01-03 Completed [facility] 00:00:00 [facility] Td 2003-01-03 Completed [facility] 00:00:00 [facility] Td 2003-01-03 Completed [facility] 00:00:00 [facility] Td 2003-01-03 Completed [facility] 00:00:00 [facility] Td 2003-01-03 Completed [facility] 00:00:00 [facility] Td 2003-01-03 Completed [facility] 00:00:00 [facility] Td 2003-01-03 Completed [facility] 00:00:00 [facility] Td 2003-01-03 Completed [facility] 00:00:00 [facility] Td 2003-01-03 Completed [facility] 00:00:00 [facility] Td 2003-01-03 Completed [facility] 00:00:00 [facility] Td 2003-01-03 Completed [facility] 00:00:00 [facility] Vital Signs Vital Name Observation Time Observation Value Comments Source Systolic blood 2022-04-28 21:03:00 117 mm[Hg] Univer sity of pressure [facility] Diastolic blood 2022-04-28 21:03:00 73 mm[Hg] Unive rsity of pressure [facility] Heart rate 2022-04-28 21:03:00 90 /min [facility] Body temperature 2022-04-28 21:03:00 37.17 [facility] 2022-04-28 21:03:00 17 /min [facility] 2022-04-28 21:03:00 162.6 cm [facility] Body weight 2022-04-28 21:03:00 88.814 kg [facility] BMI 2022-04-28 21:03:00 33.61 kg/m2 [facility] [place] [facility] Systolic blood 2022-04-15 15:45:00 126 mm[Hg] Univer [facility]ity [facility] Diastolic blood 2022-04-15 15:45:00 76 mm[Hg] Unive rsity of [facility] Heart rate 2022-04-15 15:45:00 101 /min [facility] Body temperature 2022-04-15 15:45:00 36.72 Marla [facility] [place] [facility] Respiratory rate 2022-04-15 15:45:00 18 /min [facility] [place] [facility] Body height 2022-04-15 15:45:00 162.6 cm [facility] [place] [facility] Body weight 2022-04-15 15:45:00 89.926 kg [facility] [place] [facility] BMI 2022-04-15 15:45:00 34.03 kg/m2 [facility] [place] [facility] Systolic blood 2022-04-07 00:30:00 117 mm[Hg] [facility] Diastolic blood 2022-04-07 00:30:00 67 mm[Hg] Unive rsity [facility] Heart rate 2022-04-07 00:30:00 91 /min [facility] Oxygen saturation in 2022-04-07 00:30:00 100 /min University of Arterial blood by [facility] Pulse oximetry Branch Body temperature 2022-04-06 23:30:00 36.67 Marla Univ ersity of [facility] Respiratory rate 2022-04-06 23:30:00 18 /min [facility] [place] [facility] Body height 2022-04-06 23:30:00 162.6 cm [facility] [place] [facility] Body weight 2022-04-06 23:30:00 87.998 kg [facility] [place] [facility] BMI 2022-04-06 23:30:00 33.28 kg/m2 [facility] [place] [facility] Systolic blood 2022-04-01 17:49:00 111 mm[Hg] [facility] Diastolic blood 2022-04-01 17:49:00 76 mm[Hg] [facility] Heart rate 2022-04-01 17:49:00 77 /min [facility] [place] [facility] Body temperature 2022-04-01 17:49:00 36.61 Marla [facility] [place] [facility] Respiratory rate 2022-04-01 17:49:00 18 /min [facility] [place] [facility] Body height 2022-04-01 17:49:00 162.6 cm [facility] [place] [facility] Body weight 2022-04-01 17:49:00 86.546 kg [facility] [place] [facility] BMI 2022-04-01 17:49:00 32.75 kg/m2 [facility] [place] [facility] Systolic blood 2022-03-30 21:25:00 124 mm[Hg] [facility] Diastolic blood 2022-03-30 21:25:00 70 mm[Hg] [facility] [place] [facility] Heart rate 2022-03-30 21:25:00 80 /min Universi ty of [facility] Oxygen saturation in 2022-03-30 21:25:00 100 /min University Arterial blood by [facility] Pulse oximetry Branch Respiratory rate 2022-03-30 21:00:00 18 /min [facility] [place] [facility] Body temperature 2022-03-30 18:49:00 36.5 Marla [facility] [place] [facility] Body height 2022-03-30 18:49:00 162.6 cm [facility] [place] [facility] Body weight 2022-03-30 18:49:00 84.369 kg [facility] [place] [facility] BMI 2022-03-30 18:49:00 31.93 kg/m2 [facility] [place] [facility] Systolic blood 2022-02-25 19:14:00 116 mm[Hg] [facility] Diastolic blood 2022-02-25 19:14:00 75 mm[Hg] Unive [facility] Heart rate 2022-02-25 19:14:00 92 /min [facility] [place] [facility] Body temperature 2022-02-25 19:14:00 36.72 Marla Univ [facility] Respiratory rate 2022-02-25 19:14:00 18 /min [facility] [place] [facility] Body height 2022-02-25 19:14:00 165.1 cm [facility] Body weight 2022-02-25 19:14:00 84.369 kg [facility] BMI 2022-02-25 19:14:00 30.95 kg/m2 [facility] Systolic blood 2022-02-15 22:45:00 120 mm[Hg] [facility] Diastolic blood 2022-02-15 22:45:00 71 mm[Hg] [facility] Heart rate 2022-02-15 22:45:00 78 /min [facility] [place] [facility] Oxygen saturation in 2022-02-15 22:45:00 100 /min University Arterial blood by [facility] Pulse oximetry Branch Systolic blood 2022-02-15 20:59:00 126 mm[Hg] [facility] Diastolic blood 2022-02-15 20:59:00 83 mm[Hg] Unive rsity of pressure [facility] Heart rate 2022-02-15 20:59:00 90 /min [facility] [place] [facility] Body temperature 2022-02-15 20:59:00 36.78 Marla [facility] [place] [facility] Body weight 2022-02-15 20:59:00 82.101 kg [facility] [place] [facility] BMI 2022-02-15 20:59:00 30.12 kg/m2 [facility] [place] [facility] Respiratory rate 2022-02-15 20:59:00 16 /min Univ ersity of [facility] Systolic blood 2022-02-02 15:01:00 122 mm[Hg] Univer sity of pressure [facility] Diastolic blood 2022-02-02 15:01:00 74 mm[Hg] Unive rsity of pressure [facility] Heart rate 2022-02-02 15:01:00 90 /min [facility] [place] [facility] Body temperature 2022-02-02 15:01:00 36.67 Marla Univ [facility] Respiratory rate 2022-02-02 15:01:00 18 /min Univ ersity of [facility] Body height 2022-02-02 15:01:00 165.1 cm [facility] Body weight 2022-02-02 15:01:00 81.194 kg [facility] [place] [facility] BMI 2022-02-02 15:01:00 29.79 kg/m2 [facility] Systolic blood 2022-01-13 16:53:00 113 mm[Hg] [facility] Diastolic blood 2022-01-13 16:53:00 80 mm[Hg] Unive [facility] Heart rate 2022-01-13 16:53:00 78 /min [facility] Body temperature 2022-01-13 16:53:00 36.67 Marla [facility] [place] [facility] Body height 2022-01-13 16:53:00 165.1 cm [facility] Body weight 2022-01-13 16:53:00 78.2 kg [facility] BMI 2022-01-13 16:53:00 28.69 kg/m2 Universi ty of [facility] Body temperature 2022-01-05 22:55:00 37.83 Marla Univ [facility] of [facility] Systolic blood 2022-01-05 22:30:00 101 mm[Hg] [facility] Diastolic blood 2022-01-05 22:30:00 70 mm[Hg] Unive rsity of pressure [facility] Heart rate 2022-01-05 22:30:00 89 /min Universi ty of [facility] Respiratory rate 2022-01-05 22:30:00 18 /min Univ ersity of [facility] Oxygen saturation in 2022-01-05 22:30:00 100 /min University of Arterial blood by [facility] Pulse oximetry Branch Body height 2022-01-05 19:45:00 165.1 cm [facility] Body weight 2022-01-05 19:45:00 79.379 kg [facility] BMI 2022-01-05 19:45:00 29.12 kg/m2 [facility] [place] [facility] Systolic blood 2022-01-04 16:46:00 113 mm[Hg] [facility] Diastolic blood 2022-01-04 16:46:00 74 mm[Hg] Unive rsity of pressure [facility] Heart rate 2022-01-04 16:46:00 89 /min [facility] Body temperature 2022-01-04 16:46:00 36.72 Marla [facility] Respiratory rate 2022-01-04 16:46:00 16 /min [facility] Body height 2022-01-04 16:46:00 162.6 cm [facility] Body weight 2022-01-04 16:46:00 79.379 kg [facility] BMI 2022-01-04 16:46:00 30.04 kg/m2 [facility] Oxygen saturation in 2022-01-04 16:46:00 100 /min [facility] blood by [place] [employer] [facility] Pulse oximetry Branch Systolic blood 2021-12-06 16:35:00 125 mm[Hg] [facility] Diastolic blood 2021-12-06 16:35:00 79 mm[Hg] [facility] Heart rate 2021-12-06 16:35:00 92 /min [facility] Body temperature 2021-12-06 16:35:00 36.72 Marla [facility] [place] [facility] Respiratory rate 2021-12-06 16:35:00 17 /min [facility] [place] [facility] Body height 2021-12-06 16:35:00 162.6 cm [facility] Body weight 2021-12-06 16:35:00 75.66 kg [facility] BMI 2021-12-06 16:35:00 28.63 kg/m2 [facility] Oxygen saturation in 2021-11-08 14:49:00 99 /min University of Arterial blood by [employer] Pulse oximetry Branch Systolic blood 2021-11-08 14:49:00 118 mm[Hg] [facility] Diastolic blood 2021-11-08 14:49:00 83 mm[Hg] [facility]ive [facility] Heart rate 2021-11-08 14:49:00 80 /min [facility] Respiratory rate 2021-11-08 14:49:00 18 /min [facility] Body height 2021-11-08 14:49:00 162.6 cm [facility] Body weight 2021-11-08 14:49:00 73.936 kg [facility] BMI 2021-11-08 14:49:00 27.98 kg/m2 [facility] Procedures Procedure Date / Time Performing Clinician Source Performed POCT URINALYSIS W/O 2022-04-28 21:35:00 Adum, Camila Prieto [facility] TDAP VACCINE, >11 YRS, 2022-04-15 15:42:38 Adum, Camila John [facility] POCT URINALYSIS W/O 2022-04-15 15:42:00 Adum, Camila Prieto [facility] 2 HR GLUCOSE TOLERANCE 2022-04-14 16:30:00 Adum, Camila John [facility] 1 HR GLUCOSE TOLERANCE 2022-04-14 15:30:00 Adum, Camila John [facility] GLUCOSE FASTING 2022-04-14 14:25:00 Adum, Camila Prieto [facility] SGOT (ASPARTATE AMINO 2022-04-06 23:52:00 Adum, Camila Prieto [facility] TRANSFER) Medical Branch CREATININE 2022-04-06 23:52:00 Adum, Camila Prieto [facility] ALANINE AMINO 2022-04-06 23:52:00 Adum, Camila Prieto [facility] TRANSFERASE(SGPT Medical Tina LACTATE DEHYDROGENASE 2022-04-06 23:52:00 Adum, Camila Prieto [facility] URIC ACID 2022-04-06 23:52:00 Adum, Camila Prieto [facility] CBC WITH DIFF 2022-04-06 23:52:00 Adum, Camila Prieto [facility] CONSENT/REFUSAL FOR 2022-04-06 23:08:02 Doctor Unassigned, No [facility] DIAGNOSIS AND TREATMENT Name Medical Branch ASSIGNMENT OF BENEFITS 2022-04-06 23:07:49 Doctor Unassigned, No [facility] Name [facility] GLUCOSE 1 HOUR POST 2022-04-04 15:55:00 Adum, Camila Prieto [facility] POCT URINALYSIS W/O 2022-04-01 00:00:00 Adum, Camila Prieto [facility] SPECIFIC GRAVITY Medical Branch URINALYSIS 2022-03-30 21:48:00 Adum, Camila Prieto [place] [facility] ADC ONLY - FERN TEST 2022-03-30 21:48:00 Adum, Camila Prieto [facility] CT CHEST PULMONARY 2022-03-30 20:43:33 Natacha Leo [facility] ANGIOGRAM Medical Branch EKG-12 LEAD 2022-03-30 19:46:14 Natacha Leo [facility] TROPONIN I 2022-03-30 19:23:00 Natacha Leo [facility] COMP. METABOLIC PANEL 2022-03-30 19:23:00 Natacha Leo [facility] ([id number]) Medical Branch CBC WITH DIFF 2022-03-30 19:23:00 Natacha Leo [facility] RAPID INFLUENZA A/B 2022-03-30 19:23:00 Natacha Leo [facility] COVID-19 (ID NOW RAPID 2022-03-30 19:23:00 Natacha Leo [facility] TESTING) Medical Branch XR CHEST 1 VW 2022-03-30 19:12:14 Natacha Leo [facility] CONSENT/REFUSAL FOR 2022-03-30 18:35:48 Doctor Unassigned, No Un [facility] DIAGNOSIS AND TREATMENT Name Medical Branch SECOND AND THIRD 2022-03-03 19:56:00 Anton Magda [facility] TRIMESTER ULTRASOUND Medical Bra [facility] SECOND AND THIRD 2022-03-03 19:47:00 Anton Magda [facility] TRIMESTER ULTRASOUND Medical Bra [facility] POCT URINALYSIS W/O 2022-02-25 19:17:00 Adum, Camila Prieto [facility] SPECIFIC GRAVITY Medical Branch POCT URINALYSIS W/O 2022-02-15 22:22:00 Annie Herrera [facility] SPECIFIC GRAVITY Medical Branch SGOT (ASPARTATE AMINO 2022-02-15 21:51:00 Adum, Camila Prieto [facility] TRANSFER) Medical Branch CREATININE 2022-02-15 21:51:00 Adum, Camila Ida [facility] ALANINE AMINO 2022-02-15 21:51:00 Adum, Camila Ida [facility] TRANSFERASE(SGPT Medical Branch LACTATE DEHYDROGENASE 2022-02-15 21:51:00 Adum, [facility] URIC ACID 2022-02-15 21:51:00 Adum, Camila Ida [facility] CBC WITH DIFF 2022-02-15 21:51:00 Adum, [facility] CONSENT/REFUSAL FOR 2022-02-15 20:51:44 Doctor Unassigned, No [facility]REAT[facility] Name Medical Branch ASSIGNMENT OF BENEFITS 2022-02-15 20:50:56 Doctor Unassigned, No [facility] POCT URINALYSIS W/O 2022-02-02 00:00:00 Adum, Camila [facility] SPECIFIC [facility] Branch URINALYSIS 2022-01-05 22:21:00 Pro Kelsey [facility] RAPID STREP SCREEN FOR 2022-01-05 20:05:00 [facility] GROUP A Medical Branch COVID-19 (ID NOW RAPID 2022-01-05 20:05:00 Pro Kelsey [facility] TESTING) Medical Branch NOTICE OF PRIVACY 2022-01-05 19:35:40 Doctor Unassigned, No [facility] Medical Branch CONSENT/REFUSAL FOR 2022-01-05 19:35:03 Doctor Unassigned, No [facility] DI[facility]REATMENT Name Medical Branch POCT URINALYSIS W/O 2022-01-04 00:00:00 Magda Walton [facility] SPECIFIC GRAVITY Medical Branch CBC WITH DIFF 2021-12-06 19:19:00 Magda Walton [facility] POCT URINALYSIS W/O 2021-12-06 16:36:00 Magda Walton [facility] SPECIFIC GRAVITY Medical Branch <14 WEEKS US 2021-11-08 16:14:25 [facility] POCT URINALYSIS 2021-11-08 14:59:00 Fish Magda [place] [facility] ULTRASOUND 2021-11-08 05:01:00 Doctor Unassigned, No [facility] Plan of Care Planned Activity Planned Date Details Comments Source Future Scheduled 2022-04-22 COVID-19 [facility]ACCINE [facility] 02:08:20 (#1) [code = COVID-19 VACCINE (#1)] Future Scheduled 2022-04-22 [facility] 02:08:20 malignant neoplasm of cervix (procedure) [code = 477831564] Future Scheduled 2022-04-22 INFLUENZA VACCINE [facility] 02:08:20 [code = INFLUENZA VACCINE] Encounters Start End Encounter Admission Attending Care Care Encounter Source Date/Time Date/Time Type Type Clinicians Facility Department ID 2022-04-06 Emergency X [facility] [id number] [facility] 2022-02-15 Outpatient P [facility] MICHELE [id number] [facility] 18:40:[facility] 2020-07-13 Inpatient HCAPM HCAPM [id number] [facility] 13:05:26 58 [facility] 2022-05-04 2022-05-04 Outpatient P [facility] [id number] Univers 08:00:00 08:00:00 [facility] 2022-04-29 2022-04-29 Outpatient R ADUM, [facility] [id number] Univers 09:45:00 09:45:00 CAMILA [facility] 2022-04-28 2022-04-28 Outpatient R ADUM, [facility] [id number] Univers 15:00:00 15:59:34 [facility] 2022-04-28 2022-04-28 Routine Adum, [facility] 1.2.840.114 [id number] Univers 15:00:00 15:59:34 Camila [place] 350.1.13.10 ity of Visit [facility] 4.2.7.2.686 Nicolas POWELL [id number] [place] dic[address] 2022-04-28 2022-04-28 Letter Clinic, [facility] 1.2.840.114 [id number] Univers 00:00:00 00:00:00 (Out) [facility] HEALTH 350.1.13.10 it y of Neurology [place].2.[place] DONALDS [id number] [facility] MEDICAL 092 Branch [facility] 2022-04-27 2022-04-27 Telephone Ad, [facility] [id number] Univers 00:00:00 00:00:00 Camila Ida [place] 350.1.13.10 it[place] [id number] [place] dical NAL [address] [facility] 2022-04-15 2022-04-15 Routine Adum, [facility] 1.2.840.114 [id number] Univers 09:30:00 10:56:29 Camila Ida [place] 350.1.13.10 ity of Visit [place] [id number] [place] dical NAL 134 [facility] 2022-04-15 2022-04-15 [facility] [id number] Univers 09:30:00 10:56:29 CAMILA ity [facility] 2022-04-15 2022-04-15 Telephone [facility] [id number] Univers 00:00:00 00:00:00 Camila Ida [place] 350.1.13.10 ity of [facility] 4.2.7.2.[place] [id number] [place] dical NAL 134 [facility] 2022-04-14 2022-04-14 Scaffold Erector Juan Diego, [facility] Main [facility] 1.2.8 40.114 [id number] Univers 08:15:00 08:30:00 Visit Adum, Camila [place] 350.1.13.10 ity of [facility] 4.2.[place].2.[place] [phone] [place] dical NAL 353 [facility] 2022-04-14 2022-04-14 Outpatient R AD, [facility] [id number] Univers 08:15:00 08:15:00 CAMILA ity [facility] 2022-04-06 2022-04-06 Outpatient P AD, [facility] MICHELE [id number] Univers 17:06:00 18:55:00 CAMILA ity of [facility] 2022-04-06 2022-04-06 [facility] 1.2.840.114 [id number] Univers 17:06:00 18:55:00 Encounter Camila [place] 350.1.13.10 [place] [id number] [facility] 083 Tina 2022-04-06 2022-04-06 Case [facility] 1.2.840.114 [id number] Univers 00:00:00 00:00:00 Management Camila [place] 350.1.13.10 [place] of [place] [phone] N[place] dical NAL [address] [place] [address] 2022-04-06 2022-04-06 Telephone [facility] 1.2.377.250 [id number] Univers 00:00:00 00:00:00 Camila [place] 350.1.13.10 it[place] of [place] [id number] N[place] dical NAL 134 [facility] 2022-04-06 2022-04-06 [facility] 1.2.000.993 [id number] Univers 00:00:00 00:00:00 Camila [place] 350.1.13.10 it[place] of [place] [id number] Nj dical NAL 134 [facility] 2022-04-04 2022-04-04 Scaffold Erector Juan Diego, [facility] 1.2.8 40.114 [id number] Univers 08:45:00 09:00:00 Visit AdCamila browning 350.1.13.10 it[place] of [place] [id number] N[place] dical NAL 353 [facility] 2022-04-04 2022-04-04 Outpatient R AD, [facility] [id number] Univers 08:45:00 08:45:00 CAMILA ity [facility] 2022-04-01 2022-04-01 Outpatient R ADUM, [facility] [id number] Univers 11:15:00 12:15:19 CAMILA itmiguel [facility] 2022-04-01 2022-04-01 Routine Adum, [facility] 1.2.840.114 [id number] Univers 11:15:00 12:15:19 Camila [place] 350.1.13.10 ity of Visit [place] [id number] Nj dical NAL 134 [facility] 2022-04-01 2022-04-01 Scaffold Erector 2, Adc Lab [facility] 1.2.840.114 [id number] Univers 10:15:00 10:30:00 Visit Adum, Camila [place] 350.1.13.10 [place] of [place] [id number] Nj dical NAL 353 [facility] 2022-04-01 2022-04-01 Telephone [facility] 1.2.950.494 [id number] Univers 00:00:00 00:00:00 Camila HOLCOM[place] 350.1.13.10 ity of [facility] 4.2.7.2.[place] [id number] Nj dical NAL 134 [facility] 2022-03-30 2022-03-30 Outpatient X ADUM, [facility] MICHELE [id number] Univers 12:53:00 17:00:00 CAMILA aponte [facility] 2022-03-30 2022-03-30 Emergency Natacha Leo [facility] 1.2.840 .114 [id number] Univers 12:53:00 17:00:00 Adnam, Camila [place] 350.1.13.10 [place] [id number] [facility] 083 Tina 2022-03-30 2022-03-30 Telephone Adum, [facility] 1.2.655.648 [id number] Univers 00:00:00 00:00:00 Camila [place] 350.1.13.10 [place] of [place] [id number] [address] 2022-03-03 2022-03-03 Scaffold Erector Ultrasound, [facility] 1.2 .840.114 [id number] Univers 14:15:00 15:09:26 Visit Balta Womack Vivian [employer]NAGER [employer] DEVELOPMENT 350.1. 13.10 ity of [facility] 4.2.7.2.686 Power as MATERNAL [phone] [facility] ical & CHILD [address] [place] [address] 2022-03-03 2022-03-03 Outpatient P VU [facility] [id number] Univers 14:15:00 14:15:00 CHASEMiguel ity [facility] 2022-02-25 2022-02-25 Outpatient R ADUM, [facility] [id number] Univers 13:15:00 14:54:58 CAMILA ity [facility] 2022-02-25 2022-02-25 Routine Adum, [facility] 1.2.840.114 [id number] Univers 13:15:00 14:54:58 Camila [place] 350.1.13.10 ity of [place] [id number] [address] 2022-02-15 2022-02-15 Outpatient P ADUM, [facility] MICHELE [id number] Univers 15:47:00 18:05:00 CAMILA ity [facility] 2022-02-15 2022-02-15 Hospital Adum, [facility] 1.2.840.114 [id number] Univers 15:47:00 18:05:00 Encounter Camila [place] 350.1.13.10 [place] [id number] [address] 2022-02-15 2022-02-15 Outpatient R ADUM, [facility] [id number] Univers 15:30:00 16:28:28 CAMILA ity [facility] 2022-02-15 2022-02-15 Routine Annie Herrera [facility] 1.2.840.11 [id number] Univers 15:30:00 16:28:28 Adum, Camila [place] 350.1.13.10 ity of Visit [facility] 4[place]2.[place].2.[place] [id number] [facility] [address] [facility] 2022-02-15 2022-02-15 Telephone Adum, [facility] [id number] [id number] Univers 00:00:00 00:00:00 Camila HOLCOM[place] 350.1.13.10 ity of [facility] 4.2.7.2.[place] [id number] [address] 2022-02-04 2022-02-04 Outpatient P [facility] [id number] Univers 10:15:00 10:15:00 ity of [facility] 2022-02-03 2022-02-03 Scaffold Erector Juan Diego, [facility] 1.2.8 40.114 [id number] Univers 10:45:00 11:00:00 Visit Adum, Camila CANALESREBECA 350.1.13.10 ity of [place] [id number] [address] 2022-02-03 2022-02-03 Outpatient R ADUM, [facility] [id number] Univers 10:45:00 10:45:00 CAMILA ity [facility] [facility] 2022-02-02 2022-02-02 Outpatient R ADUM, [facility] [id number] Univers 10:15:00 10:40:44 CAMILA itmiguel [facility] 2022-02-02 2022-02-02 Routine Adum, [facility] [id number] Univers 10:15:00 10:40:44 Camila Prieto LILLY 350.1.13.10 it[place] [id number] [address] 2022-01-19 2022-01-19 Telephone Magda Walton [facility] 1.2.840.11 [id number] Univers 00:00:00 00:00:00 LILLY 350.1.13.10 it y [place] [id number] [address] 2022-01-13 2022-01-13 [facility] [id number] Univers 11:15:00 12:23:39 ANNIE ity of [facility] 2022-01-13 2022-01-13 [facility]ine [facility] 1.2.648.254 [id number] Univers 11:15:00 12:23:39 Annie HOLCOMB 350.1.13.10 ity of [place] [id number] [address] 2022-01-13 2022-01-13 Telephone [facility] 1.2.840.114 [id number] Univers 00:00:00 00:00:00 Camila CARR 350.1.13.10 i ty [place] [id number] [address] 2022-01-13 2022-01-13 Letter [facility] 1.2.978.953 [id number] Univers 00:00:00 00:00:00 (Out) Annie HOLCOMB 350.1.13.10 i ty of [facility] [place] [id number] [address] 2022-01-13 2022-01-13 Telephone Magda Walton [facility] 1.2.840.114 [id number] Univers 00:00:00 00:00:00 AICHA 350.1.13.10 i ty of [facility] [place] [id number] [place] dic[address] 2022-01-06 2022-01-06 [facility] 1.2.840.114 [id number] Univers 00:00:00 00:00:00 Camila CARR 350.1.13.10 i [place] [facility] [id number] [address] 2022-01-05 2022-01-05 Emergency X Pro KELSEY [facility] ERT [id number] Univers 14:47:00 18:33:00 ity of [facility] 2022-01-05 2022-01-05 Emergency Pro Kelsey [facility] 1.2.840.114 [id number] Univers 14:47:00 18:33:00 Julia HOLCOMB 350.1.13.10 i ty of [place] 4.2.7.2.686 [facility] [id number] [address] 2022-01-05 2022-01-05 Telephone Magda Walton [facility] 1.2.840.11 [id number] Univers 00:00:00 00:00:00 LILLY 350.1.13.10 it y of WOMEN'S 4.2.7.2.686 [facility] [id number] [address] 2022-01-04 2022-01-04 Outpatient R MAGDA WALTON [facility] 432 [id number] Univers 11:15:00 12:14:41 ity [facility] 2022-01-04 2022-01-04 Routine Magda Walton [facility] 1.2.840.114 [id number] Univers 11:15:00 12:14:41 LILLY 350.1.13.10 i ty of Visit WOMEN'S 4.2.7.2.686 [facility] [id number] [address] 2021-12-13 2021-12-13 Telephone Magda Walton [facility] 1.2.840.11 [id number] Univers 00:00:00 00:00:00 LILLY 350.1.13.10 it y of W[place]'S 4.2.7.2.686 [facility] [id number] [address] 2021-12-06 2021-12-06 [employer] Juan Diego, [facility] 1.2.8 40.114 [id number] Univers 13:15:00 13:30:00 Visit Magda Walton 350.1.13.10 ity of [facility] [place] [id number] [address] 2021-12-06 2021-12-06 Outpatient R MAGDA WALTON [facility] [id number] [facility] 11:15:00 12:05:35 ity of [facility] 2021-12-06 2021-12-06 Routine Magda Walton 1.2.840.114 [id number] [facility] 11:15:00 12:05:35 LILLY 350.1.13.10 i ty [place] [id number] [address] 2021-11-26 2021-11-26 Telephone Magda Walton 1.2.840.11 4 [id number] Univers 00:00:00 00:00:00 LILLY 350.1.13.10 it [place] [id number] [address] 2021-11-26 2021-11-26 Telephone Magda Walton 1.2.840.114 [id number] Univers 00:00:00 00:00:00 AICHA 350.1.13.10 i ty [place] [id number] [place] [address] 2021-11-15 2021-11-15 Telephone Magda Walton 1.2.840.11 4 [id number] Univers 00:00:00 00:00:00 LILLY 350.1.13.10 it [place] [id number] [address] 2021-11-08 2021-11-08 Outpatient R MAGDA WALTON [facility] [id number] [facility] 09:30:00 10:17:52 ity of [facility] 2021-11-08 2021-11-08 Outpatient R MAGDA WALTON [facility] 853 [id number] [facility] 09:30:00 10:17:52 ity of [facility] 2021-11-08 2021-11-08 Routine Magda Walton 1.2.840.114 [id number] Univers 09:30:00 10:17:52 LILLY 350.1.13.10 i ty [place] [id number] [address] 2021-11-08 2021-11-08 Orders Doctor GABY 1.2.840.114 [id number] Univers 00:00:00 00:00:00 Only Unassigned, LESLI 350.1.13.10 ity of [place] [facility] 4.2.7.2.686 Power as [id number] [address] 2021-10-19 2021-10-19 Initial Magda Walton 1.2.840.114 [id number] Univers 08:30:00 09:52:15 LILLY 350.1.13.10 i ty [place] [id number] [address] 2021-10-19 2021-10-19 Outpatient R MAGDA WALTON [facility] 740 [id number] Univers 08:30:00 09:52:15 ity of [facility] 2021-10-19 2021-10-19 Outpatient R MAGDA WALTON [facility] 251 [id number] Univers 08:30:00 09:52:15 ity of [facility] 2021-10-19 2021-10-19 Orders Doctor GABY 1.2.840.114 [id number] Univers 00:00:00 00:00:00 Only Unassigned, LESLI 350.1.13.10 ity of [place] [facility] 4.2.7.2.686 [place] [id number] [address] Results Test Description Test Time Test Comments Results Result Comments Source POCT URINALYSIS W/O SPECIFIC GRAVITY 2022-04-28 21:35:00 Test Item Value Reference Range Interpretation Comme nts POCT PH U (test code = 3254) 7 mg/dl 5-8 POCT U LEUK EST (test code = 3263) negative Negative - Negative POCT U NIT (test code = 3262) negative Negative - Negative POCT U PROT (test code = 3259) negative Negative - Negative POCT U GLU (test code = 3256) negative Negative - Negative POCT U KETONE (test code = 3258) negative Negative - Negative POCT U BLD (test code = 3257) negative Negative - Negative [facility] [id number] 15:43:00 Test Item Value Reference Range Interpretation Comments POCT PH U (test code = 3254) n/a 5-8 POCT U LEUK EST (test code = n/a Negative - Negative 3263) POCT U NIT (test code = 3262) n/a Negative - Negative POCT U PROT (test code = 3259) negative Negative - Negative POCT U GLU (test code = 3256) trace Negative - Negative POCT U KETONE (test code = 3258) n/a Negative - Negative POCT U BLD (test code = 3257) n/a Negative - Negative [facility]2 HR GLUCOSE TOLERANCE [id number] 17:34:17 Test Item Value Reference Range Interpretation Comments GLUC 2 HR (test code = 4645099969) 163 mg/dL 70-120 H Lab Interpretation (test code = Abnormal 69390-4) [facility] HR GLUCOSE TOLERANCE [id number] 17:07:54 Test Item Value Reference Range Interpretation Comments GLUC 1 HR (test code = 5103483833) 181 mg/dL 120-170 H Lab Interpretation (test code = Abnormal 95136-2) [facility]iscoGLUCOSE [id number] 15:34:17 Test Item Value Reference Range Interpretation Comments GLU FASTNG (test code = 5263576363) 83 mg/dL 70-110 Lab Interpretation (test code = Normal 35545-8) [facility] with [id number] 00:43:44 Test Item Value Reference Range Interpretation Comments WBC (test code = See_Comment H [Automated 3190-2) message] The sy stem which generated this result transmitted reference range : 4.30 - 11.10 10*3/?L. The reference range was not used to interpret this result as normal/abnormal . RBC (test code = See_Comment L [Automated 639-8) message] The sy stem which generated this result transmitted reference range : 3.93 - 5.25 10*6/?L. The reference range was not used to interpret this result as normal/abnormal . HGB (test code = 10.5 g/dL 11.6-15.0 L 718-7) HCT (test code = 32.0 % 35.7-45.2 L 4544-3) MCV (test code = 92.8 fL 80.6-95.5 787-2) MCH (test code = 30.4 pg 25.9-32.8 785-6) MCHC (test code = 32.8 g/dL 31.6-35.1 786-4) RDW-SD (test code = 46.6 fL 39.0-49.9 78463-9) RDW-CV (test code = 13.6 % 12.0-15.5 788-0) PLT (test code = See_Comment [Automated 777-3) message] The sy stem which generated this result transmitted reference range : 166 - 358 10*3/ ?L. The reference r tra was not used to interpret this result as normal/abnormal . MPV (test code = 11.0 fL 9.5-12.9 23696-1) NRBC/100 WBC (test See_Comment [Automat ed code = 2797119091) message] The system which generated this result transmitted reference range : 0.0 - 10.0 /100 WBCs. The refer ence range was not u sed to interpret th is result as normal/abnormal . NRBC x10^3 (test code See_Comment [Auto mated = 8364190164) message] The s ystem which generated this result transmitted reference range : 10*3/?L. The reference range was not used to interpret this result as normal/abnormal . SEG % (test code = 54 % 33-76 14873-5) BAND % (test code = 11 % 0-1 H 51675-9) META % (test code = 1 % See_Comment H [Automa eduarda 07577-1) message] The sy stem which generated this result transmitted reference range : <=0. The refere nce range was not u sed to interpret th is result as normal/abnormal . MYELO % (test code = 2 % See_Comment H [Autom ated 89665-2) message] The sy stem which generated this result transmitted reference range : <=0. The refere nce range was not u sed to interpret th is result as normal/abnormal . LYMPH % (test code = 23 % 14-54 67161-3) MONO % (test code = 7 % 0-4 H 21651-4) EOS % (test code = 2 % 0-3 93701-2) ANC (test code = 9.02 10*3/uL 1.88-7.09 H 753-4) Lab Interpretation Abnormal (test code = 03867-4) [facility]isco[facility] Acid [id number] 00:18:38 Test Item Value Reference Range Interpretation Comments URIC ACID (test code = 1146941284) 4.1 mg/dL 2.9-6.0 Lab Interpretation (test code = Normal 42996-4) [facility]iscoAlanine Amino Transferase (SGPT)2022-04-07 00:18:38 Test Item Value Reference Range Interpretation Comments ALTv (test code = 1742-6) 17 U/L 5-35 Lab Interpretation (test code = Normal 69455-8) [facility]iscoLactate [id number] 00:18:38 Test Item Value Reference Range Interpretation Comments LDH (test code = 7402229543) 170 U/L 120-246 Lab Interpretation (test code = Normal 91427-3) [facility]iscoCreatinine [id number] 00:18:18 Test Item Value Reference Range Interpretation Comments CREATININE (test code = 0.38 mg/dL 0.50-1.04 L 8811339659) eGFR (test code = mL/min/1.73m2 2365925005) ZENIA (test code = ZENIA) Association of Glomerular Filtration Rate (GFR) and Staging of Kidney Disease* + --+ --+ ------+| GFR (mL/min/1.73 m2) ?| With Kidney Damage ?| ?Without Kidney Damage+ --------+ --------+ +| ?>90 ?| ?Stage one ?| ? Normal ?+ ---+ ---+ -------+| ?60-89 ?| ?Stage two ?| ? Decreased GFR ? + --+ --+ ------+| ?30-59 ?| ?Stage three ?| ? Stage three ? + --+ --+ ------+| ?15-29 ?| ?Stage four ? | ? Stage four ?+ ---+ ---+ -------+| ?<15 (or dialysis) ? ?| ?Stage five ? | ? Stage five ?+ ---+ ---+ -------+ *Each stage assumes the associated GFR level has been in effect for at least three months. ?Stages 1 to 5, with or without kidney disease, indicate chronic kidney disease. Notes: Determination of stages one and two (with eGFR >59mL/min/1.73 m2) requires estimation of kidney damage for at least three months as defined by structural or functional abnormalities of the kidney, manifested by either:Pathological abnormalities or Markers of kidney damage (including abnormalities in the composition of the blood or urine or abnormalities in imaging tests). Lab Interpretation Abnormal (test code = 86730-1) [facility]isco[facility] (Asparate Amino Transfer)2022-04-07 00:18:18 Test Item Value Reference Range Interpretation Comments AST(SGOT) (test code = 0653932919) 20 U/L 13-40 Lab Interpretation (test code = Normal 10547-5) [facility]isco[facility]UCOSE 1 HOUR POST [id number] 17:08:00 Test Item Value Reference Range Interpretation Comments GLUC 1 HR (test code = 2543388086) 140 mg/dL 120-170 Lab Interpretation (test code = Normal 00512-3) [facility] [id number] 17:47:00 Test Item Value Reference Range Interpretation Comments POCT PH U (test code = 3254) n/a 5-8 POCT U LEUK EST (test code = n/a Negative - Negative 3263) POCT U NIT (test code = 3262) n/a Negative - Negative POCT U PROT (test code = 3259) negative Negative - Negative POCT U GLU (test code = 3256) negative Negative - Negative POCT U KETONE (test code = 3258) n/a Negative - Negative POCT U BLD (test code = 3257) n/a Negative - Negative [facility] W/O SPECIFIC [id number] 17:47:00 Test Item Value Reference Range Interpretation Comments POCT PH U (test code = 3254) n/a 5-8 POCT U LEUK EST (test code = n/a Negative - Negative 3263) POCT U NIT (test code = 3262) n/a Negative - Negative POCT U PROT (test code = 3259) negative Negative - Negative POCT U GLU (test code = 3256) negative Negative - Negative POCT U KETONE (test code = 3258) n/a Negative - Negative POCT U BLD (test code = 3257) n/a Negative - Negative [facility] WITH [id number] 20:25:12 Test Item Value Reference Range Interpretation Comments WBC (test code = See_Comment H [Automated 9790-2) message] The sy stem which generated this result transmitted reference range : 4.30 - 11.10 10*3/?L. The reference range was not used to interpret this result as normal/abnormal . RBC (test code = See_Comment L [Automated 519-8) message] The sy stem which generated this result transmitted reference range : 3.93 - 5.25 10*6/?L. The reference range was not used to interpret this result as normal/abnormal . HGB (test code = 11.6 g/dL 11.6-15.0 718-7) HCT (test code = 35.4 % 35.7-45.2 L 4544-3) MCV (test code = 94.7 fL 80.6-95.5 787-2) MCH (test code = 31.0 pg 25.9-32.8 785-6) MCHC (test code = 32.8 g/dL 31.6-35.1 786-4) RDW-SD (test code = 47.2 fL 39.0-49.9 30193-6) RDW-CV (test code = 13.6 % 12.0-15.5 788-0) PLT (test code = See_Comment [Automated 777-3) message] The sy stem which generated this result transmitted reference range : 166 - 358 10*3/ ?L. The reference r tra was not used to interpret this result as normal/abnormal . MPV (test code = 10.8 fL 9.5-12.9 73161-1) NRBC/100 WBC (test See_Comment [Automat ed code = 6789584667) message] The system which generated this result transmitted reference range : 0.0 - 10.0 /100 WBCs. The refer ence range was not u sed to interpret th is result as normal/abnormal . NRBC x10^3 (test code See_Comment [Auto mated = 6321323524) message] The s ystem which generated this result transmitted reference range : 10*3/?L. The reference range was not used to interpret this result as normal/abnormal . GRAN MAT (NEUT) % 70.5 % (test code = 770-8) IMM GRAN % (test code 4.70 % = 4633927801) LYMPH % (test code = 16.4 % 736-9) MONO % (test code = 7.9 % 5905-5) EOS % (test code = 0.0 % 713-8) BASO % (test code = 0.5 % 706-2) GRAN MAT x10^3(ANC) 8.98 10*3/uL 1.88-7.09 H (test code = 0005905627) IMM GRAN x10^3 (test 0.60 10*3/uL 0.00-0.06 H code = 4614077360) LYMPH x10^3 (test code 2.09 10*3/uL 1.32-3.29 = 731-0) MONO x10^3 (test code 1.01 10*3/uL 0.33-0.92 H = 742-7) EOS x10^3 (test code = 0.03-0.39 L 711-2) BASO x10^3 (test code 0.06 10*3/uL 0.01-0.07 = 704-7) BANDS (test code = Increased A 6216505865) Lab Interpretation Abnormal (test code = 41840-6) [facility] [id number] 20:04:39 Test Item Value Reference Interpretation Comments Range TROPONIN I (test 0.002 ng/mL See_Comment [Automated code = 4369714278) message] The system which generated this result transmitted reference range : <=0.034. The reference range was not used to interpret this result as normal/abnormal . ZENIA (test code = Reference (Normal) ZENIA) Range (defined by the 99th percentile reference limit): <= 0.034 ng/mL Note: Cardiac troponin begins to rise 3-4 hours after the onset of ischemia. Repeat in 4-6 hours if the sample was drawn within 3-4 hours of the onset of the symptom and found normal. Diagnosis of myocardial injury is made with acute changes in cTn concentrations with at least one serial sample above the 99th percentile upper reference limit (URL), taken together with the patient's clinical presentation. Biotin has been reported to cause a negative bias, interpret results relative to patient's use of biotin. Lab Interpretation Normal (test code = 89030-5) [facility]. METABOLIC PANEL (52074)2022-03-30 19:52:53 Test Item Value Reference Range Interpretation Comments NA (test code = 134 mmol/L 135-145 L 1085944955) K (test code = 4.0 mmol/L 3.5-5.0 9818053195) CL (test code = 106 mmol/L 98-108 0022920722) CO2 TOTAL (test code = 21 mmol/L 23-31 L 7945516363) AGAP (test code = 2-16 9233987949) BUN (test code = 7 mg/dL 7-23 6517420168) GLUCOSE (test code = 80 mg/dL 70-110 4341931420) CREATININE (test code = 0.38 mg/dL 0.50-1.04 L 1190900854) TOTAL BILI (test code = 0.4 mg/dL 0.1-1.6 4535541363) CALCIUM (test code = 9.7 mg/dL 8.6-10.6 6439308662) T PROTEIN (test code = 6.6 g/dL 6.3-8.2 3065099818) ALBUMIN (test code = 3.8 g/dL 3.5-5.0 0879031539) ALK PHOS (test code = 65 U/L 34-122 2728868332) ALTv (test code = 16 U/L 5-35 1742-6) AST(SGOT) (test code = 20 U/L 13-40 4896164991) eGFR (test code = mL/min/1.73m2 9927756025) ZENIA (test code = ZENIA) Association of Glomerular Filtration Rate (GFR) and Staging of Kidney Disease* + --+ --+ ------+| GFR (mL/min/1.73 m2) ?| With Kidney Damage ?| ?Without Kidney Damage+ --------+ --------+ +| ?>90 ?| ?Stage one ?| ? Normal ?+ ---+ ---+ -------+| ?60-89 ?| ?Stage two ?| ? Decreased GFR ? + --+ --+ ------+| ?30-59 ?| ?Stage three ?| ? Stage three ? + --+ --+ ------+| ?15-29 ?| ?Stage four ? | ? Stage four ?+ ---+ ---+ -------+| ?<15 (or dialysis) ? ?| ?Stage five ? | ? Stage five ?+ ---+ ---+ -------+ *Each stage assumes the associated GFR level has been in effect for at least three months. ?Stages 1 to 5, with or without kidney disease, indicate chronic kidney disease. Notes: Determination of stages one and two (with eGFR >59mL/min/1.73 m2) requires estimation of kidney damage for at least three months as defined by structural or functional abnormalities of the kidney, manifested by either:Pathological abnormalities or Markers of kidney damage (including abnormalities in the composition of the blood or urine or abnormalities in imaging tests). Lab Interpretation Abnormal (test code = 23121-7) [facility] URINALYSIS W/O SPECIFIC [id number] 19:18:00 Test Item Value Reference Range Interpretation Comments POCT PH U (test code = 3254) n/a 5-8 POCT U LEUK EST (test code = n/a Negative - Negative 3263) POCT U NIT (test code = 3262) n/a Negative - Negative POCT U PROT (test code = 3259) negative Negative - Negative POCT U GLU (test code = 3256) negative Negative - Negative POCT U KETONE (test code = 3258) n/a Negative - Negative POCT U BLD (test code = 3257) n/a Negative - Negative [facility] URINALYSIS W/O SPECIFIC [id number] 22:22:00 Test Item Value Reference Range Interpretation Comments POCT PH U (test code = 3254) 5 mg/dl 5-8 POCT U LEUK EST (test code = NEG Negative - Negative 3263) POCT U NIT (test code = 3262) NEG Negative - Negative POCT U PROT (test code = 3259) NEG Negative - Negative POCT U GLU (test code = 3256) Negative - Negative POCT U KETONE (test code = 3258) NEG Negative - Negative POCT U BLD (test code = 3257) NEG Negative - Negative [facility] W/O SPECIFIC [id number] 15:09:00 Test Item Value Reference Range Interpretation Comments POCT PH U (test code = 3254) N/A 5-8 POCT U LEUK EST (test code = 3263) N/A Negative - Negative POCT U NIT (test code = 3262) N/A Negative - Negative POCT U PROT (test code = 3259) NEG Negative - Negative POCT U GLU (test code = 3256) NEG Negative - Negative POCT U KETONE (test code = 3258) N/A Negative - Negative POCT U BLD (test code = 3257) N/A Negative - Negative [facility] [id number] 17:01:00 Test Item Value Reference Range Interpretation Comments POCT PH U (test code = 3254) n/a 5-8 POCT U LEUK EST (test code = n/a Negative - Negative 3263) POCT U NIT (test code = 3262) n/a Negative - Negative POCT U PROT (test code = 3259) negative Negative - Negative POCT U GLU (test code = 3256) negative Negative - Negative POCT U KETONE (test code = 3258) n/a Negative - Negative POCT U BLD (test code = 3257) n/a Negative - Negative [facility] WITH [id number] 19:44:21 Test Item Value Reference Range Interpretation Comments WBC (test code = See_Comment [Automated 6690-2) message] The sy stem which generated this result transmitted reference range : 4.30 - 11.10 10*3/?L. The reference range was not used to interpret this result as normal/abnormal . RBC (test code = See_Comment [Automated 789-8) message] The sy stem which generated this result transmitted reference range : 3.93 - 5.25 10*6/?L. The reference range was not used to interpret this result as normal/abnormal . HGB (test code = 12.5 g/dL 11.6-15 718-7) HCT (test code = 38.5 % 35.7-45.2 4544-3) MCV (test code = 94.8 fL 80.6-95.5 787-2) MCH (test code = 30.8 pg 25.9-32.8 785-6) MCHC (test code = 32.5 g/dL 31.6-35.1 786-4) RDW-SD (test code = 41.6 fL 39-49.9 70340-1) RDW-CV (test code = 11.9 % 12-15.5 L 788-0) PLT (test code = See_Comment [Automated 777-3) message] The sy stem which generated this result transmitted reference range : 166 - 358 10*3/ ?L. The reference r tra was not used to interpret this result as normal/abnormal . MPV (test code = 10.6 fL 9.5-12.9 45565-7) NRBC/100 WBC (test See_Comment [Automat ed code = 6192915335) message] The system which generated this result transmitted reference range : 0.0 - 10.0 /100 WBCs. The refer ence range was not u sed to interpret th is result as normal/abnormal . NRBC x10^3 (test code See_Comment [Auto mated = 7582702361) message] The s ystem which generated this result transmitted reference range : 10*3/?L. The reference range was not used to interpret this result as normal/abnormal . GRAN MAT (NEUT) % 71.4 % (test code = 770-8) IMM GRAN % (test code 1.10 % = 3584737909) LYMPH % (test code = 19.1 % 736-9) MONO % (test code = 7.9 % 5905-5) EOS % (test code = 0.1 % 713-8) BASO % (test code = 0.4 % 706-2) GRAN MAT x10^3(ANC) 7.54 10*3/uL 1.88-7.09 H (test code = 1848329653) IMM GRAN x10^3 (test 0.12 10*3/uL 0-0.06 H code = 4857351186) LYMPH x10^3 (test code 2.02 10*3/uL 1.32-3.29 = 731-0) MONO x10^3 (test code 0.84 10*3/uL 0.33-0.92 = 742-7) EOS x10^3 (test code = 0.03-0.39 L 711-2) BASO x10^3 (test code 0.04 10*3/uL 0.01-0.07 = 704-7) Lab Interpretation Abnormal (test code = 53714-8) [facility] URINALYSIS W/O SPECIFIC [id number] 16:36:00 Test Item Value Reference Range Interpretation Comments POCT PH U (test code = 3254) n/a 5-8 POCT U LEUK EST (test code = n/a Negative - Negative 3) POCT U NIT (test code = 3262) n/a Negative - Negative POCT U PROT (test code = 3259) negative Negative - Negative POCT U GLU (test code = 3256) normal Negative - Negative POCT U KETONE (test code = 3258) n/a Negative - Negative POCT U BLD (test code = 3257) n/a Negative - Negative [facility] URINALYSIS W SPECIFIC [id number] 15:00:00 Test Item Value Reference Range Interpretation [...] POCT U APPEAR (test code = Clear 3267) [facility] X[facility] CHEST 1 [id number] 13:34:00 [facility] : 1985 Sex: F Name: MIKE GREGORIO [facility] : 1985 Age/S: 34 / F [id number] Unit #: [id number] Loc: [place] [address] Phys: Baldemar Diaz MD Acct: [id number] Dis Date: Status: REG ER PHONE #: [phone] Exam Date: 07/13/2020 1320 FAX #: Reason: CHEST PAIN EXAMS: CPT: [id number] XR CHEST 1 V 74201 Fluoro Time: DAP (Gy m2): Air Kerma (mGy): EXAM: - XR CHEST 1 V Location code:C3 HISTORY: Chest pain COMPARISON: None available time of interpretation. FINDINGS: Frontal view of the chestis submitted. Heart size and vascularity are within normal limits. The lungs are clear of focal consolidation. No effusion or evidence of pneumothorax.. No acute osseous pathology. IMPRESSION 1. No radi ographic evidence of acute cardiopulmonary process. at 1334 Reported and signed by: Suzette Iverson M.D. CC: Baldemar Diaz MD PAGE 1 Signed Report Name: MIKE GREGORIO [facility] : 1985 Age/S: 34 / F [id number] Unit #: [id number] Loc: [place] [address] Phys: Baldemar Diaz MD Acct: [id number] Dis Date: Status: REG ER PHONE #: [phone] Exam Date: 07/13/2020 1320 FAX #: Reason: CHEST PAIN EXAMS: CPT: [id number] XR CHEST 1 V 59314 Fluoro Time: DAP (Gy m2): Air Kerma (mGy): (Continued) Technologist: Bobo Pulliam, RT(R)(CT) Trnscb Date/Time: 07/13/2020 (3740) [id number] Orig Print D/T: S: 07/13/2020 (4563) PAGE 2 Signed Report"
[2022-04-29] MEDS ORDERED: FENTANYL CITR 100 MCG/2 ML ONE (14:21)
--- NOTE | 2022-04-29 14:31 | RAD REPORT ---
EXAM DESCRIPTION: CT - Head Brain Wo Cont - 04/29/2022 2:18 pm CLINICAL HISTORY: Headache COMPARISON: 2014 TECHNIQUE: Computed axial tomography of the head was obtained. IV contrast was not requested. All CT scans are performed using dose optimization technique as appropriate and may include automated exposure control or mA/KV adjustment according to patient size. FINDINGS: An intracranial bleed is not seen . The ventricles are normal in caliber. No significant hypodense areas within the brain visualized No extra-axial fluid collection is noted. Fluid within the sinuses/ mastoids is not seen. IMPRESSION: No acute intracranial abnormality is seen. If patient's symptoms persist MRI of the bra in would be recommended.
[2022-04-29 14:47] LABS: Urine Blood Negative (Negative); Urine Glucose Negative (Negative); Urine Protein Negative (Negative); Urine pH 6.5 (5.0-7.0)
[2022-04-29 14:48] LABS: Absolute Lymphocytes (CBC) 1.9 K/uL (0.7-4.9); Hematocrit 33.2 % (36.0-45.0); Lymphocytes % 19.1 % (15.3-44.8); MCV 90.7 fL (80-100); MPV 8.9 fL (7.6-11.3); RBC Red Blood Cell Count 3.66 M/uL (3.86-4.86)
[2022-04-29 15:01] LABS: Potassium 3.7 mmol/L (3.5-5.1)
--- NOTE | 2022-04-29 15:40 | RAD REPORT ---
EXAM DESCRIPTION: CTHead angio04/29/2022 3:22 pm CLINICAL HISTORY: Thunderclap headache COMPARISON: None TECHNIQUE: CT angiogram of the head was obtained. 3D MIPS reconstruction performed. All CT scans are performed using dose optimization technique as appropriate and may include automated exposure control or mA/KV adjustment according to patient size. FINDINGS: The basilar, internal carotid, anterior cerebral, middle cerebral and posterior cerebral a rteries do not demonstrate a significant abnormality An aneurysm is not seen A significant stenosis is not noted. IMPRESSION: No acute abnormality is displayed
--- NOTE | 2022-04-29 15:59 | ER ---
Nurse's Notes [facility] Name: Debra Elizondo Age: 36 yrs Sex: Female : 1985 Arrival Date: 04/29/2022 Time: 13:51 Bed 16 Private MD: Diagnosis: Headache;32 weeks gestation of Presentation: 04/29 14:01 Chief complaint: Sudden severe pain behind right eye that radiates to right side of hb head that started 20 minutes ago. 14:02 Coronavirus screen: At this time, the client does not indicate any symptoms associated hb with coronavirus-19. Ebola Screen: No symptoms or risks identified at this time. Risk Assessment: Do you want to hurt yourself or someone else? Patient reports no desire to harm self or others. Onset of symptoms was April 29, 2022. 14:02 Method Of Arrival: Ambulatory hb 14:02 Acuity: FREDA 3 hb 14:15 Initial Sepsis Screen: Does the patient meet any 2 criteria? No. Patient's initial kb3 sepsis screen is negative. Does the patient have a suspected source of infection? No. Patient's initial sepsis screen is negative. 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 Last tetanus immunization: unknown. - Social history:: Smoking status: Patient denies any tobacco usage or history of. Screenin:12 [facility] ED Fall Risk Assessment (Adult) History of falling in the last 3 months, kb3 including since admission No falls in past 3 months (0 pts) Confusion or Disorientation No (0 pts) Intoxicated or Sedated No (0 pts) Impaired Gait No (0 pts) Mobility Assist Device Used No (0 pt) Altered Elimination No (0 pt) Score/Fall Risk Level 0 - 2 = Low Risk Oriented to surroundings, Maintained a safe environment, Educated pt \\T\\ family on fall prevention, incl call for assistance when getting out of bed, Assessed \\T\\ reinforced patient's understanding of fall precautions, Provided non-skid footwear, Hourly rounding (assess needs \\T\\ fall precautionary measures) done, Used ambulatory aids as needed (educated on \\T\\ assisted with). Abuse screen: Denies threats or abuse. Denies injuries from another. Nutritional screening: No deficits noted. Tuberculosis screening: No symptoms or risk factors identified. 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 Pain: Complains of pain in right eye Pain radiates to right temporal area and right occipital area Pain currently is 10 out of 10 on a pain scale. Quality of pain is described as pressure, Pounding. Neuro: No deficits noted. Reports headache in right parietal area, frontal area, occipital area, that is the "worst ever". 16:42 Reassessment:. General: Pt reports pain is down to 5-6. Pt currently trying to contact kb3 her friend to transport her home. . Vital Signs: 14:02 BP 121 / 109; Pulse 99; Resp 18; Temp 98.1; Pulse Ox 100% on R/A; Pain 10/10; hb 15:00 BP 118 / 76; Pulse 88; Resp 20; Pulse Ox 100% ; kb3 16:00 BP 105 / 81; Pulse 80; Resp 16; Pulse Ox 100% ; kb3 ED Course: 13:51 Patient arrived in ED. mr 13:52 Bety Barajas FNP-C is PHCP. snw 13:52 Pavan Green MD is Attending Physician. snw 14:02 Triage completed. hb 14:04 Belinda Whaley, RN is Primary Nurse. kb3 14:12 Patient has correct armband on for positive identification. Bed in low position. Call [employer] [facility] light in reach. Side rails up X2. compliance monitor on. Pulse ox on. NIBP on. 14:12 No provider procedures requiring assistance completed. kb3 14:[address] via stretcher. kb3 14:15 Arm band placed on right wrist. kb3 14:20 CT Head Brain wo Cont In Process Unspecified. EDMS 14:40 Abo/rh Typing Sent. kb3 14:40 Basic Metabolic Panel Sent. kb3 14:40 CBC with Diff Sent. kb3 15:[address] via stretcher. kb3 15:23 CT Head Angio In Process Unspecified. EDMS 15:24 Patient moved back from CT. kb3 16:45 IV discontinued, intact, bleeding controlled, No redness/swelling at site. kb3 Administered Medications: 14:30 Drug: fentaNYL (PF) 25 mcg Route: IVP; Site: right wrist; kb3 15:30 Follow up: Response: No adverse reaction; Pain is decreased kb3 16:06 Drug: Tylenol 1000 mg Route: PO; kb3 16:45 Follow up: Response: No adverse reaction; Pain is decreased kb3 Medication: 14:12 VIS not applicable for this client. kb3 Outcome: 15:59 Discharge ordered by . snw 16:45 Discharged to home ambulatory, with friend. kb3 16:45 Condition: stable 16:45 Discharge instructions given to patient, Instructed on discharge instructions, follow up and referral plans. medication usage, Demonstrated understanding of instructions, follow-up care, medications, Prescriptions given X 1. 17:01 Patient left the ED. kb3 Signatures: Dispatcher [employer] EDGA Bety Barajas, JOHN SOLID DIE CUTTER-Mari Meadows Heather, Belinda Mario RN, RN RN kb3
--- NOTE | 2022-04-29 15:59 | EDPHYS ---
Physician Documentation [facility] Name: Debra Elizondo Age: 36 yrs Sex: Female : 1985 Arrival Date: 04/29/2022 Time: 13:51 Bed 16 Private MD: ED Physician Pavan Green HPI: 04/29 14:11 This 36 yrs old Female presents to ER via Ambulatory with complaints of Head pain, snw Dizziness. 14:11 The patient complains of pain to the right eye. The patient describes the headache as a snw thunder clap, unrelenting. Onset: The symptoms/episode began/occurred suddenly, just prior to arrival. Associated signs and symptoms: Pertinent positives: dizziness, anxiety. Severity of symptoms: At its worst the pain was "never this severe", the "worst in my life", in the emergency department the pain is unchanged. Headache History: Denies prior headaches. The symptoms are alleviated by nothing. The patient has not experienced similar symptoms in the past. The patient has not recently seen a physician. 32 wk . 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 Last tetanus immunization: unknown. - Social history:: Smoking status: Patient denies any tobacco usage or history of. ROS: 14:09 Constitutional: Negative for fever, chills, and weight loss, Eyes: Negative for injury, snw pain, redness, and discharge, ENT: Negative for injury, pain, and discharge, Neck: Negative for injury, pain, and swelling, Cardiovascular: Negative for chest pain, palpitations, and edema, Respiratory: Negative for shortness of breath, cough, wheezing, and pleuritic chest pain, Abdomen/GI: Negative for abdominal pain, nausea, vomiting, diarrhea, and constipation, Back: Negative for injury and pain, : Negative for injury, bleeding, discharge, and swelling, MS/Extremity: Negative for injury and deformity, Skin: Negative for injury, rash, and discoloration. 14:09 Neuro: Positive for headache, sudden, severe, exploding pain behind right eye. . Exam: 14:07 Constitutional: This is a well developed, well nourished patient who is awake, alert, snw and in no acute distress. ENT: Nares patent. No nasal discharge, no septal abnormalities noted. Tympanic membranes are normal and external auditory canals are clear. Oropharynx with no redness, swelling, or masses, exudates, or evidence of obstruction, uvula midline. Mucous membranes moist. Neck: Trachea midline, no thyromegaly or masses palpated, and no cervical lymphadenopathy. Supple, full range of motion without nuchal rigidity, or vertebral point tenderness. No Meningismus. Chest/axilla: Normal chest wall appearance and motion. Nontender with no deformity. No lesions are appreciated. 14:07 Head/Face: Normocephalic, atraumatic. 14:07 Respiratory: Lungs have equal breath sounds bilaterally, clear to auscultation and percussion. No rales, rhonchi or wheezes noted. No increased work of breathing, no retractions or nasal flaring. Abdomen/GI: Soft, non-tender, with normal bowel sounds. 32 wks . No guarding or rebound. No evidence of tenderness throughout. Back: No spinal tenderness. No costovertebral tenderness. Full range of motion. Skin: Warm, dry with normal turgor. Normal color with no rashes, no lesions, and no evidence of cellulitis. MS/ Extremity: Pulses equal, no cyanosis. Neurovascular intact. Full, normal range of motion. 14:07 Eyes: Exam is negative for 14:07 Cardiovascular: Rate: tachycardic, Heart sounds: normal. 14:07 Neuro: Orientation: to person, place \\T\\ time. Mentation: is normal, Memory: is normal, Motor: is normal, Sensation: is normal, seizure activity, is not displayed by the patient. Vital Signs: 14:02 BP 121 / 109; Pulse 99; Resp 18; Temp 98.1; Pulse Ox 100% on R/A; Pain 10/10; hb 15:00 BP 118 / 76; Pulse 88; Resp 20; Pulse Ox 100% ; kb3 16:00 BP 105 / 81; Pulse 80; Resp 16; Pulse Ox 100% ; kb3 MDM: 14:00 Patient medically screened. snw 15:42 Data reviewed: vital signs, nurses notes. Data interpreted: Pulse oximetry: on room air snw is 100 %. Interpretation: normal. Counseling: I had a detailed discussion with the patient and/or guardian regarding: the historical points, exam findings, and any diagnostic results supporting the discharge/admit diagnosis, lab results, radiology results, the need for outpatient follow up. Response to treatment: the patient's symptoms have mildly improved after treatment. Special discussion: Based on the history and exam findings, there is no indication for further emergent testing or inpatient evaluation. I discussed with the patient/guardian the need to see the neurologist for further evaluation of the symptoms. I discussed with the patient/guardian the need to see the primary care provider for further evaluation of the symptoms. 04/29 14:06 Order name: Abo/rh Typing snw 04/29 14:06 Order name: Basic Metabolic Panel; Complete Time: 15:02 snw 04/29 14:06 Order name: CT Head Brain wo Cont; Complete Time: 14:32 snw 04/29 14:06 Order name: CBC with Diff; Complete Time: 14:54 snw 04/29 14:34 Order name: CT Head Angio; Complete Time: 15:41 snw 04/29 14:47 Order name: Urine Dipstick-Ancillary; Complete Time: 14:49 EDMS 04/29 14:06 Order name: Oxygen: 15L NRB; Complete Time: 14:10 snw 04/29 14:06 Order name: IV Saline Lock; Complete Time: 14:40 snw 04/29 14:06 Order name: Labs collected and sent; Complete Time: 14:40 snw 04/29 14:06 Order name: NPO; Complete Time: 14:40 snw 04/29 14:06 Order name: Urine Dipstick-Ancillary (obtain specimen); Complete Time: 14:40 snw Administered Medications: 14:30 Drug: fentaNYL (PF) 25 mcg Route: IVP; Site: right wrist; kb3 15:30 Follow up: Response: No adverse reaction; Pain is decreased kb3 16:06 Drug: Tylenol 1000 mg Route: PO; kb3 16:45 Follow up: Response: No adverse reaction; Pain is decreased kb3 Disposition: 17:05 Co-signature as Attending Physician, Pavan Green MD. rn Disposition Summary: 04/29/22 15:59 Discharge Ordered Location: Home snw Condition: Stable snw Diagnosis - Headache snw - 32 weeks gestation of snw Followup: snw - With: Emergency Department - When: As needed - Reason: Worsening of condition Followup: snw - With: Private Physician - When: 2 - 3 days - Reason: Recheck today's complaints, Continuance of care, Re-evaluation by your physician Discharge Instructions: - Discharge Summary Sheet snw - General Headache Without Cause snw - Rehydration, Adult snw - Form - Headache Record snw Forms: - Medication Reconciliation Form snw - Thank You Letter snw - Antibiotic Education snw - Prescription Opioid Use snw - Work release form kb3 Prescriptions: - promethazine 25 mg Oral Tablet - take 1 tablet by ORAL route every 6 hours As needed; 20 tablet; Refills: 0, snw Product Selection Permitted Signatures: Dispatcher [employer] EDNY Bety Barajas, YENIFER-C RELIEF MATE-Csnw Pavan Green MD MD rn Bradberry, Kelly, RN RN kb3 Corrections: (The following items were deleted from the chart) 14:11 14:07 Respiratory: Lungs have equal breath sounds bilaterally, clear to auscultation snw and percussion. No rales, rhonchi or wheezes noted. No increased work of breathing, no retractions or nasal flaring. Abdomen/GI: Soft, non-tender, with normal bowel sounds. No distension or tympany. No guarding or rebound. No evidence of tenderness throughout. Back: No spinal tenderness. No costovertebral tenderness. Full range of motion. Skin: Warm, dry with normal turgor. Normal color with no rashes, no lesions, and no evidence of cellulitis. MS/ Extremity: Pulses equal, no cyanosis. Neurovascular intact. Full, normal range of motion. snw
[2022-04-29] MEDS ORDERED: ACETAMINOPHEN 500 MG TAB ONE (16:06)
[2022-04-29 17:13] VITALS: TEMP 98.1; O2SAT 100
[2022-04-29 17:15] VITALS: BP 105/81
== END 2022-04-29 17:01 | disposition home or self-care (01) ==
LOC: ER 13:50
DX: O26.893 Other specified pregnancy related conditions, third trimester (principal); Z3A.32 32 weeks gestation of pregnancy
CPT/HCPCS: 85025; 80048; 36415; 86900; 86901; 81003; 70450; 70496; 96374; 99285; Q9967; J3010

== ENCOUNTER 2024-04-03 18:05 | Emergency (ER) | payer BC ==
[2024-04-03 18:47] LABS: Absolute Basophils 0.1 K/uL (0-0.5); Absolute Eosinophils 0.1 K/uL (0-0.5); Absolute Lymphocytes (CBC) 2.9 K/uL (0.7-4.9); Absolute Monocytes 0.6 K/uL (0.1-1.3); Basophils % 0.6 % (0-1.3); Eosinophils % 1.7 % (0-4.4); Hematocrit 40.2 % (36.0-45.0); Hemoglobin 13.7 g/dL (12.0-15.0); Lymphocytes % 33.2 % (15.3-44.8); MCH 30.9 pg (27.0-35.0); MCV 90.9 fL (80-100); MPV 8.3 fL (7.6-11.3); Monocytes % 6.9 % (3.3-12.3); Neutrophils % 57.6 % (41.7-73.7); Nucleated Red Blood Cells % 0.1 % (0-0); Platelets 278 thou/uL (152-406); RBC Red Blood Cell Count 4.42 M/uL (3.86-4.86); Red Cell Distribution Width 13.6 % (12.1-15.2)
[2024-04-03 19:04] LABS: Anion Gap 10.7 mEq/L (5.0-15.0); BUN Blood Urea Nitrogen 17 mg/dL (7-18); Bicarbonate 24 mEq/L (21-32); Glomerular Filtration Rate 100 ml/min (=/>90); Glucose Level 100 mg/dL (74-106); Potassium 3.7 mEq/L (3.5-5.1); Sodium Level 136 mEq/L (136-145)
[2024-04-03 19:05] LABS: Troponin High Sensitivity < 3.0 pg/mL (<58.9)
--- NOTE | 2024-04-03 19:36 | RAD REPORT ---
Procedure: Chest Single View HISTORY: Cough COMPARISON: none FINDINGS: The lungs appear clear of acute infiltrate. No significant pleural effusion noted. The heart is normal size. IMPRESSION: No acute abnormality is displayed.
--- NOTE | 2024-04-03 19:41 | ER ---
Nurse's Notes [facility] Name: Debra Elizondo Age: 38 yrs Sex: Female : 1985 Arrival Date: 04/03/2024 Time: 18:05 Bed 4 Private MD: Diagnosis: Chest pain, unspecified Presentation: 04/03 18:19 Chief complaint: Patient states: chest pain since yesterday , felt like a pinching in iw her skin, today it's deep on left side , feels like a pulling from breast to collar bone, pain is intermittent about every 10-15 minutes. Coronavirus screen: At this time, the client does not indicate any symptoms associated with coronavirus-19. Ebola Screen: No symptoms or risks identified at this time. Initial Sepsis Screen: Does the patient meet any 2 criteria? No. Patient's initial sepsis screen is negative. Does the patient have a suspected source of infection? No. Patient's initial sepsis screen is negative. Risk Assessment: Do you want to hurt yourself or someone else? Patient reports no desire to harm self or others. Onset of symptoms was April 02, 2024. 18:19 Method Of Arrival: Ambulatory iw 18:19 Acuity: FREDA 3 iw Historical: - Allergies: 18:21 No Known Allergies; iw - Home Meds: 18:21 None [Active]; iw - PMHx: 18:21 GERD; iw - PSHx: 18:21 None; iw - Immunization history:: Adult Immunizations up to date. - Infectious Disease History:: Denies. - Social history:: Smoking status: Patient denies any tobacco usage or history of. Screenin:46 [facility] ED Fall Risk Assessment (Adult) History of falling in the last 3 months, ko1 including since admission No falls in past 3 months (0 pts) Confusion or Disorientation No (0 pts) Intoxicated or Sedated No (0 pts) Impaired Gait No (0 pts) Mobility Assist Device Used No (0 pt) Altered Elimination No (0 pt) Score/Fall Risk Level 0 - 2 = Low Risk Oriented to surroundings, Maintained a safe environment, Educated pt \T\ family on fall prevention, incl call for assistance when getting out of bed, Assessed \T\ reinforced patient's understanding of fall precautions, Provided non-skid footwear, Hourly rounding (assess needs \T\ fall precautionary measures) done. Abuse screen: Denies threats or abuse. Denies injuries from another. Nutritional screening: No deficits noted. Tuberculosis screening: No symptoms or risk factors identified. Assessment: 18:46 General: Appears in no apparent distress. Behavior is calm, cooperative, appropriate ko1 for age. Pain: Pain does not radiate. Pain began gradually, 2-3 days ago. Neuro: No deficits noted. Cardiovascular: Reports chest pain. Respiratory: No deficits noted. GI: No deficits noted. : No deficits noted. EENT: No deficits noted. Derm: No signs and/or symptoms reported regarding the dermatologic system. Musculoskeletal: No deficits noted. 19:56 Reassessment: Patient and/or family updated on plan of care and expected duration. Pain ha1 level reassessed. Patient is alert, oriented x 3, equal unlabored respirations, skin warm/dry/pink. Patient states feeling better. Patient states symptoms have improved. Vital Signs: 18:19 BP 128 / 97; Pulse 91; Resp 16; Temp 98.1; Pulse Ox 100% on R/A; Weight 81.65 kg; iw Height 5 ft. 4 in. ; Pain 4/10; 19:55 BP 122 / 92; Pulse 87; Resp 17 S; Temp 98.1(T); Pulse Ox 100% on R/A; ha1 18:19 Body Mass Index 30.90 (81.65 kg, 162.56 cm) iw 18:19 Pain Scale: Adult iw ED Course: 18:07 Patient arrived in ED. ra3 18:08 Shelby Anthony [facility]-C [facility]. kb 18:08 Raúl Cervantes MD is Attending Physician. kb 18:21 Triage completed. iw 18:21 Arm band placed on. iw 18:40 D-Dimer Sent. em1 18:40 Basic Metabolic Panel Sent. em1 18:40 CBC with Diff Sent. em1 18:40 Troponin HS Sent. em1 18:40 Initial lab(s) drawn, by me, sent to lab. Inserted saline lock: 20 gauge in right em1 forearm, using aseptic technique. Blood collected. Flushed with 10 mL NS. 18:45 Merari Arnold, ARELI is Primary Nurse. ko1 18:46 Patient has correct armband on for positive identification. Bed in low position. Call ko1 light in reach. Side rails up X 1. Provided Education on: labs. Client placed on continuous cardiac and pulse oximetry monitoring. NIBP monitoring applied. nuclear monitoring technician on. Door closed. Noise minimized. Lights dimmed. Warm blanket given. Pillow given. 18:46 No provider procedures requiring assistance completed. Patient maintains SpO2 ko1 saturation greater than 95% on room air. 18:50 EKG done, by ED staff, reviewed by Shelby LOPEZ. ko1 19:08 XRAY Chest (1 view) In Process Unspecified. EDMS 19:56 IV discontinued, intact, bleeding controlled, No redness/swelling at site. Pressure ha1 dressing applied. Administered Medications: No medications were administered Medication: 18:46 VIS not applicable for this client. ko1 Outcome: 19:41 Discharge ordered by . kb 19:56 Discharged to home ambulatory, ha1 19:56 Condition: stable 19:56 Condition: stable 19:56 Discharge instructions given to patient, Instructed on discharge instructions, follow up and referral plans. Demonstrated understanding of instructions, follow-up care, 19:57 Patient left the ED. ha1 Signatures: Dispatcher [employer] EDHI Shelby Anthony FNP-C FNP-Ckb Williams, Irene, RN RN Sudhir Duong em1 Lalitha Burnette RN RN ha1 Merari Arnold, ARELI RN sena1 Jonelle Valencia ra3 Corrections: (The following items were deleted from the chart) 18:26 18:19 BP 128 / 97; Pulse 91bpm; Resp 16bpm; Pulse Ox 100% RA; 81.65 kg; Height 5 ft. 4 iw in.; BMI: 30.9; Pain 4/10, Adult; iw
--- NOTE | 2024-04-03 19:41 | EDPHYS ---
Physician Documentation [facility] Name: Debra Elizondo Age: 38 yrs Sex: Female : 1985 Arrival Date: 04/03/2024 Time: 18:05 Bed 4 Private MD: ED Physician Raúl Cervantes HPI: 04/03 18:22 This 38 yrs old Female presents to ER via Ambulatory with complaints of Chest Pain - kb [id number]. 18:22 Pt is a 38 year old female who presents for left sided chest pain that started a few kb weeks ago but has been worse for the past 2 days. Reports intermittent shortness of breath and dizziness. Reports pain is from top of left breast to collar bone and sometimes radiates to neck and under left arm. . Historical: - Allergies: 18:21 No Known Allergies; iw - Home Meds: 18:21 None [Active]; iw - PMHx: 18:21 GERD; iw - PSHx: 18:21 None; iw - Immunization history:: Adult Immunizations up to date. - Infectious Disease History:: Denies. - Social history:: Smoking status: Patient denies any tobacco usage or history of. ROS: 18:24 Constitutional: As per HPI kb Exam: 18:24 Constitutional: This is a well developed, well nourished patient who is awake, alert, kb and in no acute distress. Head/Face: Normocephalic, atraumatic. ENT: Moist Mucous membranes Cardiovascular: Regular rate Respiratory: Respirations even and unlabored. No increased work of breathing. Talking in full sentences Skin: Warm, dry with normal turgor. Normal color. MS/ Extremity: Pulses equal, no cyanosis. Neurovascular intact. Full, normal range of motion. Neuro: Awake and alert, GCS 15, oriented to person, place, time, and situation. 18:59 ECG was reviewed by the Attending Physician. kb Vital Signs: 18:19 BP 128 / 97; Pulse 91; Resp 16; Temp 98.1; Pulse Ox 100% on R/A; Weight 81.65 kg; iw Height 5 ft. 4 in. ; Pain 4/10; 19:55 BP 122 / 92; Pulse 87; Resp 17 S; Temp 98.1(T); Pulse Ox 100% on R/A; ha1 18:19 Body Mass Index 30.90 (81.65 kg, 162.56 cm) iw 18:19 Pain Scale: Adult iw MDM: 18:08 Medical Screening Exam initiated kb 18:24 Data reviewed: vital signs, nurses notes. kb 19:41 Differential diagnosis: acute mi, arrhythmia, pe, muscle strain. Counseling: I had a kb detailed discussion with the patient and/or guardian regarding the historical points, exam findings, and any diagnostic results supporting the discharge/admit diagnosis, lab results, radiology results, the need for outpatient follow up, a family practitioner, to return to the emergency department if symptoms worsen or persist or if there are any questions or concerns that arise at home. 04/03 18:24 Order name: Basic Metabolic Panel; Complete Time: 19:11 kb 04/03 18:24 Order name: CBC with Diff; Complete Time: 19:11 kb 04/03 18:24 Order name: Troponin HS; Complete Time: 19:11 kb 04/03 18:26 Order name: D-Dimer; Complete Time: 19:28 kb 04/03 18:24 Order name: XRAY Chest (1 view); Complete Time: 19:38 kb 04/03 18:24 Order name: EKG; Complete Time: 18:26 kb 04/03 18:24 Order name: Cardiac monitoring; Complete Time: 18:36 kb 04/03 18:24 Order name: EKG - Nurse/Tech; Complete Time: 18:45 kb 04/03 18:24 Order name: IV Saline Lock; Complete Time: 18:40 kb 04/03 18:24 Order name: Labs collected and sent; Complete Time: 18:40 kb 04/03 18:24 Order name: O2 Per Protocol; Complete Time: 18:36 kb 04/03 18:24 Order name: O2 Sat Monitoring; Complete Time: 18:36 kb EC:59 Rate is 71 beats/min. Rhythm is regular. QRS [place] is Normal. [place] interval is normal at kb 168 msec. QRS interval is normal at 82 msec. QT interval is normal at 417 msec. Administered Medications: No medications were administered Disposition Summary: 04/03/24 19:41 Discharge Ordered Notes: Location: Home kb Condition: Stable kb Diagnosis - Chest pain, unspecified kb Followup: kb - With: Emergency Department - When: As needed - Reason: Worsening of condition Followup: kb - With: Private Physician - When: 2 - 3 days - Reason: Recheck today's complaints, Continuance of care, Re-evaluation by your physician Discharge Instructions: - Discharge Summary Sheet kb - Nonspecific Chest Pain, Adult, [id number] kb Forms: - Medication Reconciliation Form kb - Antibiotic Education kb - Prescription Opioid Use kb - Patient Portal Instructions kb - Leadership Thank You Letter kb Signatures: Dispatcher [employer] Shelby Cobb FNP-C FNP-Karla Gar RN RN iw Merari Arnold RN RN [id number]
[2024-04-04 03:09] VITALS: TEMP 98.1; O2SAT 100
[2024-04-04 03:15] VITALS: BP 122/92
== END 2024-04-03 19:57 | disposition home or self-care (01) ==
LOC: ER 18:05
DX: R07.9 Chest pain, unspecified (principal)
CPT/HCPCS: 36415; 71045; 80048; 84484; 85025; 85379; 99284

== ENCOUNTER 2024-06-07 09:19 | Emergency (ER) | payer BC ==
[2024-06-07] MEDS ORDERED: NA CHLORIDE 0.9% 500 ML ONE (10:09)
[2024-06-07] MEDS ORDERED: AMLODIPINE 10 MG TAB ONE (10:09)
[2024-06-07] MEDS ORDERED: LORazepam 2 MG/ML VIAL ONE (10:09)
[2024-06-07 10:32] LABS: Absolute Eosinophils 0.1 K/uL (0-0.5); Absolute Lymphocytes (CBC) 2.2 K/uL (0.7-4.9); Absolute Monocytes 0.7 K/uL (0.1-1.3); Basophils % 0.5 % (0-1.3); Eosinophils % 0.7 % (0-4.4); Hematocrit 37.8 % (36.0-45.0); Hemoglobin 12.9 g/dL (12.0-15.0); Lymphocytes % 22.1 % (15.3-44.8); MCH 30.8 pg (27.0-35.0); MCV 90.5 fL (80-100); MPV 8.9 fL (7.6-11.3); Monocytes % 7.2 % (3.3-12.3); Neutrophils % 69.5 % (41.7-73.7); Platelets 263 thou/uL (152-406); RBC Red Blood Cell Count 4.18 M/uL (3.86-4.86); Red Cell Distribution Width 13.7 % (12.1-15.2)
--- NOTE | 2024-06-07 10:37 | RAD REPORT ---
EXAM: Chest Pa And Lat (2 Views) HISTORY: 38 years Female COUGH COMPARISON: 04/03/2024 FINDINGS: LUNGS/PLEURA: The lungs are clear. No pleural effusions or pneumothorax. No pulmonary edema. MEDIASTINUM: The mediastinal silhouette is within normal limits CARDIAC: The cardiac silhouette is within normal limits. UPPER ABDOMEN: No significant abnormality. BONES: No acute abnormality. LINES/TUBES/OTHER: N/A IMPRESSION: No evidence of acute cardiopulmonary disease.
[2024-06-07 10:48] LABS: ALT/SGPT 36 U/L (13-56); AST/SGOT 21 U/L (15-37); Albumin 3.9 g/dL (3.4-5.0); Alkaline Phosphatase 47 U/L (45-117); Anion Gap 9.8 mEq/L (5.0-15.0); BUN Blood Urea Nitrogen 11 mg/dL (7-18); Bicarbonate 23 mEq/L (21-32); Bilirubin Total 0.4 mg/dL (0.2-1.0); Globulin 3.8 g/dL (2.3-3.5); Glomerular Filtration Rate 118 ml/min (=/>90); Glucose Level 93 mg/dL (74-106); Potassium 3.8 mEq/L (3.5-5.1); Protein, Total 7.7 g/dL (6.4-8.2); Sodium Level 138 mEq/L (136-145)
[2024-06-07] MEDS ORDERED: ACETAMINOPHEN 500 MG TAB ONE (10:48)
[2024-06-07 10:49] LABS: Troponin High Sensitivity < 3.0 pg/mL (<58.9)
--- NOTE | 2024-06-07 10:50 | RAD REPORT ---
EXAMINATION: CT HEAD WITHOUT CONTRAST CLINICAL INDICATION: Female, 38 years old.Headache;Syncope TECHNIQUE: Axial CT images from the skull base to the vertex without intravenous contrast. Coronal an d sagittal reformatted images were created from the data set. One or more of the following dose reduction techniques were used: Automated exposure control, adjustment of the mA and/or kV according to patient size, and/or iterative reconstruction. Unless otherwise specified, incidental findings do not require dedicated imaging follow-up. [id number]. COMPARISON: 04/29/2022 FINDINGS: INTRACRANIAL: No acute intracranial hemorrhage. No hydrocephalus. No mass effect or midline shift. No significant white matter disease. VASCULATURE: No visualized abnormalities in the arteries or dural venous sinuses. SCALP/SKULL: No significant soft tissue or osseous abnormalities. SINUSES: The visualized paranasal sinuses and mastoid air cells are predominantly clear. IMPRESSION: No acute intracranial abnormality.
[2024-06-07 10:54] LABS: Specific Gravity 1.004 (1.005-1.030)
[2024-06-07 10:55] LABS: Specific Gravity < 1.005 (1.005-1.030); Sqamous Epithelial <5 /HPF (None Seen); Urine Bacteria None Seen /HPF (<20); Urine Bilirubin NEGATIVE (Negative); Urine Blood Negative (Negative); Urine Clarity Turbid (Clear); Urine Color Colorless (Yellow); Urine Culture Reflex Order NOT NEEDED; Urine Glucose NEGATIVE (Negative); Urine Ketones NEGATIVE (Negative); Urine Microscopic Reflex YN ORDER UMIC; Urine Nitrite NEGATIVE (Negative); Urine Protein NEGATIVE (Negative); Urine RBC None Seen /HPF (None Seen); Urine Urobilinogen Normal (Normal); Urine WBC None Seen /HPF (<5); Urine pH 5.5 (5.0-7.0)
--- NOTE | 2024-06-07 11:42 | ER ---
Nurse's Notes [facility] Name: Debra Elizondo Age: 38 yrs Sex: Female : 1985 Arrival Date: 06/07/2024 Time: 09:19 Bed 5 Private MD: Diagnosis: Essential (primary) hypertension;Syncope Near;Adjustment disorder with anxiety Presentation: 06/07 09:59 Chief complaint: Patient states: started feeling weird at work, feels pressure in right iw ear and felt like she was going to pass out. Coronavirus screen: At this time, the client does not indicate any symptoms associated with coronavirus-19. Ebola Screen: No symptoms or risks identified at this time. Initial Sepsis Screen: Does the patient meet any 2 criteria? No. Patient's initial sepsis screen is negative. Does the patient have a suspected source of infection? No. Patient's initial sepsis screen is negative. Risk Assessment: Do you want to hurt yourself or someone else? Patient reports no desire to harm self or others. Onset of symptoms was June 07, 2024. 09:59 Acuity: FREDA 3 iw 09:59 Method Of Arrival: Ambulatory iw Historical: - Allergies: 10:11 No Known Allergies; iw - Home Meds: 10:11 None [Active]; iw - PMHx: 10:11 GERD; iw - PSHx: 10:11 None; iw - Immunization history:: Adult Immunizations up to date. - Infectious Disease History:: Denies. - Family history:: not pertinent. - Social history:: Smoking status: Patient denies any tobacco usage or history of. Screenin:13 [facility] ED Fall Risk Assessment (Adult) History of falling in the last 3 months, iw including since admission No falls in past 3 months (0 pts) Confusion or Disorientation No (0 pts) Intoxicated or Sedated No (0 pts) Impaired Gait No (0 pts) Mobility Assist Device Used No (0 pt) Altered Elimination No (0 pt) Score/Fall Risk Level 0 - 2 = Low Risk Oriented to surroundings, Maintained a safe environment. Abuse screen: Denies threats or abuse. Nutritional screening: No deficits noted. Tuberculosis screening: No symptoms or risk factors identified. Assessment: 10:12 General: Appears in no apparent distress. Behavior is calm, cooperative. Pain: Denies iw pain. Neuro: Level of Consciousness is awake, alert, obeys commands, Oriented to person, place, time, situation, Reports blurred vision dizziness. Cardiovascular: Patient's skin is warm and dry. Cardiovascular: Reports lightheadedness. Respiratory: Respiratory effort is even, unlabored, Respiratory pattern is regular, symmetrical. GI: Abdomen is non-distended. Derm: Skin is intact, is healthy with good turgor. Musculoskeletal: Range of motion: intact in all extremities. 11:30 Reassessment: Patient appears in no apparent distress at this time. Patient and/or hb family updated on plan of care and expected duration. Pain level reassessed. Patient is alert, oriented x 3, equal unlabored respirations, skin warm/dry/pink. Vital Signs: 10:00 BP 147 / 113; Pulse 86; Resp 16; Pulse Ox 100% on R/A; Pain 0/10; iw 11:32 BP 128 / 86; Pulse 80; Resp 16; Pulse Ox 100% on R/A; iw 10:00 Pain Scale: Adult iw ED Course: 09:19 Patient arrived in ED. mr 09:20 Raúl Cervantes MD is Attending Physician. trisha 09:46 Chest Pa And Lat (2 Views) XRAY In Process Unspecified. EDMS 09:52 Karla Caro, RN is Primary Nurse. iw 10:00 Triage completed. iw 10:11 Arm band placed on. iw 10:11 EKG done, by ED staff, reviewed by Raúl Cervantes MD. em1 10:27 Troponin High Sensitivity Sent. hb 10:27 Comprehensive Metabolic Panel Sent. hb 10:27 CBC with Diff Sent. hb 10:27 Initial lab(s) drawn, by sc, sent to lab. Inserted saline lock: 22 gauge in right em1 forearm, using aseptic technique. Blood collected. Flushed with 10 mL NS. 10:30 Patient has correct armband on for positive identification. Bed in low position. Call hb light in reach. 10:30 Provided Education on: use of call light . hb 10:32 CT Head Brain wo Cont In Process Unspecified. EDMS 12:06 No provider procedures requiring assistance completed. IV discontinued, intact, hb bleeding controlled, No redness/swelling at site. Pressure dressing applied. Administered Medications: 10:26 Drug: NS 0.9% IV 500 ml 500 ml IV at 1 bolus once; to be given as a bolus over 30 hb minutes Volume: 500 ml; Route: IV; Rate: 1 bolus; Site: right antecubital; 11:40 Follow up: Response: No adverse reaction; IV Status: Completed infusion; IV Intake: hb 500ml 10:26 Drug: Ativan IVP 0.5 mg IVP once Route: IVP; Site: right antecubital; hb 10:50 Follow up: Response: No adverse reaction hb 10:26 Drug: Norvasc PO 10 mg PO once Route: PO; hb 11:40 Follow up: Response: No adverse reaction hb 10:50 Drug: Acetaminophen PO 1000 mg PO once Route: PO; hb 11:40 Follow up: Response: No adverse reaction hb Medication: 10:13 VIS not applicable for this client. iw Intake: 11:40 IV: 500ml; Total: 500ml. hb Outcome: 11:42 Discharge ordered by . trisha 12:06 Discharged to home ambulatory, hb 12:06 Condition: stable 12:06 Discharge instructions given to patient, Instructed on discharge instructions, follow up and referral plans. medication usage, Demonstrated understanding of instructions, follow-up care, medications, Prescriptions given X 2, 12:06 Patient left the ED. hb Signatures: Dispatcher [employer] EDMS Raúl Cervantes MD MD cha Rivera, Mary, Reg Reg mr Karla Caro, Sudhir Polanco RN, Heather, RN RN hb
--- NOTE | 2024-06-07 11:43 | EDPHYS ---
Physician Documentation [facility] Name: Debra Elizondo Age: 38 yrs Sex: Female : 1985 Arrival Date: 06/07/2024 Time: 09:19 Bed 5 Private MD: ED Physician Raúl Cervantes HPI: 06/07 09:56 This 38 yrs old Female presents to ER via Unassigned with complaints of High trisha Blood Pressure, Blurred Vision. 09:56 The patient has elevated blood pressure and discovered this WORK. Onset: The trisha symptoms/episode began/occurred just prior to arrival. Modifying factors: The symptoms are aggravated by activity, The symptoms are alleviated by remaining still. Associated signs and symptoms: Pertinent positives: headache, lightheadedness. Severity of symptoms: At its worst the blood pressure was moderate, in the emergency department the blood pressure is unchanged. It is unknown whether or not the patient has had similar symptoms in the past. Historical: - Allergies: 10:11 No Known Allergies; iw - Home Meds: 10:11 None [Active]; iw - PMHx: 10:11 GERD; iw - PSHx: 10:11 None; iw - Immunization history:: Adult Immunizations up to date. - Infectious Disease History:: Denies. - Family history:: not pertinent. - Social history:: Smoking status: Patient denies any tobacco usage or history of. ROS: 09:57 Constitutional: Negative for fever, chills, and weight loss, Eyes: Negative for injury, trisha pain, redness, and discharge, ENT: Negative for injury, pain, and discharge, Neck: Negative for injury, pain, and swelling, Cardiovascular: Negative for chest pain, palpitations, and edema, Respiratory: Negative for shortness of breath, cough, wheezing, and pleuritic chest pain, Abdomen/GI: Negative for abdominal pain, nausea, vomiting, diarrhea, and constipation, Back: Negative for injury and pain, : Negative for injury, bleeding, discharge, and swelling, MS/Extremity: Negative for injury and deformity, Skin: Negative for injury, rash, and discoloration, Psych: Negative for depression, anxiety, suicide ideation, homicidal ideation, and hallucinations, Allergy/Immunology: Negative for hives, rash, and allergies, Endocrine: Negative for neck swelling, polydipsia, polyuria, polyphagia, and marked weight changes, Hematologic/Lymphatic: Negative for swollen nodes, abnormal bleeding, and unusual bruising, 09:57 Neuro: Positive for headache, near syncope, weakness, Exam: 09:57 Constitutional: This is a well developed, well nourished patient who is awake, alert, trisha and in no acute distress. Head/Face: Normocephalic, atraumatic. Eyes: Pupils equal round and reactive to light, extra-ocular motions intact. Lids and lashes normal. Conjunctiva and sclera are non-icteric and not injected. Cornea within normal limits. Periorbital areas with no swelling, redness, or edema. ENT: Nares patent. No nasal discharge, no septal abnormalities noted. Tympanic membranes are normal and external auditory canals are clear. Oropharynx with no redness, swelling, or masses, exudates, or evidence of obstruction, uvula midline. Mucous membranes moist. Neck: Trachea midline, no thyromegaly or masses palpated, and no cervical lymphadenopathy. Supple, full range of motion without nuchal rigidity, or vertebral point tenderness. No Meningismus. Chest/axilla: Normal chest wall appearance and motion. Nontender with no deformity. No lesions are appreciated. Cardiovascular: Regular rate and rhythm with a normal S1 and S2. No gallops, murmurs, or rubs. Normal PMI, no JVD. No pulse deficits. Respiratory: Lungs have equal breath sounds bilaterally, clear to auscultation and percussion. No rales, rhonchi or wheezes noted. No increased work of breathing, no retractions or nasal flaring. Abdomen/GI: Soft, non-tender, with normal bowel sounds. No distension or tympany. No guarding or rebound. No evidence of tenderness throughout. Back: No spinal tenderness. No costovertebral tenderness. Full range of motion. Skin: Warm, dry with normal turgor. Normal color with no rashes, no lesions, and no evidence of cellulitis. MS/ Extremity: Pulses equal, no cyanosis. Neurovascular intact. Full, normal range of motion., bilateral aka Neuro: Awake and alert, GCS 15, oriented to person, place, time, and situation. Cranial nerves II-XII grossly intact. Motor strength 5/5 in all extremities. Sensory grossly intact. Cerebellar exam normal. Normal gait. Psych: Awake, alert, with orientation to person, place and time. Behavior, mood, and affect are within normal limits. 10:18 ECG was reviewed by the Attending Physician. [facility] Vital Signs: 10:00 BP 147 / 113; Pulse 86; Resp 16; Pulse Ox 100% on R/A; Pain 0/10; iw 11:32 BP 128 / 86; Pulse 80; Resp 16; Pulse Ox 100% on R/A; iw 10:00 Pain Scale: Adult iw MDM: 09:20 Medical Screening Exam initiated trisha 09:57 Differential diagnosis: hypertensive crisis, Malignant HTN, CVA, intracerebral trisha hemorrhage. Differential Diagnosis: cardiac arrhythmia, cerebrovascular accident, drug effect, emotional response, GI bleed, idiopathic syncope, pseudo seizure, seizure, vasovagal episode. Data reviewed: vital signs, nurses notes, lab test result(s), EKG, radiologic studies, CT scan, plain films. Consideration of Admission/Observation Escalation of care including admission/observation considered. I considered the following discharge prescriptions or medication management in the emergency department Medications were administered in the Emergency Department. See MAR. Independent interpretation of the following test(s) in the Emergency Department EKG: See my EKG interpretation above. Test considered but Not performed: Ultrasound NO 2 D ECHO. Historians other than the Patient: PT WELL INFORMED. Care significantly affected by the following chronic conditions: NONE. Counseling: I had a detailed discussion with the patient and/or guardian regarding the historical points, exam findings, and any diagnostic results supporting the discharge/admit diagnosis, lab results, radiology results, the need for outpatient follow up, for definitive care, a family practitioner. 06/07 09:21 Order name: CBC with Diff; Complete Time: : [facility] 06/07 09:21 Order name: Comprehensive Metabolic Panel; Complete Time: 11: [facility] 06/07 09:21 Order name: Troponin High Sensitivity; Complete Time: 11: [facility] 06/07 09:21 Order name: Urinalysis w/ reflexes; Complete Time: : [facility] 06/07 09:21 Order name: PREGU; Complete Time: 11: [facility] 06/07 09:21 Order name: Chest Pa And Lat (2 Views) XRAY; Complete Time: 11: [facility] 06/07 09:56 Order name: CT Head Brain wo Cont; Complete Time: 11: [facility] 06/07 09:21 Order name: EKG; Complete Time: 09:21 [facility] 06/07 09:21 Order name: EKG - Nurse/Tech; Complete Time: 10:27 [facility] 06/07 11:08 Order name: Blood Pressure Recheck; Complete Time: 11:33 [facility] EC:18 Rate is 83 beats/min. Rhythm is regular. QRS [place] is Normal. [place] interval is normal. QRS [place] interval is normal. QT interval is normal. No Q waves. T waves are Normal. No ST changes noted. Clinical impression: Normal ECG and No evidence of ischemia. Interpreted by me. Reviewed by me. Administered Medications: 10:26 Drug: NS 0.9% IV 500 ml 500 ml IV at 1 bolus once; to be given as a bolus over 30 hb minutes Volume: 500 ml; Route: IV; Rate: 1 bolus; Site: right antecubital; 11:40 Follow up: Response: No adverse reaction; IV Status: Completed infusion; IV Intake: hb 500ml 10:26 Drug: Ativan IVP 0.5 mg IVP once Route: IVP; Site: right antecubital; hb 10:50 Follow up: Response: No adverse reaction hb 10:26 Drug: Norvasc PO 10 mg PO once Route: PO; hb 11:40 Follow up: Response: No adverse reaction hb 10:50 Drug: Acetaminophen PO 1000 mg PO once Route: PO; hb 11:40 Follow up: Response: No adverse reaction hb Disposition Summary: 06/07/24 11:42 Discharge Ordered Notes: Location: Home trisha Problem: new trisha Symptoms: have improved trisha Condition: Stable trisha Diagnosis - Essential (primary) hypertension trisha - Syncope Near trisha - Adjustment disorder with anxiety trisha Followup: trisha - With: Private Physician - When: 2 - 3 days - Reason: Recheck today's complaints, Continuance of care, Re-evaluation by your physician Discharge Instructions: - Discharge Summary Sheet trisha - Hypertension, Adult trisha - Near-Syncope trisha - Near-Syncope, [id number] trisha - Hypertension, Adult, [id number] trisha - Managing Your Hypertension trisha - Managing Stress, Adult trisha Forms: - Medication Reconciliation Form trisha - Antibiotic Education trisha - Prescription Opioid Use trisha - Patient Portal Instructions trisha - Leadership Thank You Letter trisha Prescriptions: - Hydroxyzine HCl 25 mg Oral tablet - take 1 tablet ORAL route every 6 hours As needed prn anxiety; 30 tablet; trisha Refills: 0, Product Selection Permitted - Norvasc 5 mg Oral Tablet - take 1 tablet ORAL route once daily; 20 tablet; Refills: 0, Product Selection trsiha Permitted Signatures: Dispatcher [employer] Raúl Spence MD MD cha Williams, Irene, RN RN Sade Montano RN RN
[2024-06-07 12:23] VITALS: O2SAT 100
[2024-06-07 12:29] VITALS: BP 128/86
--- NOTE | 2024-06-07 13:38 | EKG ---
Test Date: 2024-06-07 Test Time: 10:11:02 Sensor Technician: GIULIA MEASUREMENT RESULTS: Intervals: Rate: 83 HI: 180 QRSD: 82 QT: 368 QTc: 432 [place]: P: 39 HI: 180 QRS: 37 T: 30 INTERPRETIVE STATEMENTS: Normal sinus rhythm Normal ECG Compared to ECG 04/03/2024 18:42:55 No significant changes Electronically Signed On 06-07-24 13:37:12 TIRE GROOVER by Juaquin Doshi
== END 2024-06-07 12:06 | disposition home or self-care (01) ==
LOC: ER 09:19
DX: I10 Essential (primary) hypertension (principal); R55 Syncope and collapse; F43.22 Adjustment disorder with anxiety
CPT/HCPCS: 96361; 93005; 85025; 81001; 36415; 81025; 84484; 80053; 70450; 71046; 96374; 99284; J7040